=== PATIENT | female | born 1955 | race Caucasian/White ===

== ENCOUNTER → 2017-02-21 | Outpatient (CLI) | payer BC ==
--- NOTE | 2017-02-22 12:19 | MM ---
Reason for exam: screening (asymptomatic). Last mammogram was performed 1 year ago. History: Patient is postmenopausal. Family history of breast cancer in paternal grandmother at age 70 and breast cancer in maternal aunt at age 40. Physical Findings: A clinical breast exam by your physician is recommended on an annual basis and results should be correlated with mammographic findings. MG Screening Mammo w CAD Bilateral CC and MLO view(s) were taken. Prior study comparison: February 21, 2016, bilateral MG 3d screening mammo w/cad. There are scattered fibroglandular densities. There is no discrete abnormality. No significant changes when compared with prior studies. ASSESSMENT: Negative, BI-RAD 1 RECOMMENDATION: Routine screening mammogram of both breasts in 1 year.
== END | disposition home or self-care (01) ==
LOC: RADMAMWWP 13:19
PROVIDERS: ATTEND Family Medicine
DX: Z12.31 Encounter for screening mammogram for malignant neoplasm of breast (principal)

== ENCOUNTER 2017-12-12 23:46 | Inpatient (IN) | payer BC ==
[2017-12-13] MEDS ORDERED: ACETAMINOPHEN TAB 500 MG TAB PO STA (00:19)
[2017-12-13] MEDS ORDERED: IBUPROFEN 600 MG TAB PO STA (00:19)
--- NOTE | 2017-12-13 00:33 | ED ---
General Adult HPI - General Chief complaint: Fall Stated complaint: Fall, Weakness Time Seen by Provider: 12/13/17 00:13 Source: patient Mode of arrival: wheelchair Limitations: no limitations - History of Present Illness Initial comments: 62-year-old female patient presents to the emergency department today for evaluation of fever and weakness. Patient states that she came down with a sore throat, mild nasal congestion, and fever on Saturday. She states that she did see her primary care physician was diagnosed with influenza despite negative testing and started on Tamiflu. Patient states that she has been taking the Tamiflu as directed. She states that she has continued to have fevers and has been getting progressively more weak. She states that tonight she was coming down the stairs her legs felt very weak and she fell down the last 4 steps landing on her knees. Patient states that she has mild tenderness over the knees, but no difficulty with range of motion or significant pain. She states that she has been feeling mildly nauseated with this. She denies any cough, shortness of breath, abdominal pain, or back pain. Patient denies any recent rash, chest pain, vomiting, diarrhea, constipation, back pain, numbness, tingling, dizziness, hematuria, dysuria, urinary urgency, urinary frequency, headache, visual changes, or any other complaints. - Related Data Allergies Allergy/AdvReac Type Severity Reaction Status Date / Time dapagliflozin [From [facility]] Allergy Chest Pain Verified 12/12/17 23:57 Review of Systems ROS Statement: Those systems with pertinent positive or pertinent negative responses have been documented in the HPI. ROS Other: All systems not noted in ROS Statement are negative. Past Medical History Past Medical History: Asthma, Diabetes Mellitus, Hyperlipidemia, Hypertension, Thyroid Disorder History of Any Multi-Drug Resistant Organisms: None Reported Past Surgical History: Section, Hernia Repair, Hysterectomy, Joint Replacement, Orthopedic Surgery Additional Past Surgical History / Comment(s): bilateral knee replacement, left knee scope Past Psychological History: Anxiety Smoking Status: Former smoker Past Alcohol Use History: None Reported Past Drug Use History: None Reported General Exam Limitations: no limitations General appearance: alert, in no apparent distress Eye exam: Present: normal appearance, PERRL, EOMI. Absent: scleral icterus, conjunctival injection, periorbital swelling ENT exam: Present: normal exam, normal oropharynx, mucous membranes moist, TM's normal bilaterally Respiratory exam: Present: normal lung sounds bilaterally. Absent: respiratory distress, wheezes, rales, rhonchi, stridor Cardiovascular Exam: Present: normal rhythm, tachycardia, normal heart sounds. Absent: systolic murmur, diastolic murmur, rubs, gallop, clicks GI/Abdominal exam: Present: soft, normal bowel sounds. Absent: distended, tenderness, guarding, rebound, rigid Neurological exam: Present: alert, oriented X3, CN II-XII intact Psychiatric exam: Present: normal affect, normal mood Skin exam: Present: warm, dry, intact, normal color. Absent: rash Course Vital Signs 12/12/17 12/13/17 23:52 01:32 Temperature 101.9 F H 100.9 F H Pulse Rate 126 H 105 H Respiratory 17 18 Rate Blood Pressure 134/64 101/55 O2 Sat by Pulse 94 L 95 Oximetry - Reevaluation(s) Reevaluation #1: 12/13/17 02:21 Sepsis diagnosed at 0221. Medical Decision Making - Medical Decision Making 62-year-old female patient presented to the emergency department today for evaluation of fever and weakness. Physical examination was unremarkable. Patient labs reviewed and did show white blood cell count of 19.9, hemoglobin of 11, neutrophils 17.2, potassium 3.0, urinalysis did show cloudy appearance with 1+ protein, trace blood, positive nitrite, large leukocyte esterase, 9 red blood cells, 121 white blood cells, few white blood cell clumps, many bacteria, 4 hyaline casts, and moderate mucus. Patient was negative for influenza or strep. Chest x-ray was negative for any acute cardiopulmonary process. Patient does meet sepsis criteria elevated heart rate, elevated temperature, and white count of 19.9. We will start patient on Rocephin and give her IV fluids. Potassium will be replaced orally. Patient will be admitted to Dr. Velasquez's service. - Lab Data Result diagrams: 12/13/17 00:50 12/13/17 00:50 Lab Results 12/13/17 12/13/17 12/13/17 Range/Units 00:50 00:50 00:50 WBC 19.9 H (3.8-10.6) k/uL RBC 3.95 (3.80-5.40) m/uL Hgb 11.0 L (11.4-16.0) gm/dL Hct 33.2 L (34.0-46.0) % MCV 84.0 (80.0-100.0) fL MCH 27.9 (25.0-35.0) pg MCHC 33.2 (31.0-37.0) g/dL RDW 13.7 (11.5-15.5) % Plt Count 305 (150-450) k/uL Neutrophils % 87 % Lymphocytes % 3 % Monocytes % 8 % Eosinophils % 1 % Basophils % 0 % Neutrophils # 17.2 H (1.3-7.7) k/uL Lymphocytes # 0.6 L (1.0-4.8) k/uL Monocytes # 1.5 H (0-1.0) k/uL Eosinophils # 0.1 (0-0.7) k/uL Basophils # 0.0 (0-0.2) k/uL PT (9.0-12.0) sec INR (<1.2) APTT (22.0-30.0) sec Sodium 137 (137-145) mmol/L Potassium 3.0 L* (3.5-5.1) mmol/L Chloride 102 (98-107) mmol/L Carbon Dioxide 21 L (22-30) mmol/L Anion Gap 14 mmol/L BUN 15 (7-17) mg/dL Creatinine 0.90 (0.52-1.04) mg/dL Est GFR (CKD-EPI)AfAm 80 (>60 ml/min/1.73 sqM) Est GFR (CKD-EPI)NonAf 70 (>60 ml/min/1.73 sqM) Glucose 144 H (74-99) mg/dL Plasma Lactic Acid Abram (0.7-2.0) mmol/L Calcium 10.2 (8.4-10.2) mg/dL Total Bilirubin 0.8 (0.2-1.3) mg/dL AST 24 (14-36) U/L ALT 37 (9-52) U/L Alkaline Phosphatase 108 (38-126) U/L Total Protein 6.1 L (6.3-8.2) g/dL Albumin 3.4 L (3.5-5.0) g/dL Urine Color Urine Appearance (Clear) Urine pH (5.0-8.0) Ur Specific [place] (1.001-1.035) Urine Protein (Negative) Urine Glucose (UA) (Negative) Urine Ketones (Negative) Urine Blood (Negative) Urine Nitrite (Negative) Urine Bilirubin (Negative) Urine Urobilinogen (<2.0) mg/dL Ur Leukocyte Esterase (Negative) Urine RBC (0-5) /hpf Urine WBC (0-5) /hpf Urine WBC Clumps (None) /hpf Ur Squamous Epith Cells (0-4) /hpf Urine Bacteria (None) /hpf Hyaline Casts (0-2) /lpf Urine Mucus (None) /hpf Influenza Type A RNA Not Detected (Not Detectd) Influenza Type B (PCR) Not Detected (Not Detectd) Group A Strep Rapid (Negative) 12/13/17 12/13/17 12/13/17 Range/Units 00:50 00:50 00:50 WBC (3.8-10.6) k/uL RBC (3.80-5.40) m/uL Hgb (11.4-16.0) gm/dL Hct (34.0-46.0) % MCV (80.0-100.0) fL MCH (25.0-35.0) pg MCHC (31.0-37.0) g/dL RDW (11.5-15.5) % Plt Count (150-450) k/uL Neutrophils % % Lymphocytes % % Monocytes % % Eosinophils % % Basophils % % Neutrophils # (1.3-7.7) k/uL Lymphocytes # (1.0-4.8) k/uL Monocytes # (0-1.0) k/uL Eosinophils # (0-0.7) k/uL Basophils # (0-0.2) k/uL PT 10.7 (9.0-12.0) sec INR 1.1 (<1.2) APTT 25.7 (22.0-30.0) sec Sodium (137-145) mmol/L Potassium (3.5-5.1) mmol/L Chloride (98-107) mmol/L Carbon Dioxide (22-30) mmol/L Anion Gap mmol/L BUN (7-17) mg/dL Creatinine (0.52-1.04) mg/dL Est GFR (CKD-EPI)AfAm (>60 ml/min/1.73 sqM) Est GFR (CKD-EPI)NonAf (>60 ml/min/1.73 sqM) Glucose (74-99) mg/dL Plasma Lactic Acid Abram 2.0 (0.7-2.0) mmol/L Calcium (8.4-10.2) mg/dL Total Bilirubin (0.2-1.3) mg/dL AST (14-36) U/L ALT (9-52) U/L Alkaline Phosphatase (38-126) U/L Total Protein (6.3-8.2) g/dL Albumin (3.5-5.0) g/dL Urine Color Yellow Urine Appearance Cloudy H (Clear) Urine pH 6.0 (5.0-8.0) Ur Specific [place] 1.020 (1.001-1.035) Urine Protein 1+ H (Negative) Urine Glucose (UA) Negative (Negative) Urine Ketones Negative (Negative) Urine Blood Trace H (Negative) Urine Nitrite Positive H (Negative) Urine Bilirubin Negative (Negative) Urine Urobilinogen <2.0 (<2.0) mg/dL Ur Leukocyte Esterase Large H (Negative) Urine RBC 9 H (0-5) /hpf Urine WBC 121 H (0-5) /hpf Urine WBC Clumps Few H (None) /hpf Ur Squamous Epith Cells 3 (0-4) /hpf Urine Bacteria Many H (None) /hpf Hyaline Casts 4 H (0-2) /lpf Urine Mucus Moderate H (None) /hpf Influenza Type A RNA (Not Detectd) Influenza Type B (PCR) (Not Detectd) Group A Strep Rapid (Negative) 12/13/17 Range/Units 00:50 WBC (3.8-10.6) k/uL RBC (3.80-5.40) m/uL Hgb (11.4-16.0) gm/dL Hct (34.0-46.0) % MCV (80.0-100.0) fL MCH (25.0-35.0) pg MCHC (31.0-37.0) g/dL RDW (11.5-15.5) % Plt Count (150-450) k/uL Neutrophils % % Lymphocytes % % Monocytes % % Eosinophils % % Basophils % % Neutrophils # (1.3-7.7) k/uL Lymphocytes # (1.0-4.8) k/uL Monocytes # (0-1.0) k/uL Eosinophils # (0-0.7) k/uL Basophils # (0-0.2) k/uL PT (9.0-12.0) sec INR (<1.2) APTT (22.0-30.0) sec Sodium (137-145) mmol/L Potassium (3.5-5.1) mmol/L Chloride (98-107) mmol/L Carbon Dioxide (22-30) mmol/L Anion Gap mmol/L BUN (7-17) mg/dL Creatinine (0.52-1.04) mg/dL Est GFR (CKD-EPI)AfAm (>60 ml/min/1.73 sqM) Est GFR (CKD-EPI)NonAf (>60 ml/min/1.73 sqM) Glucose (74-99) mg/dL Plasma Lactic Acid Abram (0.7-2.0) mmol/L Calcium (8.4-10.2) mg/dL Total Bilirubin (0.2-1.3) mg/dL AST (14-36) U/L ALT (9-52) U/L Alkaline Phosphatase (38-126) U/L Total Protein (6.3-8.2) g/dL Albumin (3.5-5.0) g/dL Urine Color Urine Appearance (Clear) Urine pH (5.0-8.0) Ur Specific [place] (1.001-1.035) Urine Protein (Negative) Urine Glucose (UA) (Negative) Urine Ketones (Negative) Urine Blood (Negative) Urine Nitrite (Negative) Urine Bilirubin (Negative) Urine Urobilinogen (<2.0) mg/dL Ur Leukocyte Esterase (Negative) Urine RBC (0-5) /hpf Urine WBC (0-5) /hpf Urine WBC Clumps (None) /hpf Ur Squamous Epith Cells (0-4) /hpf Urine Bacteria (None) /hpf Hyaline Casts (0-2) /lpf Urine Mucus (None) /hpf Influenza Type A RNA (Not Detectd) Influenza Type B (PCR) (Not Detectd) Group A Strep Rapid Negative (Negative) - Radiology Data Radiology results: report reviewed, image reviewed Two-view x-ray of the chest shows a heart media's enema normal. Lungs are clear. Diaphragm is normal. Bony thorax is intact. There is a 2 mm calcified granuloma in the right lower lobe. Impression by Dr. Reeder shows no active cardiopulmonary disease. Normal heart. No change. Disposition Clinical Impression: Sepsis, Urinary tract infection, Hypokalemia Disposition: ADMITTED IP TO THIS HOSP Condition: Serious Is patient prescribed a controlled substance at d/c from ED?: No Referrals: Jorge Vidal III, MD [Primary Care Provider] - 1-2 days Decision to Admit Reason: Admit from EC Decision Date: 12/13/17 Decision Time: 02:32
[2017-12-13] MEDS: SODIUM CHLORIDE 0.9% 500 ML IV SCH ×2 (00:50→00:51)
[2017-12-13 01:11] LABS: Basophils % (A) 0 %; Eosinophils # (A) 0.1 k/uL (0-0.7); Eosinophils % (A) 1 %; HCT 33.2 % (34.0-46.0); Lymphocytes # (A) 0.6 k/uL (1.0-4.8); Lymphocytes % (A) 3 %; MCH 27.9 pg (25.0-35.0); MCHC 33.2 g/dL (31.0-37.0); Mean Platelet Volume 7.1; Monocytes # (A) 1.5 k/uL (0-1.0); Monocytes % (A) 8 %; Neutrophils # (A) 17.2 k/uL (1.3-7.7); Neutrophils % (A) 87 %; Platelet Count 305 k/uL (150-450); RBC 3.95 m/uL (3.80-5.40); RDW 13.7 % (11.5-15.5); WBC 19.9 k/uL (3.8-10.6)
--- NOTE | 2017-12-13 01:12 | XR ---
EXAMINATION TYPE: XR chest 2V DATE OF EXAM: 12/13/2017 COMPARISON: 10/03/2015 HISTORY: Fever TECHNIQUE: Frontal and lateral views of the chest are obtained. FINDINGS: Heart and mediastinum are normal. Lungs are clear. Diaphragm is normal. Bony thorax is int act. There is a 2 mm calcified granuloma in the right lower lobe. IMPRESSION: No active cardiopulmonary disease. Normal heart. No change.
[2017-12-13 01:14] LABS: Appearance,Urine Cloudy (Clear); Bacteria,Urine Many /hpf; Bilirubin,Urine Negative (Negative); Blood,Urine Trace (Negative); Color,Urine Yellow; Glucose,Urine (UA) Negative (Negative); Hyaline Casts,Urine 4 /lpf (0-2); Ketones,Urine Negative (Negative); Leukocyte Esterase,Urine Large (Negative); Mucus,Urine Moderate /hpf; Nitrite,Urine Positive (Negative); Protein,Urine 1+ (Negative); RBC,Urine 9 /hpf (0-5); Squamous Epithelial Cell,Urine 3 /hpf (0-4); Urobilinogen,Urine <2.0 mg/dL (<2.0); WBC,Urine 121 /hpf (0-5)
[2017-12-13 01:20] LABS: INR 1.1 (<1.2); Partial Thromboplastin Time 25.7 sec (22.0-30.0); Prothrombin Time 10.7 sec (9.0-12.0)
[2017-12-13 01:21] LABS: Albumin 3.4 g/dL (3.5-5.0); Calcium 10.2 mg/dL (8.4-10.2); Total Bilirubin 0.8 mg/dL (0.2-1.3); Total Protein 6.1 g/dL (6.3-8.2)
[2017-12-13] MEDS ORDERED: Potassium Replacement Protocol 1 EACH MISC MISCELLANE PRN (02:19)
[2017-12-13] MEDS ORDERED: cefTRIAXone IN SWFI 1,000 MG/10 ML SYRINGE IVP STA (02:21)
[2017-12-13] MEDS ORDERED: NALOXONE 0.4 MG/ML 1 ML VIAL IV PRN (02:21)
[2017-12-13] MEDS ORDERED: IBUPROFEN 400 MG TAB PO PRN (02:21)
[2017-12-13] MEDS ORDERED: SODIUM CHLORIDE 0.9% 1,000 ML IV ONE (02:25)
[2017-12-13] MEDS ORDERED: SODIUM CHLORIDE 0.9% 500 ML IV ONE (02:25)
[2017-12-13] MEDS: SODIUM CHLORIDE 0.9% 1,000 ML IV SCH ×2 (02:46→11:36)
[2017-12-13] MEDS ORDERED: Magnesium Replacement Protocol 1 EACH MISC MISCELLANE PRN (03:02)
[2017-12-13] MEDS: MAGNESIUM SULFATE-D5W PMX 1 GM in DEXTROSE/WATER 1 100ML.BAG IVPB SCH ×2 (03:16→05:56)
[2017-12-13] MEDS: POTASSIUM CHLORIDE ER 20 MEQ TAB.ER PO SCH ×2 (03:18→10:06)
[2017-12-13 05:49] VITALS: BMI 32.1
[2017-12-13] MEDS: ACETAMINOPHEN TAB 325 MG TAB PO PRN ×3 (08:22→21:58)
[2017-12-13] MEDS ORDERED: ALPRAZolam 0.25 MG TAB PO PRN (10:09)
[2017-12-13] MEDS: metFORMIN 500 MG TAB PO SCH ×2 (10:49→20:26)
[2017-12-13] MEDS: LEVOTHYROXINE 137 MCG TAB PO SCH (10:50)
[2017-12-13] MEDS: OMEGA 3 1200MG PO SCH ×2 (10:52→21:59)
[2017-12-13] MEDS: IBUPROFEN 400 MG TAB PO PRN ×2 (11:20→23:38)
[2017-12-13 11:55] LABS: Glucose,Whole Blood 182 mg/dL (75-99)
[2017-12-13] MEDS: INSULIN ASPART 100 UNIT/ML 1 ML 10 ML VIAL SQ SCH ×3 (12:05→21:51)
[2017-12-13] MEDS ORDERED: ALBUTEROL NEBULIZED 2.5 MG/3 ML INHALATION PRN (12:28)
[2017-12-13 12:48] LABS: Potassium 3.4 mmol/L (3.5-5.1)
[2017-12-13] MEDS: 0.9% NACL WITH KCL 40 MEQ/L 1,000 ML IV SCH ×2 (13:40→20:10)
[2017-12-13] MEDS: PANTOPRAZOLE 40 MG/10 ML VIAL IVP SCH (13:44)
[2017-12-13] MEDS: cefTRIAXone IN SWFI 1,000 MG/10 ML SYRINGE IVP SCH (14:14)
--- NOTE | 2017-12-13 14:41 | HP ---
HISTORY AND PHYSICAL CHIEF COMPLAINTS: Fall, weakness and fever. HISTORY OF PRESENT ILLNESS: This 62-year-old woman with a past medical history of diabetes, asthma, hypertension, hyperlipidemia, hypothyroidism, anxiety being followed by Dr. Vidal in the outpatient setting was not feeling well since Saturday. The patient had cold sweats, shaking, chills and subsequently was treated empirically with Tamiflu on outpatient setting. Influenza test was negative. At this time, patient complains of back pain and complaints of weakness. The patient apparently almost fell and the patient had fever and the patient came to [facility] and admitted for further evaluation and treatment. Pyelonephritis suspected. The patient also had some back pain also. . No history of any chest pain, palpitations, hematochezia or melena or diarrhea at this time. PAST MEDICAL HISTORY: History of asthma, diabetes, hypertension, hyperlipidemia, hypothyroidism. MEDICATIONS: Medications prior to admission include home medications are: 1. Januvia 100 mg p.o. at bedtime. 2. Glucophage 1000 mg p.o. b.i.d. 3. Fish oil 1200 mg p.o. b.i.d. 4. Singulair 10 mg at bedtime. 5. Lisinopril 20/25 one p.o. q.a.m. 6. Synthroid 137 mcg p.o. q.a.m. 7. Welchol 1875 mg p.o. b.i.d. 8. Symbicort 80/4.5 two puffs b.i.d. 9. Lipitor 10 mg at bedtime. 10.Ecotrin 81 mg at bedtime. 11.ProAir HFA 1 to 2 puffs q.6 p.r.n. 12.Xanax 0.5 t.i.d. p.r.n. ALLERGIES: Allergies are ACTOS, FARXIGA FENOFIBRATE, WALNUT. FAMILY HISTORY: History of CVA, TIA, diabetes mellitus, seizure disorder, carotid artery surgery , seizures in the family. SOCIAL HISTORY: Previous history of smoking. No history of current smoking or alcohol intake. REVIEW OF SYSTEMS: ENT: No diminished hearing or diminished vision. CARDIOVASCULAR: No angina. RESPIRATORY: No cough or hemoptysis. GI: As mentioned earlier. : As mentioned earlier. NERVOUS SYSTEM: As mentioned earlier. ALLERGY/IMMUNOLOGY: Asthma. MUSCULOSKELETAL: As mentioned earlier. HEMATOLOGY/ONCOLOGY: No history of anemia. ENDOCRINE: Diabetes and hypothyroidism. CONSTITUTIONAL: As mentioned earlier. DERMATOLOGY: Negative. RHEUMATOLOGY: Negative. PSYCHIATRY: As mentioned earlier. PHYSICAL EXAMINATION: The patient is alert, oriented x3. Pulse 128, blood pressure 136/71, respiration 20, temperature 102.9, pulse ox 98% on room air. HEENT: Conjunctivae normal. Oral mucosa moist. Neck is no jugular venous distention. No carotid bruit. No thyroid enlargement. No lymph node enlargement. CARDIOVASCULAR: S1, S2 muffled. No S3, no S4. RESPIRATORY: Breath sounds diminished at the bases. No rhonchi, no crackles. ABDOMEN: Soft. Mild diffuse discomfort in the back area. Otherwise no guarding. No mass palpable. LEGS: No edema, no swelling. NERVOUS SYSTEM: Higher function as mentioned earlier. Moves all 4 limbs. No focal motor deficits. LYMPHATICS: No lymphadenopathy of the neck, axillae or groin. SKIN: No ulcer, rash or bleeding. LABS: WBC 19.9, hemoglobin 11. Sodium 137, potassium 3. Glucose 144. Magnesium 1.5. ASSESSMENT: 1. Fever, rigors, chills with possible urinary tract infection with sepsis with acute pyelonephritis. 2. Hypokalemia. 3. Hypomagnesemia. 4. Increased WBC. 5. Obesity with body mass index of 32.1. 6. Diabetes mellitus type 2. 7. Asthma. 8. Hypertension. 9. Hyperlipidemia. 10.Hypothyroidism. 11.History of section. 12.History of degenerative joint disease. 13.History of anxiety. 14.Remote history of nicotine dependence. RECOMMENDATIONS AND DISCUSSION: This 62-year-old woman presented with multiple complex medical issues, we will monitor the patient closely. Continue the current medications. Continue symptomatic treatment. Otherwise at this time I recommend initiate broad-spectrum IV antibiotics, cultures, infectious disease evaluation. Otherwise, I would also recommend a CAT scan of the abdomen and pelvis. Supplement and replace potassium and magnesium. Repeat labs. The overall prognosis guarded because of multiple complex medical issues. See orders for details. I would also recommend proton pump inhibitors and DVT prophylaxis also. Further recommendations to follow. MMODL / IJN: [id number] / MTDD
[2017-12-13] MEDS: IOPAMIDOL-300 CONTRAST 30 ML VIAL (ORAL USE) PO PRN ×2 (15:07→16:08)
[2017-12-13] MEDS ORDERED: RX INFO: IV CONTRAST WAS GIVEN 1 EACH MISC MISCELLANE PRN (15:34)
[2017-12-13 17:11] LABS: Glucose,Whole Blood 129 mg/dL (75-99)
[2017-12-13] MEDS: COLESEVELAM 625 MG TAB PO SCH (17:34)
--- NOTE | 2017-12-13 17:42 | CT ---
EXAMINATION TYPE: CT abdomen pelvis w con DATE OF EXAM: 12/13/2017 COMPARISON: 06/25/2013 HISTORY: pyelonephritis/UTI CT DLP: 1816 mGycm Automated exposure control for dose reduction was used. TECHNIQUE: Helical acquisition of images was performed from the lung bases through the pelvis. CONTRAST: Performed with Oral Contrast and with IV Contrast, patient injected with 100 mL of Isovue 300. FINDINGS: There is mild subsegmental atelectasis at the lung bases.. There is no pleural effusion. There is no pericardial effusion. Heart appears normal. Liver spleen pancreas gallbladder appear normal. Bile ducts are not dilated. There is no adrenal mass. There is heterogeneous decreased density on the contrast images involving b oth kidneys. This is seen in the upper and lower poles of both kidneys. The delayed images show no co ntrast in the renal collecting systems. I see no hydronephrosis. There is perinephric edema. There is no ascites. I see no intestinal wall thickening. There are no dilated loops. Bladder distend s smoothly. There is no evidence of a pelvic mass. Appendix appears normal. Bony structures appear in tact. There is no sign of free air. IMPRESSION: THERE ARE PATCHY AREAS OF ABNORMAL DECREASED ENHANCEMENT OF THE RENAL CORTEX INVOLVING UPPER AND LOWE R POLES OF BOTH KIDNEYS. THERE IS VERY LITTLE CONTRAST IN THE CALYCES ON THE DELAYED IMAGES. THIS IS CONSISTENT WITH PYELONEPHRITIS AND SOME DEGREE OF RENAL FAILURE. THIS IS A CHANGE COMPARED TO OLD CT SCAN. NORMAL APPENDIX. MINIMAL SUBSEGMENTAL ATELECTASIS AT THE LUNG BASES.
[2017-12-13] MEDS: SYMBICORT 80-4.5 MCG INHALER INHALATION SCH (19:17)
[2017-12-13] MEDS: LINAGLIPTIN 5 MG TABLET PO SCH (20:26)
[2017-12-13] MEDS: MONTELUKAST 10 MG TAB PO SCH (20:26)
[2017-12-13] MEDS: ATORVASTATIN 10 MG TAB PO SCH (20:26)
[2017-12-13] MEDS: ASPIRIN 81 MG PO SCH (20:26)
[2017-12-13] MEDS: HEPARIN SODIUM,PORCINE 5,000 UNIT/ML 1 ML VIAL SQ SCH (20:27)
[2017-12-13 21:06] LABS: Glucose,Whole Blood 154 mg/dL (75-99)
[2017-12-13 22:52] LABS: Hemoglobin A1C 5.7 % (4.0-6.0)
[2017-12-14] MEDS: 0.9% NACL WITH KCL 40 MEQ/L 1,000 ML IV SCH ×2 (02:26→12:14)
[2017-12-14] MEDS: ACETAMINOPHEN TAB 325 MG TAB PO PRN ×3 (04:59→17:52)
[2017-12-14 06:41] LABS: Glucose,Whole Blood 140 mg/dL (75-99)
[2017-12-14] MEDS: LEVOTHYROXINE 137 MCG TAB PO SCH (06:43)
[2017-12-14] MEDS: COLESEVELAM 625 MG TAB PO SCH ×2 (06:43→17:52)
[2017-12-14] MEDS: INSULIN ASPART 100 UNIT/ML 1 ML 10 ML VIAL SQ SCH ×4 (06:44→21:17)
[2017-12-14] MEDS: metFORMIN 500 MG TAB PO SCH ×2 (06:45→17:52)
[2017-12-14 07:16] LABS: Basophils % (A) 0 %; Eosinophils # (A) 0.1 k/uL (0-0.7); Eosinophils % (A) 0 %; HGB 10.2 gm/dL (11.4-16.0); Lymphocytes % (A) 5 %; MCH 28.2 pg (25.0-35.0); MCHC 31.9 g/dL (31.0-37.0); MCV 88.5 fL (80.0-100.0); Mean Platelet Volume 7.1; Monocytes # (A) 1.3 k/uL (0-1.0); Monocytes % (A) 6 %; Neutrophils # (A) 17.9 k/uL (1.3-7.7); Neutrophils % (A) 86 %; Platelet Count 327 k/uL (150-450); RBC 3.61 m/uL (3.80-5.40); RDW 13.8 % (11.5-15.5); WBC 20.8 k/uL (3.8-10.6)
[2017-12-14 07:19] LABS: Anion Gap 14 mmol/L; Blood Urea Nitrogen 12 mg/dL (7-17); Calcium 9.1 mg/dL (8.4-10.2); Carbon Dioxide 16 mmol/L (22-30); Chloride 111 mmol/L (98-107); Glucose 125 mg/dL (74-99); Magnesium 1.9 mg/dL (1.6-2.3); Potassium 4.8 mmol/L (3.5-5.1); Sodium 141 mmol/L (137-145)
[2017-12-14] MEDS: SYMBICORT 80-4.5 MCG INHALER INHALATION SCH ×3 (08:00→19:21)
[2017-12-14] MEDS: PANTOPRAZOLE 40 MG/10 ML VIAL IVP SCH (09:34)
[2017-12-14] MEDS: HEPARIN SODIUM,PORCINE 5,000 UNIT/ML 1 ML VIAL SQ SCH ×2 (09:34→21:17)
[2017-12-14] MEDS: cefTRIAXone IN SWFI 1,000 MG/10 ML SYRINGE IVP SCH (09:34)
[2017-12-14] MEDS: LISINOPRIL-HCTZ 20-25 MG 1 EACH TAB PO SCH (09:35)
[2017-12-14] MEDS: OMEGA 3 1200MG PO SCH ×2 (09:36→22:45)
[2017-12-14 11:51] LABS: Glucose,Whole Blood 153 mg/dL (75-99)
[2017-12-14] MEDS: 0.9% NACL WITH KCL 20 MEQ/L 1,000 ML IV SCH ×2 (12:01→18:47)
[2017-12-14] MEDS: IBUPROFEN 400 MG TAB PO PRN ×2 (12:37→20:27)
[2017-12-14 17:06] LABS: Glucose,Whole Blood 146 mg/dL (75-99)
--- NOTE | 2017-12-14 17:09 | PN ---
PROGRESS NOTE DATE OF SERVICE: 12/14/2017 This 62-year-old woman who was admitted with a fall, rigors, chills, with a possible UTI, severe pyelonephritis, is being closely monitored. No chest pain. No palpitations. The patient is still running a fever. On exam, alert and oriented x3. Pulse is 112, blood pressure 130/81, respiration 18, temperature 100 degrees, pulse ox 97% on room air. HEENT: Conjunctivae normal. NECK: No jugular venous distention. CARDIOVASCULAR SYSTEM: S1, S2 muffled. RESPIRATORY SYSTEM: Breath sounds diminished at the bases. No rhonchi. No crackles. ABDOMEN: Soft. Mild diffuse discomfort. No mass palpable. LEGS: No edema. No swelling. NERVOUS SYSTEM: No focal deficit. LABS: WBC 20.8, hemoglobin 10.2. Lactic acid 2.1. ASSESSMENT: 1. Fever, rigor, chills; possible acute urinary tract infection and pyelonephritis with sepsis. 2. Hypokalemia. 3. Hypomagnesemia. 4. Increased white count. 5. Obesity with body mass index of 32.1. 6. Diabetes mellitus, type 2. 7. History of asthma. 8. Hypertension. 9. Hyperlipidemia. RECOMMENDATIONS AND DISCUSSION: I recommend to continue current medication, continue with the monitoring, symptomatic treatment. Otherwise at this time the urine culture showed Gram-negative bacilli. Continue with broad-spectrum IV antibiotics. Closely follow with Infectious Disease. Guarded prognosis. Further recommendations to follow. MMODL / IJN: [id number] /
--- NOTE | 2017-12-14 17:10 | P.CONS ---
History of Present Illness - Reason for Consult Consult date: 12/13/17 - Chief Complaint fever and chills - History of Present Illness 62 year old woman presents to the ER with a several day history of fever and chills. She had been evaluated in the outpatient setting in the clinic and there was concerns to influenza. Influenza testing was negative, despite this she was placed on Tamiflu as well as some cephalexin. Despite that she had no steady improvement in his she had ongoing fevers up to 102 ongoing chills and shaking she presented to the emergency center. She was found to have a temperature 102.9 and evidence of sepsis and Was Admitted. She Has Been Rehydrated She's Been Given Antipyretics Antibiotic Therapy Was Begun. Repeated flu testing was performed and was negative. Tamiflu has been discontinued and antibiotic therapy was started. The patient is complaining of some right flank pain her urines been malodorous but she's had no hematuria. She feels still quite poorly. She has the malaise along with the fever and chill. Which is febrile she feels very poorly. She denying significant cough or sputum production. She has no sinus congestion or rhinorrhea. Denies any abdominal symptoms other than lack of appetite she's had no significant nausea or emesis and no diarrhea. No skin rashes. Review of Systems HEENT:Denies headache or acute visual change. Denies sinus or mouth discomforts. Denies neck stiffness or pain. Denies significant oral cavity pain. Denies difficulty on swallowing. Lungs: Denies significant shortness of breath, cough, sputum production, or hemoptysis. Cardiovascular: Denies significant shortness of breath, chest pain, chest wall pain, orthopnea, dyspnea on exertion, syncope Gastrointestinal:Denies nausea, vomiting, diarrhea, constipation, hematemesis, melena, hematochezia. No no significant change of bowel habit noticed. Musculoskeletal: denies significant myalgias or arthralgias. No new joint swelling. Denies new back pain. Skin: Denies new rash or lesions. No new ulcers or wounds are related.. Neuro: Denies headache or visual change. Denies any new onset weakness or difficulty with ambulation. Denies falls or seizures. Psychiatric:Denies anxiety or depression. Endocrine: Denies significant fatigue, denies significant weight loss or weight gain. Past Medical History Past Medical History: Asthma, Diabetes Mellitus, Hyperlipidemia, Hypertension, Thyroid Disorder History of Any Multi-Drug Resistant Organisms: None Reported Past Surgical History: Section, Hernia Repair, Hysterectomy, Joint Replacement, Orthopedic Surgery Additional Past Surgical History / Comment(s): bilateral knee replacement, left knee scope Past Anesthesia/Blood Transfusion Reactions: No Reported Reaction Past Psychological History: Anxiety Smoking Status: Former smoker Past Alcohol Use History: None Reported Past Drug Use History: None Reported - Past Family History Mother Family Medical History: CVA/TIA, Diabetes Mellitus, Seizure Disorder Additional Family Medical History / Comment(s): carotid artery surgery, had seizures a week later . Father Additional Family Medical History / Comment(s): spenic anerysm that ruptured, endocarditis Medications and Allergies Home Medications and Allergies Comment(s): Current Medications Acetaminophen (Tylenol Tab) 650 mg PO Q6HR PRN PRN Reason: Mild Pain or Fever > 100.5 Last Admin: 12/14/17 10:44 Dose: 650 mg Albuterol Sulfate (Ventolin Nebulized) 2.5 mg INHALATION RT-Q6H PRN PRN Reason: Wheezing Alprazolam (Xanax) 0.25 mg PO TID PRN PRN Reason: Anxiety Aspirin (Aspirin) 81 mg PO HS [facility] Last Admin: 12/13/17 20:26 Dose: 81 mg Atorvastatin Calcium (Lipitor) 10 mg PO HS [facility] Last Admin: 12/13/17 20:26 Dose: 10 mg Ceftriaxone Sodium (Rocephin) 1,000 mg IVP Q24HR [facility] Last Admin: 12/14/17 09:34 Dose: 1,000 mg Colesevelam HCl (Welchol) 1,875 mg PO BID-W/MEALS [facility] Last Admin: 12/14/17 06:43 Dose: 1,875 mg Lisinopril/HCTZ (Zestoretic 20-25) 1 each PO QAM [facility] Last Admin: 12/14/17 09:35 Dose: 1 each Heparin Sodium (Porcine) (Heparin) 5,000 unit SQ Q12HR [facility] Last Admin: 12/14/17 09:34 Dose: 5,000 unit Potassium Chloride/Sodium Chloride (Ns-Kcl 20 Meq/L Iv Solution) 1,000 mls @ 150 mls/hr IV .Q6H40M [facility] Last Admin: 12/14/17 12:01 Dose: 150 mls/hr Ibuprofen (Motrin) 400 mg PO Q6HR PRN PRN Reason: Fever >102 Last Admin: 12/14/17 12:37 Dose: 400 mg Insulin Aspart (Novolog) 0 unit SQ ACHS [facility] PRN Reason: Protocol Last Admin: 12/14/17 12:00 Dose: 1 unit Levothyroxine Sodium (Synthroid) 137 mcg PO QAM@0630 [facility] Last Admin: 12/14/17 06:43 Dose: 137 mcg Linagliptin (Tradjenta) 5 mg PO HS [facility] Last Admin: 12/13/17 20:26 Dose: 5 mg Metformin HCl (Glucophage) 1,000 mg PO BID-W/MEALS [facility] Last Admin: 12/14/17 06:45 Dose: 1,000 mg Miscellaneous Information (Potassium Per Protocol) 1 each MISCELLANE DAILY PRN ; Protocol PRN Reason: Per Protocol Miscellaneous Information (Magnesium Per Protocol) 1 each MISCELLANE DAILY PRN ; Protocol PRN Reason: Per Protocol Miscellaneous Information (Rx Info: Iv Contrast Was Given) 1 each MISCELLANE DAILY PRN PRN Reason: Per Protocol Stop: 12/15/17 15:35 Montelukast Sodium (Singulair) 10 mg PO [facility] Last Admin: 12/13/17 20:26 Dose: 10 mg Naloxone HCl (Narcan) 0.2 mg IV Q2M PRN PRN Reason: Opioid Reversal Douglas 3 1200mg 1,200 mg PO BID [facility] Last Admin: 12/14/17 09:36 Dose: Not Given Symbicort 80-4.5 Mcg (Inhaler) 2 each INHALATION RT-BID [facility] Last Admin: 12/14/17 08:23 Dose: 2 each Pantoprazole Sodium (Protonix) 40 mg IVP DAILY [facility] Last Admin: 12/14/17 09:34 Dose: 40 mg Home Medications Medication Instructions Recorded Confirmed Type ALPRAZolam [Xanax] 0.25 mg PO TID PRN 12/13/17 12/13/17 History Albuterol Sulfate [Proair Hfa] 1 - 2 puff INHALATION RT-Q6H PRN 12/13/17 History Aspirin [Adult Low Dose Aspirin EC] 81 mg PO HS 12/13/17 12/13/17 History Atorvastatin [Lipitor] 10 mg PO 12/13/17 12/13/17 History Budesonide/Formoterol Fumarate 2 puff INHALATION RT-BID 12/13/17 12/13/17 History [Symbicort 80-4.5 Mcg Inhaler] Colesevelam [Welchol] 1,875 mg PO BID 12/13/17 12/13/17 History Levothyroxine Sodium [Synthroid] 137 mcg PO QAM 12/13/17 12/13/17 History Lisinopril-Hctz 20-25 mg 1 tab PO QAM 12/13/17 12/13/17 History [Zestoretic 20-25] Montelukast [Singulair] 10 mg PO HS 12/13/17 12/13/17 History Douglas-3 Fatty Acids/Fish Oil [Fish 1,200 mg PO BID 12/13/17 12/13/17 History Oil 1,000 mg Softgel] metFORMIN HCL [Glucophage] 1,000 mg PO BID 12/13/17 12/13/17 History sitaGLIPtin [Januvia] 100 mg PO HS 12/13/17 12/13/17 History Allergies Allergy/AdvReac Type Severity Reaction Status Date / Time pioglitazone [From Actos] Allergy Severe lab Verified 12/13/17 08:55 reaction dapagliflozin [From Farxiga] Allergy Chest Pain Verified 12/13/17 08:53 fenofibrate AdvReac Severe muscle Verified 12/13/17 08:56 aches walnut Allergy Severe Swelling Uncoded 12/13/17 08:56 Physical Exam Vitals: Vital Signs Place of the nursing notes for the vital signs 62-year-old woman who is quite uncomfortable with recurrent fever and chills she also has some right flank discomfort HEENT: Anicteric conjunctiva are pink and moist nasal mucosa grossly intact without significant lesions, there is no thrush. Neck: The neck is supple without significant lymphadenopathy or thyromegaly. Lungs: Good bilateral air entry without significant crackles or wheezing. There is no significant bronchial sounds. There is no egophony or dullness. Heart: Regular rate and rhythm with an audible S1-S2, no S3 no S4. There is no significant murmur click or rub, PMI was nondisplaced. Abdomen: Positive bowel sounds soft and nontender without palpable masses or organomegaly. There was no guarding or rebound. There is some right flank tenderness no bruising or ecchymosis seen Extremities: The upper extremities have excellent pulses they are symmetric, no significant petechiae or telangiectasia. No splinter hemorrhages were noted. The lower extremities are free from significant edema. The peripheral pulses were 2+ and symmetric. Neuro: Awake alert oriented to person place and time. There are no acute new gross focal sensory motor deficits. Results CBC & Chem 7: 12/14/17 06:53 04 06:53 Labs: Laboratory Results WBC 20.8 k/uL (3.8-10.6) H 12/14/17 06:53 RBC 3.61 m/uL (3.80-5.40) L 12/14/17 06:53 Hgb 10.2 gm/dL (11.4-16.0) L 12/14/17 06:53 Hct 32.0 % (34.0-46.0) L 12/14/17 06:53 MCV 88.5 fL (80.0-100.0) 12/14/17 06:53 MCH 28.2 pg (25.0-35.0) 12/14/17 06:53 MCHC 31.9 g/dL (31.0-37.0) 12/14/17 06:53 RDW 13.8 % (11.5-15.5) 12/14/17 06:53 Plt Count 327 k/uL (150-450) 12/14/17 06:53 Neutrophils % 86 % 12/14/17 06:53 Lymphocytes % 5 % 12/14/17 06:53 Monocytes % 6 % 12/14/17 06:53 Eosinophils % 0 % 12/14/17 06:53 Basophils % 0 % 12/14/17 06:53 Neutrophils # 17.9 k/uL (1.3-7.7) H 12/14/17 06:53 Lymphocytes # 1.0 k/uL (1.0-4.8) 12/14/17 06:53 Monocytes # 1.3 k/uL (0-1.0) H 12/14/17 06:53 Eosinophils # 0.1 k/uL (0-0.7) 12/14/17 06:53 Basophils # 0.0 k/uL (0-0.2) 12/14/17 06:53 ESR 59 mm/hr (0-20) H 12/13/17 12:41 PT 10.7 sec (9.0-12.0) 12/13/17 00:50 INR 1.1 (<1.2) 12/13/17 00:50 APTT 25.7 sec (22.0-30.0) 12/13/17 00:50 Sodium 141 mmol/L (137-145) 12/14/17 06:53 Potassium 4.8 mmol/L (3.5-5.1) 12/14/17 06:53 Chloride 111 mmol/L (98-107) H 12/14/17 06:53 Carbon Dioxide 16 mmol/L (22-30) L 12/14/17 06:53 Anion Gap 14 mmol/L 12/14/17 06:53 BUN 12 mg/dL (7-17) 12/14/17 06:53 Creatinine 0.69 mg/dL (0.52-1.04) 12/14/17 06:53 Est GFR (CKD-EPI)AfAm >90 (>60 ml/min/1.73 sqM) 12/14/17 06:53 Est GFR (CKD-EPI)NonAf >90 (>60 ml/min/1.73 sqM) 12/14/17 06:53 Glucose 125 mg/dL (74-99) H 12/14/17 06:53 POC Glucose (mg/dL) 153 mg/dL (75-99) H 12/14/17 11:47 POC Glu Blow Torch Burner ID 12/14/17 11:47 Lactic Ac Sepsis Rflx Y 12/14/17 11:44 Plasma Lactic Acid Abram 1.2 mmol/L (0.7-2.0) 12/14/17 15:23 Calcium 9.1 mg/dL (8.4-10.2) 12/14/17 06:53 Magnesium 1.9 mg/dL (1.6-2.3) 12/14/17 06:53 Total Bilirubin 0.8 mg/dL (0.2-1.3) 12/13/17 00:50 AST 24 U/L (14-36) 12/13/17 00:50 ALT 37 U/L (9-52) 12/13/17 00:50 Alkaline Phosphatase 108 U/L (38-126) 12/13/17 00:50 C-Reactive Protein 344.7 mg/L (<10.0) H 12/13/17 12:41 Total Protein 6.1 g/dL (6.3-8.2) L 12/13/17 00:50 Albumin 3.4 g/dL (3.5-5.0) L 12/13/17 00:50 Urine Color Yellow 12/13/17 00:50 Urine Appearance Cloudy (Clear) H 12/13/17 00:50 Urine pH 6.0 (5.0-8.0) 12/13/17 00:50 Ur Specific [place] 1.020 (1.001-1.035) 12/13/17 00:50 Urine Protein 1+ (Negative) H 12/13/17 00:50 Urine Glucose (UA) Negative (Negative) 12/13/17 00:50 Urine Ketones Negative (Negative) 12/13/17 00:50 Urine Blood Trace (Negative) H 12/13/17 00:50 Urine Nitrite Positive (Negative) H 12/13/17 00:50 Urine Bilirubin Negative (Negative) 12/13/17 00:50 Urine Urobilinogen <2.0 mg/dL (<2.0) 12/13/17 00:50 Ur Leukocyte Esterase Large (Negative) H 12/13/17 00:50 Urine RBC 9 /hpf (0-5) H 12/13/17 00:50 Urine WBC 121 /hpf (0-5) H 12/13/17 00:50 Urine WBC Clumps Few /hpf (None) H 12/13/17 00:50 Ur Squamous Epith Cells 3 /hpf (0-4) 12/13/17 00:50 Urine Bacteria Many /hpf (None) H 12/13/17 00:50 Hyaline Casts 4 /lpf (0-2) H 12/13/17 00:50 Urine Mucus Moderate /hpf (None) H 12/13/17 00:50 Influenza Type A RNA Not Detected (Not Detectd) 12/13/17 00:50 Influenza Type B (PCR) Not Detected (Not Detectd) 12/13/17 00:50 Group A Strep Rapid Negative (Negative) 12/13/17 00:50 Microbiology 12/13/17 12:41 Blood Blood Culture - Preliminary No Growth after 24 hours 12/13/17 00:50 Urine,Voided Urine Culture - Preliminary Gram Neg Bacilli 12/13/17 12:16 Blood Blood Culture - Preliminary No Growth after 24 hours 12/13/17 00:50 Blood Blood Culture - Preliminary No Growth after 24 hours 12/13/17 00:50 Throat Group A Strep Throat Culture - Preliminary Comments: Computed tomography scan of the abdomen and pelvis has been requested to evaluate for pyelonephritis and obstruction Assessment and Plan (1) Sepsis Current Visit: Yes Status: Acute Code(s): A41.9 - SEPSIS, UNSPECIFIED ORGANISM SNOMED Code(s): 52754408 (2) Urinary tract infection Current Visit: Yes Status: Acute Code(s): N39.0 - URINARY TRACT INFECTION, SITE NOT SPECIFIED SNOMED Code(s): 40788988 (3) Hypokalemia Current Visit: Yes Status: Acute Code(s): E87.6 - HYPOKALEMIA SNOMED Code( s): 06586095 (4) Pyelonephritis Narrative/Plan: 62-year-old presents to Hospital for evaluation of her high-grade fevers chills or malaise and right flank pain. She was seen in the outpatient setting and was concerned to have influenza although she had negative influenza testing. Despite Tamiflu in addition of cephalexin she did not improve. Because of ongoing fever of 102.9 she presented to the emergency center and has been admitted. With resuscitation and initiation of antibiotic therapy with Rocephin she's feeling somewhat better. A computed tomography scan has been requested to evaluate pyelonephritis as well as any potential obstruction. Cultures are currently in process which would further help direct antibiotic therapy the Rocephin should be adequate given her situation. Pain and fever control seemed to be adequate at this point in time also. No evidence of influenza no Tamiflu as needed. We'll monitor. Current Visit: Yes Status: Acute Code(s): N12 - TUBULO-INTERSTITIAL NEPHRITIS, NOT SPCF ACUTE OR CHRONIC SNOMED Code(s): 18311649
[2017-12-14 21:11] LABS: Glucose,Whole Blood 162 mg/dL (75-99)
[2017-12-14] MEDS: LINAGLIPTIN 5 MG TABLET PO SCH (21:15)
[2017-12-14] MEDS: MONTELUKAST 10 MG TAB PO SCH (21:15)
[2017-12-14] MEDS: ASPIRIN 81 MG PO SCH (21:15)
[2017-12-14] MEDS: ATORVASTATIN 10 MG TAB PO SCH (21:15)
[2017-12-14] MEDS ORDERED: cefTRIAXone IN SWFI 1,000 MG/10 ML SYRINGE IVP SCH (22:15)
--- NOTE | 2017-12-14 22:21 | P.PN ---
Subjective Progress Note Date: 12/14/17 Principal diagnosis: sepsis 62 year old woman presents to the ER with a several day history of fever and chills. She had been evaluated in the outpatient setting in the clinic and there was concerns to influenza. Influenza testing was negative, despite this she was placed on Tamiflu as well as some cephalexin. Despite that she had no steady improvement in his she had ongoing fevers up to 102 ongoing chills and shaking she presented to the emergency center. She was found to have a temperature 102.9 and evidence of sepsis and Was Admitted. She Has Been Rehydrated She's Been Given Antipyretics Antibiotic Therapy Was Begun. Repeated flu testing was performed and was negative. Tamiflu has been discontinued and antibiotic therapy was started. The patient is complaining of some right flank pain her urines been malodorous but she's had no hematuria. She feels still quite poorly. She has the malaise along with the fever and chill. Which is febrile she feels very poorly. She denying significant cough or sputum production. She has no sinus congestion or rhinorrhea. Denies any abdominal symptoms other than lack of appetite she's had no significant nausea or emesis and no diarrhea. No skin rashes. 12/14/2017 patient is feeling slightly better today. Still having fever with chills. But does not feel as ill as she did yesterday. She able to eat and drink without difficulties does not have a regular appetite. Denies nausea or emesis. With her fall is having some body aches still including to the right flank area. Objective - Vital Signs Vital signs: Vital Signs Temp 99.5 F 12/14/17 17:51 Pulse 94 12/14/17 15:00 Resp 22 12/14/17 15:00 BP 136/85 12/14/17 15:00 Pulse Ox 94 L 12/14/17 15:00 Intake & Output 12/14/17 12/14/17 12/15/17 06:59 18:59 06:59 Intake Total 680 Output Total 902 Balance -222 Intake: Oral 680 Output: Urine 902 Other: Voiding Method Toilet # Voids 2 200 - Exam 62-year-old woman who is quite uncomfortable with recurrent fever and chills she also has some right flank discomfort HEENT: Anicteric conjunctiva are pink and moist nasal mucosa grossly intact without significant lesions, there is no thrush. Neck: The neck is supple without significant lymphadenopathy or thyromegaly. Lungs: Good bilateral air entry without significant crackles or wheezing. There is no significant bronchial sounds. There is no egophony or dullness. Heart: Regular rate and rhythm with an audible S1-S2, no S3 no S4. There is no significant murmur click or rub, PMI was nondisplaced. Abdomen: Positive bowel sounds soft and nontender without palpable masses or organomegaly. There was no guarding or rebound. There is some right flank tenderness no bruising or ecchymosis seen Extremities: The upper extremities have excellent pulses they are symmetric, no significant petechiae or telangiectasia. No splinter hemorrhages were noted. The lower extremities are free from significant edema. The peripheral pulses were 2+ and symmetric. Neuro: Awake alert oriented to person place and time. There are no acute new gross focal sensory motor deficits. - Labs CBC & Chem 7: 12/14/17 06:53 12/14/17 06:53 Labs: Abnormal Lab Results - Last 24 Hours (Table) 12/14/17 12/14/17 12/14/17 Range/Units 06:38 06:53 06:53 WBC 20.8 H (3.8-10.6) k/uL RBC 3.61 L (3.80-5.40) m/uL Hgb 10.2 L (11.4-16.0) gm/dL Hct 32.0 L (34.0-46.0) % Neutrophils # 17.9 H (1.3-7.7) k/uL Monocytes # 1.3 H (0-1.0) k/uL Chloride 111 H (98-107) mmol/L Carbon Dioxide 16 L (22-30) mmol/L Glucose 125 H (74-99) mg/dL POC Glucose (mg/dL) 140 H (75-99) mg/dL Plasma Lactic Acid Abram (0.7-2.0) mmol/L 12/14/17 12/14/17 12/14/17 Range/Units 11:25 11:47 17:04 WBC (3.8-10.6) k/uL RBC (3.80-5.40) m/uL Hgb (11.4-16.0) gm/dL Hct (34.0-46.0) % Neutrophils # (1.3-7.7) k/uL Monocytes # (0-1.0) k/uL Chloride (98-107) mmol/L Carbon Dioxide (22-30) mmol/L Glucose (74-99) mg/dL POC Glucose (mg/dL) 153 H 146 H (75-99) mg/dL Plasma Lactic Acid Abram 2.1 H* (0.7-2.0) mmol/L 12/14/17 Range/Units 20:59 WBC (3.8-10.6) k/uL RBC (3.80-5.40) m/uL Hgb (11.4-16.0) gm/dL Hct (34.0-46.0) % Neutrophils # (1.3-7.7) k/uL Monocytes # (0-1.0) k/uL Chloride (98-107) mmol/L Carbon Dioxide (22-30) mmol/L Glucose (74-99) mg/dL POC Glucose (mg/dL) 162 H (75-99) mg/dL Plasma Lactic Acid Abram (0.7-2.0) mmol/L Microbiology - Last 24 Hours (Table) 12/13/17 12:41 Blood Culture - Preliminary Blood No Growth after 24 hours 12/13/17 00:50 Urine Culture - Preliminary Urine,Voided Gram Neg Bacilli 12/13/17 12:16 Blood Culture - Preliminary Blood No Growth after 24 hours 12/13/17 00:50 Blood Culture - Preliminary Blood No Growth after 24 hours Laboratory Results WBC 20.8 k/uL (3.8-10.6) H 12/14/17 06:53 RBC 3.61 m/uL (3.80-5.40) L 12/14/17 06:53 Hgb 10.2 gm/dL (11.4-16.0) L 12/14/17 06:53 Hct 32.0 % (34.0-46.0) L 12/14/17 06:53 MCV 88.5 fL (80.0-100.0) 12/14/17 06:53 MCH 28.2 pg (25.0-35.0) 12/14/17 06:53 MCHC 31.9 g/dL (31.0-37.0) 12/14/17 06:53 RDW 13.8 % (11.5-15.5) 12/14/17 06:53 Plt Count 327 k/uL (150-450) 12/14/17 06:53 Neutrophils % 86 % 12/14/17 06:53 Lymphocytes % 5 % 12/14/17 06:53 Monocytes % 6 % 12/14/17 06:53 Eosinophils % 0 % 12/14/17 06:53 Basophils % 0 % 12/14/17 06:53 Neutrophils # 17.9 k/uL (1.3-7.7) H 12/14/17 06:53 Lymphocytes # 1.0 k/uL (1.0-4.8) 12/14/17 06:53 Monocytes # 1.3 k/uL (0-1.0) H 12/14/17 06:53 Eosinophils # 0.1 k/uL (0-0.7) 12/14/17 06:53 Basophils # 0.0 k/uL (0-0.2) 12/14/17 06:53 ESR 59 mm/hr (0-20) H 12/13/17 12:41 PT 10.7 sec (9.0-12.0) 12/13/17 00:50 INR 1.1 (<1.2) 12/13/17 00:50 APTT 25.7 sec (22.0-30.0) 12/13/17 00:50 Sodium 141 mmol/L (137-145) 12/14/17 06:53 Potassium 4.8 mmol/L (3.5-5.1) 12/14/17 06:53 Chloride 111 mmol/L (98-107) H 12/14/17 06:53 Carbon Dioxide 16 mmol/L (22-30) L 12/14/17 06:53 Anion Gap 14 mmol/L 12/14/17 06:53 BUN 12 mg/dL (7-17) 12/14/17 06:53 Creatinine 0.69 mg/dL (0.52-1.04) 12/14/17 06:53 Est GFR (CKD-EPI)AfAm >90 (>60 ml/min/1.73 sqM) 12/14/17 06:53 Est GFR (CKD-EPI)NonAf >90 (>60 ml/min/1.73 sqM) 12/14/17 06:53 Glucose 125 mg/dL (74-99) H 12/14/17 06:53 POC Glucose (mg/dL) 162 mg/dL (75-99) H 12/14/17 20:59 POC Glu Screwmaker Automatic ID Paige Junior 12/14/17 20:59 Lactic Ac Sepsis Rflx Y 12/14/17 11:44 Plasma Lactic Acid Abram 1.2 mmol/L (0.7-2.0) 12/14/17 15:23 Calcium 9.1 mg/dL (8.4-10.2) 12/14/17 06:53 Magnesium 1.9 mg/dL (1.6-2.3) 12/14/17 06:53 Total Bilirubin 0.8 mg/dL (0.2-1.3) 12/13/17 00:50 AST 24 U/L (14-36) 12/13/17 00:50 ALT 37 U/L (9-52) 12/13/17 00:50 Alkaline Phosphatase 108 U/L (38-126) 12/13/17 00:50 C-Reactive Protein 344.7 mg/L (<10.0) H 12/13/17 12:41 Total Protein 6.1 g/dL (6.3-8.2) L 12/13/17 00:50 Albumin 3.4 g/dL (3.5-5.0) L 12/13/17 00:50 Urine Color Yellow 12/13/17 00:50 Urine Appearance Cloudy (Clear) H 12/13/17 00:50 Urine pH 6.0 (5.0-8.0) 12/13/17 00:50 Ur Specific [place] 1.020 (1.001-1.035) 12/13/17 00:50 Urine Protein 1+ (Negative) H 12/13/17 00:50 Urine Glucose (UA) Negative (Negative) 12/13/17 00:50 Urine Ketones Negative (Negative) 12/13/17 00:50 Urine Blood Trace (Negative) H 12/13/17 00:50 Urine Nitrite Positive (Negative) H 12/13/17 00:50 Urine Bilirubin Negative (Negative) 12/13/17 00:50 Urine Urobilinogen <2.0 mg/dL (<2.0) 12/13/17 00:50 Ur Leukocyte Esterase Large (Negative) H 12/13/17 00:50 Urine RBC 9 /hpf (0-5) H 12/13/17 00:50 Urine WBC 121 /hpf (0-5) H 12/13/17 00:50 Urine WBC Clumps Few /hpf (None) H 12/13/17 00:50 Ur Squamous Epith Cells 3 /hpf (0-4) 12/13/17 00:50 Urine Bacteria Many /hpf (None) H 12/13/17 00:50 Hyaline Casts 4 /lpf (0-2) H 12/13/17 00:50 Urine Mucus Moderate /hpf (None) H 12/13/17 00:50 Influenza Type A RNA Not Detected (Not Detectd) 12/13/17 00:50 Influenza Type B (PCR) Not Detected (Not Detectd) 12/13/17 00:50 Group A Strep Rapid Negative (Negative) 12/13/17 00:50 Microbiology 12/13/17 12:41 Blood Blood Culture - Preliminary No Growth after 24 hours 12/13/17 00:50 Urine,Voided Urine Culture - Preliminary Gram Neg Bacilli 12/13/17 12:16 Blood Blood Culture - Preliminary No Growth after 24 hours 12/13/17 00:50 Blood Blood Culture - Preliminary No Growth after 24 hours 12/13/17 00:50 Throat Group A Strep Throat Culture - Preliminary Assessment and Plan (1) Sepsis Current Visit: Yes Status: Acute Code(s): A41.9 - SEPSIS, UNSPECIFIED ORGANISM SNOMED Code(s): 47052506 (2) Urinary tract infection Current Visit: Yes Status: Acute Code(s): N39.0 - URINARY TRACT INFECTION, SITE NOT SPECIFIED SNOMED Code(s): 25393211 (3) Hypokalemia Current Visit: Yes Status: Acute Code(s): E87.6 - HYPOKALEMIA SNOMED Code( s): 08343923 (4) Pyelonephritis Narrative/Plan: 62-year-old presents to Hospital for evaluation of her high-grade fevers chills or malaise and right flank pain. She was seen in the outpatient setting and was concerned to have influenza although she had negative influenza testing. Despite Tamiflu in addition of cephalexin she did not improve. Because of ongoing fever of 102.9 she presented to the emergency center and has been admitted. With resuscitation and initiation of antibiotic therapy with Rocephin she's feeling somewhat better. A computed tomography scan has been requested to evaluate pyelonephritis as well as any potential obstruction. Cultures are currently in process which would further help direct antibiotic therapy the Rocephin should be adequate given her situation. Pain and fever control seemed to be adequate at this point in time also. No evidence of influenza no Tamiflu as needed. We'll monitor. 12/14/2017 patient feeling slightly better today. She'll is had bouts of fever and chill but less intense and less frequent in the last day. Urine culture does show evidence of gram-negative bacilli we await the final culture results to determine best possible antibiotic therapy to complete her course of treatment for her pyelonephritis. Computed tomography scan does show evidence of multifocal pyelonephritis and concerned potentially decreased renal function. This is discussed with the nursing staff to limit ibuprofen that she is having ensure she is receiving adequate amounts of fluid and make sure monitoring her urinary output to make sure it is adequate. Rocephin will be increased to 2 g a day 1 extra gram tonight and then 2 g each a.m. try to improve renal penetration. Leukocytosis persists as his fever which is not unusual with pyelonephritis. Current Visit: Yes Status: Acute Code(s): N12 - TUBULO-INTERSTITIAL NEPHRITIS, NOT SPCF ACUTE OR CHRONIC SNOMED Code(s): 48764353
[2017-12-14] MEDS ORDERED: cefTRIAXone IN SWFI 1,000 MG/10 ML SYRINGE IVP ONE (22:30)
[2017-12-15] MEDS: 0.9% NACL WITH KCL 20 MEQ/L 1,000 ML IV SCH ×2 (01:10→21:40)
[2017-12-15] MEDS: ACETAMINOPHEN TAB 325 MG TAB PO PRN ×2 (01:46→09:34)
[2017-12-15] MEDS: LEVOTHYROXINE 137 MCG TAB PO SCH (05:48)
[2017-12-15 06:08] LABS: Glucose,Whole Blood 139 mg/dL (75-99)
[2017-12-15] MEDS: metFORMIN 500 MG TAB PO SCH ×2 (06:46→17:06)
[2017-12-15] MEDS: COLESEVELAM 625 MG TAB PO SCH ×2 (06:46→17:07)
[2017-12-15] MEDS: INSULIN ASPART 100 UNIT/ML 1 ML 10 ML VIAL SQ SCH ×4 (06:46→21:31)
[2017-12-15] MEDS: SYMBICORT 80-4.5 MCG INHALER INHALATION SCH ×2 (08:15→19:25)
[2017-12-15] MEDS ORDERED: cefTRIAXone 2,000 MG in SODIUM CHLORIDE 0.9% 100 ML IVPB SCH (09:00)
[2017-12-15] MEDS: PANTOPRAZOLE 40 MG/10 ML VIAL IVP SCH (09:36)
[2017-12-15] MEDS: HEPARIN SODIUM,PORCINE 5,000 UNIT/ML 1 ML VIAL SQ SCH ×2 (09:43→21:15)
[2017-12-15] MEDS: OMEGA 3 1200MG PO SCH ×2 (09:45→21:32)
[2017-12-15] MEDS: LISINOPRIL-HCTZ 20-25 MG 1 EACH TAB PO SCH (09:45)
[2017-12-15] MEDS: cefTRIAXone IN SWFI 2,000 MG/20 ML SYRINGE IVP SCH (09:45)
[2017-12-15 11:09] LABS: Basophils % (A) 0 %; Eosinophils % (A) 0 %; HCT 30.2 % (34.0-46.0); HGB 9.8 gm/dL (11.4-16.0); Lymphocytes # (A) 0.9 k/uL (1.0-4.8); Lymphocytes % (A) 5 %; MCH 28.2 pg (25.0-35.0); MCHC 32.4 g/dL (31.0-37.0); MCV 87.2 fL (80.0-100.0); Monocytes # (A) 0.8 k/uL (0-1.0); Monocytes % (A) 5 %; Neutrophils # (A) 14.6 k/uL (1.3-7.7); Neutrophils % (A) 88 %; Platelet Count 376 k/uL (150-450); RBC 3.46 m/uL (3.80-5.40); WBC 16.5 k/uL (3.8-10.6)
[2017-12-15 11:16] LABS: Anion Gap 11 mmol/L; Blood Urea Nitrogen 8 mg/dL (7-17); Calcium 9.9 mg/dL (8.4-10.2); Carbon Dioxide 17 mmol/L (22-30); Chloride 113 mmol/L (98-107); Glucose 115 mg/dL (74-99); Potassium 4.7 mmol/L (3.5-5.1); Sodium 141 mmol/L (137-145)
--- NOTE | 2017-12-15 11:17 | XR ---
EXAMINATION TYPE: XR shoulder complete LT , 3 VIEWS DATE OF EXAM ORDERED: 12/15/2017 HISTORY: fall down stairs and pain to area. COMPARISON: None. FINDINGS: No fracture or dislocation is seen. There are mild hypertrophic changes in the left AC mery nt. IMPRESSION: 1. NO ACUTE OSSEOUS LESION. 2. MILD DEGENERATIVE CHANGE.
[2017-12-15 12:02] LABS: Glucose,Whole Blood 111 mg/dL (75-99)
[2017-12-15] MEDS: KETOROLAC 30 MG/ML 1 ML VIAL IVP SCH ×2 (12:32→19:28)
--- NOTE | 2017-12-15 14:40 | P.PN ---
Subjective Progress Note Date: 12/15/17 Principal diagnosis: sepsis 62 year old woman presents to the ER with a several day history of fever and chills. She had been evaluated in the outpatient setting in the clinic and there was concerns to influenza. Influenza testing was negative, despite this she was placed on Tamiflu as well as some cephalexin. Despite that she had no steady improvement in his she had ongoing fevers up to 102 ongoing chills and shaking she presented to the emergency center. She was found to have a temperature 102.9 and evidence of sepsis and Was Admitted. She Has Been Rehydrated She's Been Given Antipyretics Antibiotic Therapy Was Begun. Repeated flu testing was performed and was negative. Tamiflu has been discontinued and antibiotic therapy was started. The patient is complaining of some right flank pain her urines been malodorous but she's had no hematuria. She feels still quite poorly. She has the malaise along with the fever and chill. Which is febrile she feels very poorly. She denying significant cough or sputum production. She has no sinus congestion or rhinorrhea. Denies any abdominal symptoms other than lack of appetite she's had no significant nausea or emesis and no diarrhea. No skin rashes. 12/14/2017 patient is feeling slightly better today. Still having fever with chills. But does not feel as ill as she did yesterday. She able to eat and drink without difficulties does not have a regular appetite. Denies nausea or emesis. With her fall is having some body aches still including to the right flank area. 12/15/2017 reveals the patient is feeling considerably better today. She is with improved fever and discomforts have also improved. Did have fever overnight but this seems to be resolved at this time. Objective - Vital Signs Vital signs: Vital Signs Temp 98.9 F 12/15/17 11:40 Pulse 92 12/15/17 11:40 Resp 18 12/15/17 11:40 BP 130/82 12/15/17 11:40 Pulse Ox 96 12/15/17 11:40 Intake & Output 12/14/17 12/15/17 12/15/17 18:59 06:59 18:59 Intake Total 680 400 Output Total 902 1950 550 Balance -150 Intake: Oral 680 400 Output: Urine 902 1950 550 Other: # Voids 200 T-max of 101.3. - Exam 62-year-old woman who is quite uncomfortable with recurrent fever and chills she also has some right flank discomfort HEENT: Anicteric conjunctiva are pink and moist nasal mucosa grossly intact without significant lesions, there is no thrush. Neck: The neck is supple without significant lymphadenopathy or thyromegaly. Lungs: Good bilateral air entry without significant crackles or wheezing. There is no significant bronchial sounds. There is no egophony or dullness. Heart: Regular rate and rhythm with an audible S1-S2, no S3 no S4. There is no significant murmur click or rub, PMI was nondisplaced. Abdomen: Positive bowel sounds soft and nontender without palpable masses or organomegaly. There was no guarding or rebound. There is some right flank tenderness no bruising or ecchymosis seen Extremities: The upper extremities have excellent pulses they are symmetric, no significant petechiae or telangiectasia. No splinter hemorrhages were noted. The lower extremities are free from significant edema. The peripheral pulses were 2+ and symmetric. Neuro: Awake alert oriented to person place and time. There are no acute new gross focal sensory motor deficits. - Labs CBC & Chem 7: 12/15/17 10:48 12/15/17 10:48 Labs: Abnormal Lab Results - Last 24 Hours (Table) 12/14/17 12/14/17 12/15/17 Range/Units 17:04 20:59 06:07 WBC (3.8-10.6) k/uL RBC (3.80-5.40) m/uL Hgb (11.4-16.0) gm/dL Hct (34.0-46.0) % Neutrophils # (1.3-7.7) k/uL Lymphocytes # (1.0-4.8) k/uL Chloride (98-107) mmol/L Carbon Dioxide (22-30) mmol/L Glucose (74-99) mg/dL POC Glucose (mg/dL) 146 H 162 H 139 H (75-99) mg/dL 12/15/17 12/15/17 12/15/17 Range/Units 10:48 10:48 11:42 WBC 16.5 H (3.8-10.6) k/uL RBC 3.46 L (3.80-5.40) m/uL Hgb 9.8 L (11.4-16.0) gm/dL Hct 30.2 L (34.0-46.0) % Neutrophils # 14.6 H (1.3-7.7) k/uL Lymphocytes # 0.9 L (1.0-4.8) k/uL Chloride 113 H (98-107) mmol/L Carbon Dioxide 17 L (22-30) mmol/L Glucose 115 H (74-99) mg/dL POC Glucose (mg/dL) 111 H (75-99) mg/dL Microbiology - Last 24 Hours (Table) 12/13/17 12:16 Blood Culture - Preliminary Blood No Growth after 48 hours 12/14/17 11:19 Blood Culture - Preliminary Blood No Growth after 24 hours 12/13/17 00:50 Group A Strep Throat Culture - Final Throat 12/13/17 00:50 Urine Culture - Final Urine,Voided Escherichia coli 12/13/17 00:50 Blood Culture - Preliminary Blood No Growth after 48 hours 12/13/17 12:41 Blood Culture - Preliminary Blood No Growth after 24 hours Laboratory Results WBC 16.5 k/uL (3.8-10.6) H 12/15/17 10:48 RBC 3.46 m/uL (3.80-5.40) L 12/15/17 10:48 Hgb 9.8 gm/dL (11.4-16.0) L 12/15/17 10:48 Hct 30.2 % (34.0-46.0) L 12/15/17 10:48 MCV 87.2 fL (80.0-100.0) 12/15/17 10:48 MCH 28.2 pg (25.0-35.0) 12/15/17 10:48 MCHC 32.4 g/dL (31.0-37.0) 12/15/17 10:48 RDW 14.0 % (11.5-15.5) 12/15/17 10:48 Plt Count 376 k/uL (150-450) 12/15/17 10:48 Neutrophils % 88 % 12/15/17 10:48 Lymphocytes % 5 % 12/15/17 10:48 Monocytes % 5 % 12/15/17 10:48 Eosinophils % 0 % 12/15/17 10:48 Basophils % 0 % 12/15/17 10:48 Neutrophils # 14.6 k/uL (1.3-7.7) H 12/15/17 10:48 Lymphocytes # 0.9 k/uL (1.0-4.8) L 12/15/17 10:48 Monocytes # 0.8 k/uL (0-1.0) 12/15/17 10:48 Eosinophils # 0.0 k/uL (0-0.7) 12/15/17 10:48 Basophils # 0.0 k/uL (0-0.2) 12/15/17 10:48 ESR 59 mm/hr (0-20) H 12/13/17 12:41 PT 10.7 sec (9.0-12.0) 12/13/17 00:50 INR 1.1 (<1.2) 12/13/17 00:50 APTT 25.7 sec (22.0-30.0) 12/13/17 00:50 Sodium 141 mmol/L (137-145) 12/15/17 10:48 Potassium 4.7 mmol/L (3.5-5.1) 12/15/17 10:48 Chloride 113 mmol/L (98-107) H 12/15/17 10:48 Carbon Dioxide 17 mmol/L (22-30) L 12/15/17 10:48 Anion Gap 11 mmol/L 12/15/17 10:48 BUN 8 mg/dL (7-17) 12/15/17 10:48 Creatinine 0.60 mg/dL (0.52-1.04) 12/15/17 10:48 Est GFR (CKD-EPI)AfAm >90 (>60 ml/min/1.73 sqM) 12/15/17 10:48 Est GFR (CKD-EPI)NonAf >90 (>60 ml/min/1.73 sqM) 12/15/17 10:48 Glucose 115 mg/dL (74-99) H 12/15/17 10:48 POC Glucose (mg/dL) 111 mg/dL (75-99) H 12/15/17 11:42 POC Glu Dealership Manager ID Irais Campbell 12/15/17 11:[address] Glu mg/dL 117 12/13/17 12:16 Hemoglobin A1c 5.7 % (4.0-6.0) 12/13/17 12:16 Lactic Ac Sepsis Rflx Y 12/14/17 11:44 Plasma Lactic Acid Abram 1.2 mmol/L (0.7-2.0) 12/14/17 15:23 Calcium 9.9 mg/dL (8.4-10.2) 12/15/17 10:48 Magnesium 1.9 mg/dL (1.6-2.3) 12/14/17 06:53 Total Bilirubin 0.8 mg/dL (0.2-1.3) 12/13/17 00:50 AST 24 U/L (14-36) 12/13/17 00:50 ALT 37 U/L (9-52) 12/13/17 00:50 Alkaline Phosphatase 108 U/L (38-126) 12/13/17 00:50 C-Reactive Protein 344.7 mg/L (<10.0) H 12/13/17 12:41 Total Protein 6.1 g/dL (6.3-8.2) L 12/13/17 00:50 Albumin 3.4 g/dL (3.5-5.0) L 12/13/17 00:50 Urine Color Yellow 12/13/17 00:50 Urine Appearance Cloudy (Clear) H 12/13/17 00:50 Urine pH 6.0 (5.0-8.0) 12/13/17 00:50 Ur Specific [place] 1.020 (1.001-1.035) 12/13/17 00:50 Urine Protein 1+ (Negative) H 12/13/17 00:50 Urine Glucose (UA) Negative (Negative) 12/13/17 00:50 Urine Ketones Negative (Negative) 12/13/17 00:50 Urine Blood Trace (Negative) H 12/13/17 00:50 Urine Nitrite Positive (Negative) H 12/13/17 00:50 Urine Bilirubin Negative (Negative) 12/13/17 00:50 Urine Urobilinogen <2.0 mg/dL (<2.0) 12/13/17 00:50 Ur Leukocyte Esterase Large (Negative) H 12/13/17 00:50 Urine RBC 9 /hpf (0-5) H 12/13/17 00:50 Urine WBC 121 /hpf (0-5) H 04/20/18 00:50 Urine WBC Clumps Few /hpf (None) H 12/13/17 00:50 Ur Squamous Epith Cells 3 /hpf (0-4) 12/13/17 00:50 Urine Bacteria Many /hpf (None) H 12/13/17 00:50 Hyaline Casts 4 /lpf (0-2) H 12/13/17 00:50 Urine Mucus Moderate /hpf (None) H 12/13/17 00:50 Influenza Type A RNA Not Detected (Not Detectd) 12/13/17 00:50 Influenza Type B (PCR) Not Detected (Not Detectd) 12/13/17 00:50 Group A Strep Rapid Negative (Negative) 12/13/17 00:50 Microbiology 12/13/17 12:16 Blood Blood Culture - Preliminary No Growth after 48 hours 12/14/17 11:19 Blood Blood Culture - Preliminary No Growth after 24 hours 12/13/17 00:50 Throat Group A Strep Throat Culture - Final 12/13/17 00:50 Urine,Voided Urine Culture - Final Escherichia coli 12/13/17 00:50 Blood Blood Culture - Preliminary No Growth after 48 hours 12/13/17 12:41 Blood Blood Culture - Preliminary No Growth after 24 hours Assessment and Plan (1) Sepsis Current Visit: Yes Status: Acute Code(s): A41.9 - SEPSIS, UNSPECIFIED ORGANISM SNOMED Code(s): 75943119 (2) Urinary tract infection Current Visit: Yes Status: Acute Code(s): N39.0 - URINARY TRACT INFECTION, SITE NOT SPECIFIED SNOMED Code(s): 22418677 (3) Hypokalemia Current Visit: Yes Status: Acute Code(s): E87.6 - HYPOKALEMIA SNOMED Code( s): 08178559 (4) Pyelonephritis Narrative/Plan: 62-year-old presents to Hospital for evaluation of her high-grade fevers chills or malaise and right flank pain. She was seen in the outpatient setting and was concerned to have influenza although she had negative influenza testing. Despite Tamiflu in addition of cephalexin she did not improve. Because of ongoing fever of 102.9 she presented to the emergency center and has been admitted. With resuscitation and initiation of antibiotic therapy with Rocephin she's feeling somewhat better. A computed tomography scan has been requested to evaluate pyelonephritis as well as any potential obstruction. Cultures are currently in process which would further help direct antibiotic therapy the Rocephin should be adequate given her situation. Pain and fever control seemed to be adequate at this point in time also. No evidence of influenza no Tamiflu as needed. We'll monitor. 12/14/2017 patient feeling slightly better today. She'll is had bouts of fever and chill but less intense and less frequent in the last day. Urine culture does show evidence of gram-negative bacilli we await the final culture results to determine best possible antibiotic therapy to complete her course of treatment for her pyelonephritis. Computed tomography scan does show evidence of multifocal pyelonephritis and concerned potentially decreased renal function. This is discussed with the nursing staff to limit ibuprofen that she is having ensure she is receiving adequate amounts of fluid and make sure monitoring her urinary output to make sure it is adequate. Rocephin will be increased to 2 g a day 1 extra gram tonight and then 2 g each a.m. try to improve renal penetration. Leukocytosis persists as his fever which is not unusual with pyelonephritis. 12/15/2017 reveals patient to be further improved today. Overall fevers are improving although 101.3 yesterday. But today he is certainly showing her to be feeling better. Her fluids or cut back given the fact that she is having some edema and KATHRYN hose will be applied. Patient control seems to be adequate. Urine culture has revealed evidence of E. coli that is fortunately quite susceptible. When she has resolution of her fevers for more than 24 hours. Then can transition her to oral antibiotic therapy with ciprofloxacin 500 mg orally every 12 hours for 14 days of therapy for her complicated pyelonephritis. Current Visit: Yes Status: Acute Code(s): N12 - TUBULO-INTERSTITIAL NEPHRITIS, NOT SPCF ACUTE OR CHRONIC SNOMED Code(s): 48967887
[2017-12-15 17:03] LABS: Glucose,Whole Blood 104 mg/dL (75-99)
--- NOTE | 2017-12-15 19:34 | PN ---
PROGRESS NOTE DATE OF SERVICE: 12/15/2017 INTERIM HISTORY: This 62-year-old woman who was admitted with rigors, chills and as well as possible UTI with pyelonephritis and sepsis, also complaining of some shoulder pain after the fall the patient sustained. The shoulder x-ray did not show any acute abnormality. No chest pain. No palpitations. No fever. The urine culture showed E coli. The patient on broad spectrum IV antibiotics. PHYSICAL EXAM: Alert and oriented times three. Pulse 98, blood pressure 140/82, respiration 20, temperature 98.6, pulse ox 98% on room air. HEENT: Conjunctivae normal. Oral mucosa moist. Neck is no jugular venous distention. No carotid bruit. No lymph node enlargement. Cardiovascular system: S1, S2. RESPIRATORY: Breath sounds diminished in the bases. A few scattered rhonchi. No crackles. ABDOMEN: Soft, nontender. No mass palpable. Legs no edema. No swelling. NERVOUS SYSTEM: Higher functions as mentioned earlier, moves all 4 limbs, no focal motor or sensory deficits. Lymphatics: No lymph nodes palpable in the neck, axillae or groin. LABS: WBC 16.5, hemoglobin 9.8, sodium 141, potassium 4.7. ASSESSMENT: 1. Fever, rigors, chills, possible acute urinary tract infection with E coli pyelonephritis with sepsis present on admission. 2. Hypokalemia. 3. Hypomagnesemia. 4. Increased WBC. 5. Obesity with body mass of 32.9. 6. Diabetes type 2. 7. History of asthma. RECOMMENDATIONS AND DISCUSSION: Recommend to continue current medications, symptomatic treatment, monitor, management and continue with antibiotics. Otherwise, closely monitor. Guarded prognosis. Further recommendations to follow. Continue with IV antibiotics. Closely follow with Infectious Disease. Continue the rest of the medications. MMODL / IJN: [id number] /
[2017-12-15 20:59] LABS: Glucose,Whole Blood 118 mg/dL (75-99)
[2017-12-15] MEDS: ASPIRIN 81 MG PO SCH (21:15)
[2017-12-15] MEDS: ATORVASTATIN 10 MG TAB PO SCH (21:15)
[2017-12-15] MEDS: LINAGLIPTIN 5 MG TABLET PO SCH (21:16)
[2017-12-15] MEDS: MONTELUKAST 10 MG TAB PO SCH (21:16)
[2017-12-16] MEDS: KETOROLAC 30 MG/ML 1 ML VIAL IVP SCH ×4 (01:12→18:18)
[2017-12-16] MEDS: LEVOTHYROXINE 137 MCG TAB PO SCH (05:53)
[2017-12-16 06:24] LABS: Glucose,Whole Blood 106 mg/dL (75-99)
[2017-12-16] MEDS: metFORMIN 500 MG TAB PO SCH ×2 (06:32→17:28)
[2017-12-16] MEDS: COLESEVELAM 625 MG TAB PO SCH ×2 (06:32→17:28)
[2017-12-16] MEDS: INSULIN ASPART 100 UNIT/ML 1 ML 10 ML VIAL SQ SCH ×4 (06:37→21:32)
[2017-12-16 07:11] LABS: Basophils % (A) 0 %; Eosinophils # (A) 0.1 k/uL (0-0.7); Eosinophils % (A) 1 %; HCT 30.8 % (34.0-46.0); HGB 9.9 gm/dL (11.4-16.0); Lymphocytes # (A) 1.3 k/uL (1.0-4.8); Lymphocytes % (A) 12 %; MCH 28.3 pg (25.0-35.0); MCV 88.5 fL (80.0-100.0); Mean Platelet Volume 6.9; Monocytes # (A) 0.5 k/uL (0-1.0); Monocytes % (A) 4 %; Neutrophils # (A) 8.6 k/uL (1.3-7.7); Neutrophils % (A) 80 %; Platelet Count 426 k/uL (150-450); RBC 3.48 m/uL (3.80-5.40); RDW 13.9 % (11.5-15.5); WBC 10.8 k/uL (3.8-10.6)
[2017-12-16 07:34] LABS: Anion Gap 10 mmol/L; Blood Urea Nitrogen 16 mg/dL (7-17); Calcium 9.9 mg/dL (8.4-10.2); Carbon Dioxide 18 mmol/L (22-30); Chloride 110 mmol/L (98-107); Glucose 90 mg/dL (74-99); Potassium 5.1 mmol/L (3.5-5.1); Sodium 138 mmol/L (137-145)
[2017-12-16] MEDS: HEPARIN SODIUM,PORCINE 5,000 UNIT/ML 1 ML VIAL SQ SCH ×2 (08:50→21:41)
[2017-12-16] MEDS: PANTOPRAZOLE 40 MG/10 ML VIAL IVP SCH (08:50)
[2017-12-16] MEDS: cefTRIAXone IN SWFI 2,000 MG/20 ML SYRINGE IVP SCH (08:51)
[2017-12-16] MEDS: LISINOPRIL-HCTZ 20-25 MG 1 EACH TAB PO SCH (08:51)
[2017-12-16] MEDS: OMEGA 3 1200MG PO SCH (09:01)
[2017-12-16] MEDS: SYMBICORT 80-4.5 MCG INHALER INHALATION SCH ×2 (09:30→19:39)
[2017-12-16 11:35] LABS: Glucose,Whole Blood 111 mg/dL (75-99)
[2017-12-16 17:00] LABS: Glucose,Whole Blood 101 mg/dL (75-99)
--- NOTE | 2017-12-16 18:29 | PN ---
PROGRESS NOTE DATE OF SERVICE: 12/16/2017 This 62-year-old woman who was admitted with fever, rigor, chills and possible acute UTI with E coli pyelonephritis and sepsis is being closely monitored. No chest pain. No palpitations. No fever. On exam, alert and oriented x3. Pulse 95, blood pressure 128/80, respiration 20, temperature 98.1, pulse ox 94% on room air. HEENT: Conjunctivae normal. NECK: No jugular venous distention. CARDIOVASCULAR SYSTEM: S1, S2 muffled. RESPIRATORY SYSTEM: Breath sounds diminished at the bases. A few scattered rhonchi and crackles. ABDOMEN: Soft, non-tender. No mass palpable. LEGS: No edema. No swelling. NERVOUS SYSTEM: No focal deficit. LABS: WBC 10.8, hemoglobin 9.9. ASSESSMENT: 1. Fever, rigor, chills; possible acute urinary tract infection with Escherichia coli with pyelonephritis and sepsis, present on admission. 2. Hypokalemia. 3. Hypomagnesemia. 4. Increased white count. 5. Obesity with body mass index of 32.1. 6. Diabetes mellitus, type 2. 7. History of asthma. RECOMMENDATIONS AND DISCUSSION: I recommend to continue current medication, continue symptomatic treatment. Otherwise, continue the broad-spectrum IV antibiotics. Closely follow with Infectious Disease. Guarded prognosis because of multiple complex medical issues. Further recommendations to follow. MMODL / IJN: [id number] /
[2017-12-16 21:06] LABS: Glucose,Whole Blood 95 mg/dL (75-99)
[2017-12-16] MEDS: LINAGLIPTIN 5 MG TABLET PO SCH (21:41)
[2017-12-16] MEDS: ATORVASTATIN 10 MG TAB PO SCH (21:41)
[2017-12-16] MEDS: MONTELUKAST 10 MG TAB PO SCH (21:41)
[2017-12-16] MEDS: ASPIRIN 81 MG PO SCH (21:41)
--- NOTE | 2017-12-16 21:55 | P.PN ---
Subjective Progress Note Date: 12/16/17 Principal diagnosis: sepsis 62 year old woman presents to the ER with a several day history of fever and chills. She had been evaluated in the outpatient setting in the clinic and there was concerns to influenza. Influenza testing was negative, despite this she was placed on Tamiflu as well as some cephalexin. Despite that she had no steady improvement in his she had ongoing fevers up to 102 ongoing chills and shaking she presented to the emergency center. She was found to have a temperature 102.9 and evidence of sepsis and Was Admitted. She Has Been Rehydrated She's Been Given Antipyretics Antibiotic Therapy Was Begun. Repeated flu testing was performed and was negative. Tamiflu has been discontinued and antibiotic therapy was started. The patient is complaining of some right flank pain her urines been malodorous but she's had no hematuria. She feels still quite poorly. She has the malaise along with the fever and chill. Which is febrile she feels very poorly. She denying significant cough or sputum production. She has no sinus congestion or rhinorrhea. Denies any abdominal symptoms other than lack of appetite she's had no significant nausea or emesis and no diarrhea. No skin rashes. 12/14/2017 patient is feeling slightly better today. Still having fever with chills. But does not feel as ill as she did yesterday. She able to eat and drink without difficulties does not have a regular appetite. Denies nausea or emesis. With her fall is having some body aches still including to the right flank area. 12/15/2017 reveals the patient is feeling considerably better today. She is with improved fever and discomforts have also improved. Did have fever overnight but this seems to be resolved at this time. 12/16/2017 printed patient feeling even better than the last 24 hours. She is now not had fever since yesterday is not having further chills or rigors. Appetite is adequate. Denies nausea or emesis. Abdominal distention has improved with her bowel movement. The discomforts to her shoulder and back a improved. She is looking forward to being discharged home soon. Objective - Vital Signs Vital signs: Vital Signs Temp 98.4 F 12/16/17 18:46 Pulse 83 12/16/17 18:46 Resp 20 12/16/17 18:46 BP 143/85 12/16/17 18:46 Pulse Ox 95 12/16/17 18:46 Intake & Output 12/16/17 12/16/17 12/17/17 06:59 18:59 06:59 Output Total 576 550 Balance -576 -550 Output: Urine 576 550 Other: # Voids 200 T-max was 101.3 yesterday 97 9 today - Exam 62-year-old woman who is quite uncomfortable with recurrent fever and chills she also has some right flank discomfort HEENT: Anicteric conjunctiva are pink and moist nasal mucosa grossly intact without significant lesions, there is no thrush. Neck: The neck is supple without significant lymphadenopathy or thyromegaly. Lungs: Good bilateral air entry without significant crackles or wheezing. There is no significant bronchial sounds. There is no egophony or dullness. Heart: Regular rate and rhythm with an audible S1-S2, no S3 no S4. There is no significant murmur click or rub, PMI was nondisplaced. Abdomen: Positive bowel sounds soft and nontender without palpable masses or organomegaly. There was no guarding or rebound. There is some right flank tenderness no bruising or ecchymosis seen Extremities: The upper extremities have excellent pulses they are symmetric, no significant petechiae or telangiectasia. No splinter hemorrhages were noted. The lower extremities are free from significant edema. The peripheral pulses were 2+ and symmetric. Neuro: Awake alert oriented to person place and time. There are no acute new gross focal sensory motor deficits. - Labs CBC & Chem 7: 12/16/17 06:37 12/16/17 06:37 Labs: Abnormal Lab Results - Last 24 Hours (Table) 12/16/17 12/16/17 12/16/17 Range/Units 06:22 06:37 06:37 WBC 10.8 H (3.8-10.6) k/uL RBC 3.48 L (3.80-5.40) m/uL Hgb 9.9 L (11.4-16.0) gm/dL Hct 30.8 L (34.0-46.0) % Neutrophils # 8.6 H (1.3-7.7) k/uL Chloride 110 H (98-107) mmol/L Carbon Dioxide 18 L (22-30) mmol/L POC Glucose (mg/dL) 106 H (75-99) mg/dL 12/16/17 12/16/17 Range/Units 11:33 16:59 WBC (3.8-10.6) k/uL RBC (3.80-5.40) m/uL Hgb (11.4-16.0) gm/dL Hct (34.0-46.0) % Neutrophils # (1.3-7.7) k/uL Chloride (98-107) mmol/L Carbon Dioxide (22-30) mmol/L POC Glucose (mg/dL) 111 H 101 H (75-99) mg/dL Microbiology - Last 24 Hours (Table) 12/13/17 12:41 Blood Culture - Preliminary Blood No Growth after 72 hours 12/13/17 12:16 Blood Culture - Preliminary Blood No Growth after 72 hours 12/14/17 11:19 Blood Culture - Preliminary Blood No Growth after 48 hours 12/13/17 00:50 Blood Culture - Preliminary Blood No Growth after 72 hours Assessment and Plan (1) Sepsis Current Visit: Yes Status: Acute Code(s): A41.9 - SEPSIS, UNSPECIFIED ORGANISM SNOMED Code(s): 60743124 (2) Urinary tract infection Current Visit: Yes Status: Acute Code(s): N39.0 - URINARY TRACT INFECTION, SITE NOT SPECIFIED SNOMED Code(s): 52013041 (3) Hypokalemia Current Visit: Yes Status: Acute Code(s): E87.6 - HYPOKALEMIA SNOMED Code( s): 56714823 (4) Pyelonephritis Narrative/Plan: 62-year-old presents to Hospital for evaluation of her high-grade fevers chills or malaise and right flank pain. She was seen in the outpatient setting and was concerned to have influenza although she had negative influenza testing. Despite Tamiflu in addition of cephalexin she did not improve. Because of ongoing fever of 102.9 she presented to the emergency center and has been admitted. With resuscitation and initiation of antibiotic therapy with Rocephin she's feeling somewhat better. A computed tomography scan has been requested to evaluate pyelonephritis as well as any potential obstruction. Cultures are currently in process which would further help direct antibiotic therapy the Rocephin should be adequate given her situation. Pain and fever control seemed to be adequate at this point in time also. No evidence of influenza no Tamiflu as needed. We'll monitor. 12/14/2017 patient feeling slightly better today. She'll is had bouts of fever and chill but less intense and less frequent in the last day. Urine culture does show evidence of gram-negative bacilli we await the final culture results to determine best possible antibiotic therapy to complete her course of treatment for her pyelonephritis. Computed tomography scan does show evidence of multifocal pyelonephritis and concerned potentially decreased renal function. This is discussed with the nursing staff to limit ibuprofen that she is having ensure she is receiving adequate amounts of fluid and make sure monitoring her urinary output to make sure it is adequate. Rocephin will be increased to 2 g a day 1 extra gram tonight and then 2 g each a.m. try to improve renal penetration. Leukocytosis persists as his fever which is not unusual with pyelonephritis. 12/15/2017 reveals patient to be further improved today. Overall fevers are improving although 101.3 yesterday. But today he is certainly showing her to be feeling better. Her fluids or cut back given the fact that she is having some edema and KATHRYN hose will be applied. Patient control seems to be adequate. Urine culture has revealed evidence of E. coli that is fortunately quite susceptible. When she has resolution of her fevers for more than 24 hours. Then can transition her to oral antibiotic therapy with ciprofloxacin 500 mg orally every 12 hours for 14 days of therapy for her complicated pyelonephritis. 12/16/2017 patient is with further improvement and is feeling considerably better today. No further fevers of the day today. Her edema is improved. Her shoulders feeling better. Abdominal distention has resolved. She is doing very well with current antibiotic therapy. She was transitioned to ciprofloxacin 500 mg every 12 hours for 14 days the time of her discharge to complete the treatment for her complicated pyelonephritis. Current Visit: Yes Status: Acute Code(s): N12 - TUBULO-INTERSTITIAL NEPHRITIS, NOT SPCF ACUTE OR CHRONIC SNOMED Code(s): 72374642
[2017-12-17] MEDS: KETOROLAC 30 MG/ML 1 ML VIAL IVP SCH ×3 (00:12→12:14)
[2017-12-17 00:14] VITALS: RESP 18
[2017-12-17] MEDS: LEVOTHYROXINE 137 MCG TAB PO SCH (06:10)
[2017-12-17 06:44] LABS: Basophils % (A) 0 %; Eosinophils # (A) 0.2 k/uL (0-0.7); Eosinophils % (A) 3 %; HCT 30.2 % (34.0-46.0); HGB 9.6 gm/dL (11.4-16.0); Lymphocytes # (A) 1.2 k/uL (1.0-4.8); Lymphocytes % (A) 14 %; MCH 27.9 pg (25.0-35.0); MCHC 31.7 g/dL (31.0-37.0); MCV 87.9 fL (80.0-100.0); Mean Platelet Volume 7.3; Monocytes # (A) 0.5 k/uL (0-1.0); Monocytes % (A) 6 %; Neutrophils # (A) 6.8 k/uL (1.3-7.7); Neutrophils % (A) 76 %; Platelet Count 503 k/uL (150-450); RBC 3.44 m/uL (3.80-5.40); RDW 13.8 % (11.5-15.5)
[2017-12-17 07:01] LABS: Anion Gap 9 mmol/L; Blood Urea Nitrogen 18 mg/dL (7-17); Calcium 9.3 mg/dL (8.4-10.2); Carbon Dioxide 18 mmol/L (22-30); Chloride 109 mmol/L (98-107); Glucose 88 mg/dL (74-99); Potassium 4.6 mmol/L (3.5-5.1); Sodium 136 mmol/L (137-145)
[2017-12-17 07:09] LABS: Glucose,Whole Blood 101 mg/dL (75-99)
[2017-12-17] MEDS: metFORMIN 500 MG TAB PO SCH (07:15)
[2017-12-17] MEDS: INSULIN ASPART 100 UNIT/ML 1 ML 10 ML VIAL SQ SCH ×2 (07:15→11:22)
[2017-12-17] MEDS: COLESEVELAM 625 MG TAB PO SCH (07:16)
[2017-12-17] MEDS: OMEGA 3 1200MG PO SCH ×2 (07:18→08:21)
[2017-12-17] MEDS: 0.9% NACL WITH KCL 20 MEQ/L 1,000 ML IV SCH ×2 (07:49→07:50)
[2017-12-17] MEDS: SYMBICORT 80-4.5 MCG INHALER INHALATION SCH (08:25)
[2017-12-17] MEDS: cefTRIAXone IN SWFI 2,000 MG/20 ML SYRINGE IVP SCH (08:27)
[2017-12-17] MEDS: PANTOPRAZOLE 40 MG/10 ML VIAL IVP SCH (08:28)
[2017-12-17] MEDS: HEPARIN SODIUM,PORCINE 5,000 UNIT/ML 1 ML VIAL SQ SCH (08:28)
[2017-12-17] MEDS: LISINOPRIL-HCTZ 20-25 MG 1 EACH TAB PO SCH (08:29)
[2017-12-17 08:42] VITALS: BP 151/93; PULSE 80; TEMP 98
[2017-12-17 11:03] LABS: Glucose,Whole Blood 90 mg/dL (75-99)
--- NOTE | 2017-12-17 22:48 | P.PN ---
Subjective Progress Note Date: 12/17/17 Principal diagnosis: sepsis 62 year old woman presents to the ER with a several day history of fever and chills. She had been evaluated in the outpatient setting in the clinic and there was concerns to influenza. Influenza testing was negative, despite this she was placed on Tamiflu as well as some cephalexin. Despite that she had no steady improvement in his she had ongoing fevers up to 102 ongoing chills and shaking she presented to the emergency center. She was found to have a temperature 102.9 and evidence of sepsis and Was Admitted. She Has Been Rehydrated She's Been Given Antipyretics Antibiotic Therapy Was Begun. Repeated flu testing was performed and was negative. Tamiflu has been discontinued and antibiotic therapy was started. The patient is complaining of some right flank pain her urines been malodorous but she's had no hematuria. She feels still quite poorly. She has the malaise along with the fever and chill. Which is febrile she feels very poorly. She denying significant cough or sputum production. She has no sinus congestion or rhinorrhea. Denies any abdominal symptoms other than lack of appetite she's had no significant nausea or emesis and no diarrhea. No skin rashes. 12/14/2017 patient is feeling slightly better today. Still having fever with chills. But does not feel as ill as she did yesterday. She able to eat and drink without difficulties does not have a regular appetite. Denies nausea or emesis. With her fall is having some body aches still including to the right flank area. 12/15/2017 reveals the patient is feeling considerably better today. She is with improved fever and discomforts have also improved. Did have fever overnight but this seems to be resolved at this time. 12/16/2017 printed patient feeling even better than the last 24 hours. She is now not had fever since yesterday is not having further chills or rigors. Appetite is adequate. Denies nausea or emesis. Abdominal distention has improved with her bowel movement. The discomforts to her shoulder and back a improved. She is looking forward to being discharged home soon 12/17/2017 patient now feels quite well. She's had good recovery of her high- grade fevers and chills. Abdomen is feeling well. No flank pain. She's not had a fever now for a day and is ready for discharge to home. Objective - Vital Signs Vital signs: Vital Signs Temp 98.0 F 12/17/17 08:10 Pulse 80 12/17/17 08:10 Resp 18 12/17/17 08:10 BP 151/93 12/17/17 08:10 Pulse Ox 96 12/17/17 08:10 Intake & Output 12/17/17 12/17/17 12/18/17 06:59 18:59 06:59 Output Total 1200 Balance -1200 Output: Urine 1200 - Exam 62-year-old woman who is quite uncomfortable with recurrent fever and chills she also has some right flank discomfort HEENT: Anicteric conjunctiva are pink and moist nasal mucosa grossly intact without significant lesions, there is no thrush. Neck: The neck is supple without significant lymphadenopathy or thyromegaly. Lungs: Good bilateral air entry without significant crackles or wheezing. There is no significant bronchial sounds. There is no egophony or dullness. Heart: Regular rate and rhythm with an audible S1-S2, no S3 no S4. There is no significant murmur click or rub, PMI was nondisplaced. Abdomen: Positive bowel sounds soft and nontender without palpable masses or organomegaly. There was no guarding or rebound. There is some right flank tenderness no bruising or ecchymosis seen Extremities: The upper extremities have excellent pulses they are symmetric, no significant petechiae or telangiectasia. No splinter hemorrhages were noted. The lower extremities are free from significant edema. The peripheral pulses were 2+ and symmetric. Neuro: Awake alert oriented to person place and time. There are no acute new gross focal sensory motor deficits. - Labs CBC & Chem 7: 12/17/17 06:31 12/17/17 06:31 Labs: Abnormal Lab Results - Last 24 Hours (Table) 12/17/17 12/17/17 12/17/17 Range/Units 06:31 06:31 07:07 RBC 3.44 L (3.80-5.40) m/uL Hgb 9.6 L (11.4-16.0) gm/dL Hct 30.2 L (34.0-46.0) % Plt Count 503 H (150-450) k/uL Sodium 136 L (137-145) mmol/L Chloride 109 H (98-107) mmol/L Carbon Dioxide 18 L (22-30) mmol/L BUN 18 H (7-17) mg/dL POC Glucose (mg/dL) 101 H (75-99) mg/dL Microbiology - Last 24 Hours (Table) 12/13/17 12:41 Blood Culture - Preliminary Blood No Growth after 96 hours 12/13/17 12:16 Blood Culture - Preliminary Blood No Growth after 96 hours 12/14/17 11:19 Blood Culture - Preliminary Blood No Growth after 72 hours 12/13/17 00:50 Blood Culture - Preliminary Blood No Growth after 96 hours Laboratory Results WBC 9.0 k/uL (3.8-10.6) 12/17/17 06:31 RBC 3.44 m/uL (3.80-5.40) L 12/17/17 06:31 Hgb 9.6 gm/dL (11.4-16.0) L 12/17/17 06:31 Hct 30.2 % (34.0-46.0) L 12/17/17 06:31 MCV 87.9 fL (80.0-100.0) 12/17/17 06:31 MCH 27.9 pg (25.0-35.0) 12/17/17 06:31 MCHC 31.7 g/dL (31.0-37.0) 12/17/17 06:31 RDW 13.8 % (11.5-15.5) 12/17/17 06:31 Plt Count 503 k/uL (150-450) H 12/17/17 06:31 Neutrophils % 76 % 12/17/17 06:31 Lymphocytes % 14 % 12/17/17 06:31 Monocytes % 6 % 12/17/17 06:31 Eosinophils % 3 % 12/17/17 06:31 Basophils % 0 % 12/17/17 06:31 Neutrophils # 6.8 k/uL (1.3-7.7) 12/17/17 06:31 Lymphocytes # 1.2 k/uL (1.0-4.8) 12/17/17 06:31 Monocytes # 0.5 k/uL (0-1.0) 12/17/17 06:31 Eosinophils # 0.2 k/uL (0-0.7) 12/17/17 06:31 Basophils # 0.0 k/uL (0-0.2) 12/17/17 06:31 ESR 59 mm/hr (0-20) H 12/13/17 12:41 PT 10.7 sec (9.0-12.0) 12/13/17 00:50 INR 1.1 (<1.2) 12/13/17 00:50 APTT 25.7 sec (22.0-30.0) 12/13/17 00:50 Sodium 136 mmol/L (137-145) L 12/17/17 06:31 Potassium 4.6 mmol/L (3.5-5.1) 12/17/17 06:31 Chloride 109 mmol/L (98-107) H 12/17/17 06:31 Carbon Dioxide 18 mmol/L (22-30) L 12/17/17 06:31 Anion Gap 9 mmol/L 12/17/17 06:31 BUN 18 mg/dL (7-17) H 12/17/17 06:31 Creatinine 0.77 mg/dL (0.52-1.04) 12/17/17 06:31 Est GFR (CKD-EPI)AfAm >90 (>60 ml/min/1.73 sqM) 12/17/17 06:31 Est GFR (CKD-EPI)NonAf 84 (>60 ml/min/1.73 sqM) 12/17/17 06:31 Glucose 88 mg/dL (74-99) 12/17/17 06:31 POC Glucose (mg/dL) 90 mg/dL (75-99) 12/17/17 11:02 POC Glu Senior Foreman ID 12/17/17 11:[address] Glu mg/dL 117 12/13/17 12:16 Hemoglobin A1c 5.7 % (4.0-6.0) 12/13/17 12:16 Lactic Ac Sepsis Rflx Y 12/14/17 11:44 Plasma Lactic Acid [place] 1.2 mmol/L (0.7-2.0) 12/14/17 15:23 Calcium 9.3 mg/dL (8.4-10.2) 12/17/17 06:31 Magnesium 1.9 mg/dL (1.6-2.3) 12/14/17 06:53 Total Bilirubin 0.8 mg/dL (0.2-1.3) 12/13/17 00:50 AST 24 U/L (14-36) 12/13/17 00:50 ALT 37 U/L (9-52) 12/13/17 00:50 Alkaline Phosphatase 108 U/L (38-126) 12/13/17 00:50 C-Reactive Protein 344.7 mg/L (<10.0) H 12/13/17 12:41 Total Protein 6.1 g/dL (6.3-8.2) L 12/13/17 00:50 Albumin 3.4 g/dL (3.5-5.0) L 12/13/17 00:50 Urine Color Yellow 12/13/17 00:50 Urine Appearance Cloudy (Clear) H 12/13/17 00:50 Urine pH 6.0 (5.0-8.0) 12/13/17 00:50 Ur Specific [place] 1.020 (1.001-1.035) 12/13/17 00:50 Urine Protein 1+ (Negative) H 12/13/17 00:50 Urine Glucose (UA) Negative (Negative) 12/13/17 00:50 Urine Ketones Negative (Negative) 12/13/17 00:50 Urine Blood Trace (Negative) H 12/13/17 00:50 Urine Nitrite Positive (Negative) H 12/13/17 00:50 Urine Bilirubin Negative (Negative) 12/13/17 00:50 Urine Urobilinogen <2.0 mg/dL (<2.0) 12/13/17 00:50 Ur Leukocyte Esterase Large (Negative) H 12/13/17 00:50 Urine RBC 9 /hpf (0-5) H 12/13/17 00:50 Urine WBC 121 /hpf (0-5) H 12/13/17 00:50 Urine WBC Clumps Few /hpf (None) H 12/13/17 00:50 Ur Squamous Epith Cells 3 /hpf (0-4) 12/13/17 00:50 Urine Bacteria Many /hpf (None) H 12/13/17 00:50 Hyaline Casts 4 /lpf (0-2) H 12/13/17 00:50 Urine Mucus Moderate /hpf (None) H 12/13/17 00:50 Influenza Type A RNA Not Detected (Not Detectd) 12/13/17 00:50 Influenza Type B (PCR) Not Detected (Not Detectd) 12/13/17 00:50 Group A Strep Rapid Negative (Negative) 12/13/17 00:50 Microbiology 12/13/17 12:41 Blood Blood Culture - Preliminary No Growth after 96 hours 12/13/17 12:16 Blood Blood Culture - Preliminary No Growth after 96 hours 12/14/17 11:19 Blood Blood Culture - Preliminary No Growth after 72 hours 12/13/17 00:50 Blood Blood Culture - Preliminary No Growth after 96 hours 12/13/17 00:50 Throat Group A Strep Throat Culture - Final 12/13/17 00:50 Urine,Voided Urine Culture - Final Escherichia coli Assessment and Plan (1) Sepsis Status: Acute Code(s): A41.9 - SEPSIS, UNSPECIFIED ORGANISM SNOMED Code(s): 91923258 (2) Urinary tract infection Status: Acute Code(s): N39.0 - URINARY TRACT INFECTION, SITE NOT SPECIFIED SNOMED Code(s): 09128387 (3) Hypokalemia Status: Acute Code(s): E87.6 - HYPOKALEMIA SNOMED Code(s): 75670461 (4) Pyelonephritis Narrative/Plan: 62-year-old presents to Hospital for evaluation of her high-grade fevers chills or malaise and right flank pain. She was seen in the outpatient setting and was concerned to have influenza although she had negative influenza testing. Despite Tamiflu in addition of cephalexin she did not improve. Because of ongoing fever of 102.9 she presented to the emergency center and has been admitted. With resuscitation and initiation of antibiotic therapy with Rocephin she's feeling somewhat better. A computed tomography scan has been requested to evaluate pyelonephritis as well as any potential obstruction. Cultures are currently in process which would further help direct antibiotic therapy the Rocephin should be adequate given her situation. Pain and fever control seemed to be adequate at this point in time also. No evidence of influenza no Tamiflu as needed. We'll monitor. 12/14/2017 patient feeling slightly better today. She'll is had bouts of fever and chill but less intense and less frequent in the last day. Urine culture does show evidence of gram-negative bacilli we await the final culture results to determine best possible antibiotic therapy to complete her course of treatment for her pyelonephritis. Computed tomography scan does show evidence of multifocal pyelonephritis and concerned potentially decreased renal function. This is discussed with the nursing staff to limit ibuprofen that she is having ensure she is receiving adequate amounts of fluid and make sure monitoring her urinary output to make sure it is adequate. Rocephin will be increased to 2 g a day 1 extra gram tonight and then 2 g each a.m. try to improve renal penetration. Leukocytosis persists as his fever which is not unusual with pyelonephritis. 12/15/2017 reveals patient to be further improved today. Overall fevers are improving although 101.3 yesterday. But today he is certainly showing her to be feeling better. Her fluids or cut back given the fact that she is having some edema and KATHRYN hose will be applied. Patient control seems to be adequate. Urine culture has revealed evidence of E. coli that is fortunately quite susceptible. When she has resolution of her fevers for more than 24 hours. Then can transition her to oral antibiotic therapy with ciprofloxacin 500 mg orally every 12 hours for 14 days of therapy for her complicated pyelonephritis. 12/16/2017 patient is with further improvement and is feeling considerably better today. No further fevers of the day today. Her edema is improved. Her shoulders feeling better. Abdominal distention has resolved. She is doing very well with current antibiotic therapy. She was transitioned to ciprofloxacin 500 mg every 12 hours for 14 days the time of her discharge to complete the treatment for her complicated pyelonephritis. 12/17/2017 patient is ready for discharge home. She is feeling quite well today. She's having no fevers and has not had a fever for 24 hours. She is on oral ciprofloxacin 500 mg every 12 hours will take 14 days for her complicated pyelonephritis. She may contact the office if she has any further needs. Status: Acute Code(s): N12 - TUBULO-INTERSTITIAL NEPHRITIS, NOT SPCF ACUTE OR CHRONIC SNOMED Code(s): 40124184
--- NOTE | 2017-12-18 07:27 | DS ---
DISCHARGE SUMMARY DATE OF SERVICE: 12/18/2017 FINAL DIAGNOSES: 1. Fever, rigors, chills, possible acute urinary tract infection with Escherichia coli and pyelonephritis with sepsis present on admission. 2. Hypokalemia. 3. Hypomagnesemia. 4. Increased WBC. 5. Obesity with body mass index of 32.1. 6. Diabetes mellitus type 2. 7. History of asthma. DISCHARGE DISPOSITION: The patient will be discharged in a stable condition with guarded prognosis. HISTORY OF PRESENT ILLNESS: This is a 62-year-old woman with a past medical history of multiple medical problems admitted with UTI with possible pyelonephritis. Patient was given IV antibiotics. Dr. Mccormack saw the patient. On exam, vitals are stable. CARDIOVASCULAR SYSTEM: S1, S2. ABDOMEN: Soft. NERVOUS SYSTEM: No focal deficits. 1. Diet is cardiac. 2. Activity limited until followup. 3. Follow up with Dr. Vidal in 2-3 days. 4. Follow up with Infectious Disease as recommended. MEDICATIONS ARE: 1. ProAir HFA 1-2 puffs q.6 p.r.n. 2. Xanax 0.5 t.i.d. p.r.n. 3. Aspirin 81 mg q.h.s. 4. Lipitor 10 mg q.h.s. 5. Symbicort 80/4.5 two puffs b.i.d. 6. Cipro 500 mg p.o. b.i.d. for [address] Mccormack. 7. Welchol 1870 mg p.o. b.i.d. 8. Synthroid 135 mcg p.o. q.a.m. 10.Glucophage 1000 mg p.o. b.i.d. 11.Singular 10 mg q.h.s. 12.[place]-3 fatty acids 1200 mg p.o. b.i.d. 13.Prilosec 20 mg b.i.d. 14.Januvia 100 mg p.o. q.h.s. Once again, the patient will be discharged in a stable condition with guarded prognosis. MMODL / IJN: [id number] / MTDD
== END 2017-12-17 12:20 | disposition home or self-care (01) | DRG 872 ==
LOC: EC 23:46 → 3SUR 12-13 02:32 → 6PED 12-13 08:34
PROVIDERS: ADMIT Hospitalist; ATTEND Hospitalist
DX: A41.51 Sepsis due to Escherichia coli [E. coli] (principal); E83.42 Hypomagnesemia; N10 Acute pyelonephritis; E11.9 Type 2 diabetes mellitus without complications; E03.9 Hypothyroidism, unspecified; E87.6 Hypokalemia; E66.9 Obesity, unspecified; Z68.32 Body mass index [BMI] 32.0-32.9, adult; J45.909 Unspecified asthma, uncomplicated; I10 Essential (primary) hypertension; E78.5 Hyperlipidemia, unspecified; M19.90 Unspecified osteoarthritis, unspecified site; F41.9 Anxiety disorder, unspecified; Z96.653 Presence of artificial knee joint, bilateral; Z87.891 Personal history of nicotine dependence; Z82.0 Family history of epilepsy and other diseases of the nervous system; Z83.3 Family history of diabetes mellitus; Z79.899 Other long term (current) drug therapy; Z88.8 Allergy status to other drugs, medicaments and biological substances; Z91.018 Allergy to other foods; Z79.84 Long term (current) use of oral hypoglycemic drugs; Z87.19 Personal history of other diseases of the digestive system; Z90.710 Acquired absence of both cervix and uterus; Z79.82 Long term (current) use of aspirin; W10.9XXA Fall (on) (from) unspecified stairs and steps, initial encounter
CPT/HCPCS: 36415; 71046; 74177; 80048; 80053; 81001; 83036; 83605; 83735; 84132; 85025; 85610; 85652; 85730; 86140; 87040; 87077; 87081; 87086; 87186; 87430; 87502; 94640; 96361; 96365; 96375; 99285

== ENCOUNTER → 2017-12-19 | Outpatient (CLI) | payer BC ==
[2017-12-19 16:16] LABS: Basophils % (A) 0 %; Eosinophils # (A) 0.2 k/uL (0-0.7); Eosinophils % (A) 1 %; HCT 33.5 % (34.0-46.0); HGB 10.4 gm/dL (11.4-16.0); Lymphocytes # (A) 1.4 k/uL (1.0-4.8); Lymphocytes % (A) 14 %; MCH 27.1 pg (25.0-35.0); MCHC 30.9 g/dL (31.0-37.0); MCV 87.6 fL (80.0-100.0); Mean Platelet Volume 6.9; Monocytes # (A) 0.5 k/uL (0-1.0); Monocytes % (A) 4 %; Neutrophils # (A) 8.2 k/uL (1.3-7.7); Neutrophils % (A) 79 %; Platelet Count 776 k/uL (150-450); RBC 3.82 m/uL (3.80-5.40); RDW 14.5 % (11.5-15.5); WBC 10.4 k/uL (3.8-10.6)
[2017-12-19 16:22] LABS: Anion Gap 10 mmol/L; Blood Urea Nitrogen 9 mg/dL (7-17); Calcium 9.8 mg/dL (8.4-10.2); Carbon Dioxide 24 mmol/L (22-30); Chloride 106 mmol/L (98-107); Glucose 97 mg/dL (74-99); Potassium 4.2 mmol/L (3.5-5.1); Sodium 140 mmol/L (137-145)
== END ==
LOC: LABWHC1 15:37
PROVIDERS: ATTEND Nurse Practitioner
DX: N10 Acute pyelonephritis (principal); A41.9 Sepsis, unspecified organism
CPT/HCPCS: 36415; 80048; 85025

== ENCOUNTER → 2018-03-14 | Outpatient (CLI) | payer BC ==
--- NOTE | 2018-03-17 15:13 | MM ---
Reason for exam: screening (asymptomatic). Last mammogram was performed 1 year and 1 month ago. History: Patient is postmenopausal. Family history of breast cancer in paternal grandmother at age 70 and breast cancer in maternal aunt at age 40. Physical Findings: A clinical breast exam by your physician is recommended on an annual basis and results should be correlated with mammographic findings. MG Screening Mammo w CAD Bilateral CC and MLO view(s) were taken. Prior study comparison: February 21, 2017, bilateral MG screening mammo w CAD. February 21, 2016, bilateral MG 3d screening mammo w/cad. There are scattered fibroglandular densities. Subtle asymmetric density posterior central left MLO view is unchanged from 2017 and has no correlate on the CC view. No significant changes when compared with prior studies. ASSESSMENT: Negative, BI-RAD 1 RECOMMENDATION: Routine screening mammogram of both breasts in 1 year.
== END | disposition home or self-care (01) ==
LOC: RADMAMWWP 10:43
PROVIDERS: ATTEND Family Medicine
DX: Z12.31 Encounter for screening mammogram for malignant neoplasm of breast (principal)
CPT/HCPCS: 77067

== ENCOUNTER → 2019-04-03 | Outpatient (CLI) | payer BC ==
--- NOTE | 2019-04-06 10:18 | MM ---
Reason for exam: screening (asymptomatic). Last mammogram was performed 1 year and 1 month ago. History: Patient is postmenopausal. Family history of breast cancer in paternal grandmother at age 70 and breast cancer in maternal aunt at age 40. Physical Findings: A clinical breast exam by your physician is recommended on an annual basis and results should be correlated with mammographic findings. MG Screening Mammo w CAD Bilateral CC and MLO view(s) were taken. Prior study comparison: March 14, 2018, bilateral MG screening mammo w CAD. February 21, 2017, bilateral MG screening mammo w CAD. The breast tissue is almost entirely fat. There is no discrete abnormality. No significant changes when compared with prior studies. ASSESSMENT: Negative, BI-RAD 1 RECOMMENDATION: Routine screening mammogram of both breasts in 1 year.
== END | disposition home or self-care (01) ==
LOC: RADMAMWWP 10:43
PROVIDERS: ATTEND Family Medicine
DX: Z12.31 Encounter for screening mammogram for malignant neoplasm of breast (principal)
CPT/HCPCS: 77067

== ENCOUNTER → 2020-05-03 | Outpatient (CLI) | payer BC ==
--- NOTE | 2020-05-04 13:07 | MM ---
Reason for exam: screening (asymptomatic). Last mammogram was performed 1 year and 1 month ago. History: Patient is postmenopausal. Family history of breast cancer in paternal grandmother at age 70 and breast cancer in maternal aunt at age 40. Physical Findings: A clinical breast exam by your physician is recommended on an annual basis and results should be correlated with mammographic findings. MG Screening Mammo w CAD Bilateral CC and MLO view(s) were taken. Prior study comparison: April 03, 2019, bilateral MG screening mammo w CAD. March 14, 2018, bilateral MG screening mammo w CAD. There are scattered fibroglandular densities. There is chronic nodularity in the left breast. No significant changes when compared with prior studies. ASSESSMENT: Benign, BI-RAD 2 RECOMMENDATION: Routine screening mammogram of both breasts in 1 year.
== END | disposition home or self-care (01) ==
LOC: RADMAMWWP 10:52
PROVIDERS: ATTEND Family Medicine
DX: Z12.31 Encounter for screening mammogram for malignant neoplasm of breast (principal)
CPT/HCPCS: 77067

== ENCOUNTER → 2020-06-07 | Outpatient (CLI) | payer BC ==
--- NOTE | 2020-06-07 17:12 | XR ---
EXAMINATION TYPE: XR toes RT DATE OF EXAM: 06/07/2020 CLINICAL HISTORY: L 98.9. Laceration/wound to anterior aspect of great toe. No known injury. TECHNIQUE: Frontal, lateral, and oblique coned-down images of the right great toe are obtained. COMPARISON: None FINDINGS: There is no acute fracture/dislocation evident in the right great toe. No evidence of osse ous erosion or periosteal reaction. There is degenerative spurring and subchondral cystic change of t he lateral aspect of the great toe interphalangeal joint. The overlying soft tissue appears unremarka ble. IMPRESSION: No significant radiographic soft tissue abnormality. No evidence of osteomyelitis.
== END | disposition home or self-care (01) ==
LOC: RAD 16:40
PROVIDERS: ATTEND Family Medicine
DX: L98.9 Disorder of the skin and subcutaneous tissue, unspecified (principal)

== ENCOUNTER → 2021-02-06 | Outpatient (CLI) | payer BC ==
[2021-02-06 19:42] LABS: African American GFR (CKD) 90.3 (60.0-200.0); Anion Gap 3.6 mmol/L (4.00-12.00); Calcium 10.3 mg/dL (8.7-10.3); Carbon Dioxide 27.4 mmol/L (21.6-31.8); Non-African American GFR(CKD) 77.9 (60.0-200.0)
[2021-02-06 19:50] LABS: T4, Free (Free Thyroxine) 1.4 ng/dL (0.80-1.80)
== END | disposition home or self-care (01) ==
LOC: LABWHC1 12:29
PROVIDERS: ATTEND Family Medicine
DX: E03.9 Hypothyroidism, unspecified (principal); E83.52 Hypercalcemia
CPT/HCPCS: 36415; 80048; 82306; 83970; 84439; 84443

== ENCOUNTER → 2021-05-25 | Outpatient (CLI) | payer BC ==
--- NOTE | 2021-05-29 11:31 | MM ---
Reason for exam: screening (asymptomatic). Last mammogram was performed 1 year and 1 month ago. History: Patient is postmenopausal. Family history of breast cancer in paternal grandmother at age 70 and breast cancer in maternal aunt at age 40. Physical Findings: A clinical breast exam by your physician is recommended on an annual basis and results should be correlated with mammographic findings. MG Screening Mammo w CAD Bilateral CC and MLO view(s) were taken. Prior study comparison: May 03, 2020, bilateral MG screening mammo w CAD. April 03, 2019, bilateral MG screening mammo w CAD. March 14, 2018, bilateral MG screening mammo w CAD. There are scattered fibroglandular densities. There are benign appearing round calcifications bilaterally. There is no discrete abnormality. ASSESSMENT: Benign, BI-RAD 2 RECOMMENDATION: Routine screening mammogram of both breasts in 1 year.
== END | disposition home or self-care (01) ==
LOC: RADMAMWWP 11:06
PROVIDERS: ATTEND Family Medicine
DX: Z12.31 Encounter for screening mammogram for malignant neoplasm of breast (principal); Z80.3 Family history of malignant neoplasm of breast; Z78.0 Asymptomatic menopausal state
CPT/HCPCS: 77067

== ENCOUNTER 2021-12-04 18:19 | Emergency (ER) | payer BC, MEDICARE ==
[2021-12-04 18:24] VITALS: RESP 18; TEMP 97.6
--- NOTE | 2021-12-04 18:36 | ED ---
General Adult HPI - General Chief complaint: Arrhythmia/Palpitations Stated complaint: Heart Rate is all over Time Seen by Provider: 12/04/21 18:26 Source: patient, RN notes reviewed Mode of arrival: ambulatory Limitations: no limitations - History of Present Illness Initial comments: Patient is a pleasant 66-year-old female presenting to the emergency Department with concern for elevated heart rate. Patient was at dinner and felt drowsy. Patient checked for watch which stated that her heart rate was elevated at 120. Patient states this did seem to vary between 104 and 120. Patient never had palpitations. No chest pain. Patient questions if she had mild shortness of breath however that is fairly normal for her secondary to her history of asthma. No spinning sensation or weakness or confusion. No history of similar symptoms previously. - Related Data Home Medications Medication Instructions Recorded Confirmed ALPRAZolam [Xanax] 0.25 mg PO DAILY PRN 12/13/17 12/04/21 Albuterol Sulfate [Proair Hfa] 2 puff INHALATION RT-Q4H PRN 12/13/17 12/04/21 Aspirin [Adult Low Dose Aspirin EC] 81 mg PO HS 12/13/17 12/04/21 Atorvastatin [Lipitor] 10 mg PO HS 12/13/17 12/04/21 Budesonide/Formoterol Fumarate 2 puff INHALATION RT-BID 12/13/17 12/04/21 [Symbicort 80-4.5 Mcg Inhaler] Colesevelam [Welchol] 1,875 mg PO BID 12/13/17 12/04/21 Levothyroxine Sodium [Synthroid] 137 mcg PO DAILY 12/13/17 12/04/21 Lisinopril-Hctz 20-25 mg 1 tab PO DAILY 12/13/17 12/04/21 [Zestoretic 20-25] Montelukast [Singulair] 10 mg PO HS 12/13/17 12/04/21 [place]-3 Fatty Acids/Fish Oil [Fish 2 cap PO BID 12/13/17 12/04/21 Oil 1,000 mg Softgel] metFORMIN HCL [Glucophage] 1,000 mg PO BID 12/13/17 12/04/21 sitaGLIPtin [Januvia] 100 mg PO DAILY 12/13/17 12/04/21 Albuterol Nebulized [Ventolin 2.5 mg INHALATION RT-Q6H PRN 12/04/21 12/04/21 Nebulized] Ascorbic Acid [Vitamin C] 500 mg PO HS 12/04/21 12/04/21 Ezetimibe [Zetia] 10 mg PO HS 12/04/21 12/04/21 Fluticasone Nasal [place] [Flonase 1 spray EA NOSTRIL DAILY PRN 12/04/21 12/04/21 Nasal [place]] Levocetirizine Dihydrochloride 5 mg PO HS 12/04/21 12/04/21 [Xyzal] Multivitamins, Thera [Multivitamin 1 tab PO DAILY 12/04/21 12/04/21 (formulary)] Allergies Allergy/AdvReac Type Severity Reaction Status Date / Time pioglitazone [From Actos] Allergy Severe lab Verified 12/04/21 19:10 reaction dapagliflozin [From Farxiga] Allergy Chest Pain Verified 12/04/21 19:10 fenofibrate AdvReac Severe muscle Verified 12/04/21 19:10 aches [place] Allergy Severe Swelling Uncoded 12/04/21 18:22 Review of Systems ROS Statement: Those systems with pertinent positive or pertinent negative responses have been documented in the HPI. ROS Other: All systems not noted in ROS Statement are negative. Constitutional: Denies: fever Eyes: Denies: eye pain ENT: Denies: ear pain Respiratory: Reports: as per HPI. Denies: cough Cardiovascular: Denies: chest pain, palpitations Endocrine: Denies: fatigue Gastrointestinal: Denies: abdominal pain Genitourinary: Denies: dysuria Musculoskeletal: Denies: back pain Skin: Denies: rash Neurological: Denies: weakness Past Medical History Past Medical History: Asthma, Diabetes Mellitus, Hyperlipidemia, Hypertension, Thyroid Disorder History of Any Multi-Drug Resistant Organisms: None Reported Past Surgical History: Section, Hernia Repair, Hysterectomy, Joint Replacement, Orthopedic Surgery Additional Past Surgical History / Comment(s): bilateral knee replacement, left knee scope Past Anesthesia/Blood Transfusion Reactions: No Reported Reaction Past Psychological History: Anxiety Smoking Status: Never smoker Past Alcohol Use History: None Reported Past Drug Use History: None Reported - Past Family History Mother Family Medical History: CVA/TIA, Diabetes Mellitus, Seizure Disorder Additional Family Medical History / Comment(s): carotid artery surgery, had s eiregina a week later . Father Additional Family Medical History / Comment(s): spenic anerysm that ruptured, endocarditis General Exam Limitations: no limitations General appearance: alert, in no apparent distress Head exam: Present: normocephalic Eye exam: Present: normal appearance ENT exam: Present: normal oropharynx Neck exam: Present: normal inspection Respiratory exam: Present: normal lung sounds bilaterally Cardiovascular Exam: Present: normal rhythm, tachycardia, normal heart sounds Expanded Peripheral pulses: 2+: Radial (R), Radial (L), Posterior Tibialis (R), Posterior Tibialis (L) GI/Abdominal exam: Present: soft. Absent: tenderness Extremities exam: Present: normal inspection. Absent: pedal edema, calf tenderness Neurological exam: Present: alert Psychiatric exam: Present: normal affect, normal mood Skin exam: Present: normal color Course Vital Signs 12/04/21 12/04/21 18:22 19:16 Temperature 97.6 F Pulse Rate 138 H 110 H Respiratory 18 Rate Blood Pressure 164/84 O2 Sat by Pulse 97 Oximetry EKG Findings - EKG Comments: EKG Findings:: Sinus tachycardia 110. MS 188. QRS 75. QT 306. QTc 371. Normal axis. Normal QRS. No acute ST change. Medical Decision Making - Medical Decision Making Patient reevaluated and resting comfortably in bed. Patient symptom-free at this time. Heart rate. Normal sinus rhythm on the monitor. Patient and family updated on results and need for close follow-up and further testing. - Lab Data Result diagrams: 12/04/21 18:45 12/04/21 18:45 Lab Results 12/04/21 12/04/21 12/04/21 Range/Units 18:45 18:45 18:45 WBC 11.4 H (3.8-10.6) k/uL RBC 5.09 (3.80-5.40) m/uL Hgb 14.9 (11.4-16.0) gm/dL Hct 45.6 (34.0-46.0) % MCV 89.5 (80.0-100.0) fL MCH 29.3 (25.0-35.0) pg MCHC 32.7 (31.0-37.0) g/dL RDW 12.6 (11.5-15.5) % Plt Count 470 H (150-450) k/uL MPV 6.7 Neutrophils % 62 % Lymphocytes % 27 % Monocytes % 5 % Eosinophils % 4 % Basophils % 1 % Neutrophils # 7.0 (1.3-7.7) k/uL Lymphocytes # 3.1 (1.0-4.8) k/uL Monocytes # 0.6 (0-1.0) k/uL Eosinophils # 0.4 (0-0.7) k/uL Basophils # 0.1 (0-0.2) k/uL PT 9.7 (9.0-12.0) sec INR 0.9 (<1.2) APTT 25.5 (22.0-30.0) sec D-Dimer 0.34 (<0.60) mg/L FEU Sodium 138 (137-145) mmol/L Potassium 4.5 (3.5-5.1) mmol/L Chloride 106 (98-107) mmol/L Carbon Dioxide 23 (22-30) mmol/L Anion Gap 9 mmol/L BUN 19 H (7-17) mg/dL Creatinine 0.86 (0.52-1.04) mg/dL Est GFR (CKD-EPI)AfAm 83 (>60 ml/min/1.73 sqM) Est GFR (CKD-EPI)NonAf 72 (>60 ml/min/1.73 sqM) Glucose 94 (74-99) mg/dL Calcium 10.6 H (8.4-10.2) mg/dL Magnesium 2.0 (1.6-2.3) mg/dL Total Bilirubin 0.4 (0.2-1.3) mg/dL AST 31 (14-36) U/L ALT 40 H (4-34) U/L Alkaline Phosphatase 108 (38-126) U/L Troponin I (0.000-0.034) ng/mL Total Protein 7.8 (6.3-8.2) g/dL Albumin 4.6 (3.5-5.0) g/dL TSH 2.120 (0.465-4.680) mIU/L Free T4 1.43 (0.78-2.19) ng/dL Free T3 pg/mL 3.3 (2.8-5.3) pg/ml 12/04/21 Range/Units 18:45 WBC (3.8-10.6) k/uL RBC (3.80-5.40) m/uL Hgb (11.4-16.0) gm/dL Hct (34.0-46.0) % MCV (80.0-100.0) fL MCH (25.0-35.0) pg MCHC (31.0-37.0) g/dL RDW (11.5-15.5) % Plt Count (150-450) k/uL MPV Neutrophils % % Lymphocytes % % Monocytes % % Eosinophils % % Basophils % % Neutrophils # (1.3-7.7) k/uL Lymphocytes # (1.0-4.8) k/uL Monocytes # (0-1.0) k/uL Eosinophils # (0-0.7) k/uL Basophils # (0-0.2) k/uL PT (9.0-12.0) sec INR (<1.2) APTT (22.0-30.0) sec D-Dimer (<0.60) mg/L FEU Sodium (137-145) mmol/L Potassium (3.5-5.1) mmol/L Chloride (98-107) mmol/L Carbon Dioxide (22-30) mmol/L Anion Gap mmol/L BUN (7-17) mg/dL Creatinine (0.52-1.04) mg/dL Est GFR (CKD-EPI)AfAm (>60 ml/min/1.73 sqM) Est GFR (CKD-EPI)NonAf (>60 ml/min/1.73 sqM) Glucose (74-99) mg/dL Calcium (8.4-10.2) mg/dL Magnesium (1.6-2.3) mg/dL Total Bilirubin (0.2-1.3) mg/dL AST (14-36) U/L ALT (4-34) U/L Alkaline Phosphatase (38-126) U/L Troponin I <0.012 (0.000-0.034) ng/mL Total Protein (6.3-8.2) g/dL Albumin (3.5-5.0) g/dL TSH (0.465-4.680) mIU/L Free T4 (0.78-2.19) ng/dL Free T3 pg/mL (2.8-5.3) pg/ml - Radiology Data Radiology results: image reviewed (Chest x-ray shows no acute process) Disposition Clinical Impression: Tachycardia Disposition: HOME SELF-CARE Condition: Stable Instructions (If sedation given, give patient instructions): Heart Palpitations (ED) Additional Instructions: Please do follow-up with your primary care physician in the next day or 2 for recheck. You'll need further evaluation including Holter monitor, possible echo. Return for increased heart rate, chest pain or difficulty breathing, worsening symptoms or other concerns. Is patient prescribed a controlled substance at d/c from ED?: No Referrals: Jorge Vidal III, MD [Primary Care Provider] - 1-2 days Time of Disposition: 20:07
[2021-12-04 18:53] LABS: Basophils # (A) 0.1 k/uL (0-0.2); Basophils % (A) 1 %; Eosinophils # (A) 0.4 k/uL (0-0.7); Eosinophils % (A) 4 %; HCT 45.6 % (34.0-46.0); HGB 14.9 gm/dL (11.4-16.0); Lymphocytes # (A) 3.1 k/uL (1.0-4.8); Lymphocytes % (A) 27 %; MCH 29.3 pg (25.0-35.0); MCHC 32.7 g/dL (31.0-37.0); MCV 89.5 fL (80.0-100.0); Mean Platelet Volume 6.7; Monocytes # (A) 0.6 k/uL (0-1.0); Monocytes % (A) 5 %; Neutrophils % (A) 62 %; Platelet Count 470 k/uL (150-450); RBC 5.09 m/uL (3.80-5.40); RDW 12.6 % (11.5-15.5); WBC 11.4 k/uL (3.8-10.6)
[2021-12-04 19:01] LABS: Albumin 4.6 g/dL (3.5-5.0); Calcium 10.6 mg/dL (8.4-10.2); Potassium 4.5 mmol/L (3.5-5.1); Total Bilirubin 0.4 mg/dL (0.2-1.3); Total Protein 7.8 g/dL (6.3-8.2)
[2021-12-04 19:10] LABS: INR 0.9 (<1.2); Partial Thromboplastin Time 25.5 sec (22.0-30.0); Prothrombin Time 9.7 sec (9.0-12.0)
[2021-12-04 19:18] LABS: T4, Free (Free Thyroxine) 1.43 ng/dL (0.78-2.19)
--- NOTE | 2021-12-04 19:30 | XR ---
EXAMINATION TYPE: XR chest 2V DATE OF EXAM: 12/04/2021 COMPARISON: 12/13/2017 HISTORY: Dysrhythmia TECHNIQUE: 2 view FINDINGS: Heart and mediastinum are normal. Lungs are clear. Diaphragm is normal. Bony thorax appears normal. IMPRESSION: Normal chest. No change.
[2021-12-04 19:55] VITALS: BP 126/76; PULSE 100
== END 2021-12-04 20:18 | disposition home or self-care (01) ==
LOC: EC 18:19
DX: R00.0 Tachycardia, unspecified (principal); J45.909 Unspecified asthma, uncomplicated; E11.9 Type 2 diabetes mellitus without complications; E78.5 Hyperlipidemia, unspecified; I10 Essential (primary) hypertension; F41.9 Anxiety disorder, unspecified; E07.9 Disorder of thyroid, unspecified; Z79.51 Long term (current) use of inhaled steroids; Z79.84 Long term (current) use of oral hypoglycemic drugs; Z79.82 Long term (current) use of aspirin; Z79.890 Hormone replacement therapy; Z79.899 Other long term (current) drug therapy; Z88.8 Allergy status to other drugs, medicaments and biological substances
CPT/HCPCS: 36415; 71046; 80053; 83735; 84439; 84443; 84481; 84484; 85025; 85379; 85610; 85730; 93005; 99285

== ENCOUNTER 2021-12-09 19:27 | Inpatient (IN) | payer MEDICARE, BC ==
[2021-12-09] MEDS ORDERED: SODIUM CHLORIDE 0.9% 500 ML 500 ML IV STA (19:55)
--- NOTE | 2021-12-09 20:00 | ED ---
General Adult HPI - General Chief complaint: Recheck/Abnormal Lab/Rx Stated complaint: High Heart Rate, Back Pain Time Seen by Provider: 12/09/21 19:50 Source: patient, RN notes reviewed, old records reviewed Mode of arrival: ambulatory - History of Present Illness Initial comments: This is a 66-year-old female presents emergency Department complaining that she has been having intermittent back pain since yesterday. Patient states she was in the ER about 5 days ago with tachycardia he could not find a cause. She was told that there is any pain to come back to the emergency department immediately. Patient stated she started having back pain yesterday and it has been intermittent since then. It still is a little bit fast. Patient states that she has had no difficulty breathing or shortness of breath or recent fever chills or cough. Patient denies any lower extremity swelling or calf tenderness. Patient denies abdominal pain patient denies nausea vomiting diarrh ea. Patient denies any recent fever chills or cough. Patient denies lightheadedness or dizziness - Related Data Home Medications Medication Instructions Recorded Confirmed ALPRAZolam [Xanax] 0.25 mg PO DAILY PRN 12/13/17 12/09/21 Albuterol Sulfate [Proair Hfa] 2 puff INHALATION RT-Q4H PRN 12/13/17 12/09/21 Aspirin [Adult Low Dose Aspirin EC] 81 mg PO HS 12/13/17 12/09/21 Atorvastatin [Lipitor] 10 mg PO HS 12/13/17 12/09/21 Budesonide/Formoterol Fumarate 2 puff INHALATION RT-BID 12/13/17 12/09/21 [Symbicort 80-4.5 Mcg Inhaler] Colesevelam [Welchol] 1,875 mg PO BID 12/13/17 12/09/21 Levothyroxine Sodium [Synthroid] 137 mcg PO DAILY 12/13/17 12/09/21 Lisinopril-Hctz 20-25 mg 1 tab PO DAILY 12/13/17 12/09/21 [Zestoretic 20-25] Montelukast [Singulair] 10 mg PO HS 12/13/17 12/09/21 [place]-3 Fatty Acids/Fish Oil [Fish 2 cap PO BID 12/13/17 12/09/21 Oil 1,000 mg Softgel] metFORMIN HCL [Glucophage] 1,000 mg PO BID 12/13/17 12/09/21 sitaGLIPtin [Januvia] 100 mg PO DAILY 12/13/17 12/09/21 Albuterol Nebulized [Ventolin 2.5 mg INHALATION RT-Q6H PRN 12/04/21 12/09/21 Nebulized] Ascorbic Acid [Vitamin C] 500 mg PO HS 12/04/21 12/09/21 Ezetimibe [Zetia] 10 mg PO HS 12/04/21 12/09/21 Fluticasone Nasal [place] [Flonase 1 spray EA NOSTRIL DAILY PRN 12/04/21 12/09/21 Nasal [place]] Levocetirizine Dihydrochloride 5 mg PO HS 12/04/21 12/09/21 [Xyzal] Multivitamins, Thera [Multivitamin 1 tab PO DAILY 12/04/21 12/09/21 (formulary)] Allergies Allergy/AdvReac Type Severity Reaction Status Date / Time pioglitazone [From Actos] Allergy Severe lab Verified 12/09/21 20:44 reaction dapagliflozin [From Farxiga] Allergy Chest Pain Verified 12/09/21 20:44 fenofibrate AdvReac Severe muscle Verified 12/09/21 20:44 aches [place] Allergy Severe Swelling Uncoded 12/04/21 18:22 Review of Systems ROS Statement: Those systems with pertinent positive or pertinent negative responses have been documented in the HPI. ROS Other: All systems not noted in ROS Statement are negative. Past Medical History Past Medical History: Asthma, Diabetes Mellitus, Hyperlipidemia, Hypertension, Thyroid Disorder History of Any Multi-Drug Resistant Organisms: None Reported Past Surgical History: Section, Hernia Repair, Hysterectomy, Joint Replacement, Orthopedic Surgery Additional Past Surgical History / Comment(s): bilateral knee replacement, left knee scope Past Anesthesia/Blood Transfusion Reactions: No Reported Reaction Past Psychological History: Anxiety Smoking Status: Never smoker Past Alcohol Use History: None Reported Past Drug Use History: None Reported - Past Family History Mother Family Medical History: CVA/TIA, Diabetes Mellitus, Seizure Disorder Additional Family Medical History / Comment(s): carotid artery surgery, had seizures a week later . Father Additional Family Medical History / Comment(s): spenic anerysm that ruptured, endocarditis General Exam - General Exam Comments Initial Comments: GENERAL: Patient is well-developed and well-nourished. Patient is nontoxic and well- hydrated and is in mild distress. ENT: Neck is soft and supple. No significant lymphadenopathy is noted. Oropharynx is clear. Moist mucous membranes. Neck has full range of motion without eliciting any pain. EYES: The sclera were anicteric and conjunctiva were pink and moist. Extraocular movements were intact and pupils were equal round and reactive to light. Ey elids were unremarkable. PULMONARY: Unlabored respirations. Good breath sounds bilaterally. No audible rales rhonchi or wheezing was noted. CARDIOVASCULAR: Patient is tachycardic at about 110 bpm ABDOMEN: Soft and nontender with normal bowel sounds. SKIN: Skin is clear with no lesions or rashes and otherwise unremarkable. NEUROLOGIC: Patient is alert and oriented x3. Cranial nerves II through XII are grossly intact. Motor and sensory are also intact. Normal speech, volume and content. Symmetrical smile. MUSCULOSKELETAL: Normal extremities with adequate strength and full range of motion. No lower extremity swelling or edema. No calf tenderness. Back pain is not reproducible. LYMPHATICS: No significant lymphadenopathy is noted PSYCHIATRIC: Normal psychiatric evaluation. Course Vital Signs 12/09/21 19:48 Temperature 98.7 F Pulse Rate 107 H Respiratory 18 Rate Blood Pressure 141/89 O2 Sat by Pulse 94 L Oximetry Medical Decision Making - Medical Decision Making EKG shows sinus tachycardia at 105 bpm DE interval 281 cardiac 93 Q-T intervals 10/26/1969 QTC is 398. Patient's EKG shows no ST segment elevation or depression. Computed tomography scan shows no acute abnormality. I spoke with sounds physician's and he agreed to admit the patient admitted the patient wrote admitting orders I consulted cardiology - Lab Data Result diagrams: 12/09/21 19:57 12/09/21 19:57 Lab Results 12/09/21 12/09/21 12/09/21 Range/Units 19:57 19:57 19:57 WBC 9.8 (3.8-10.6) k/uL RBC 4.94 (3.80-5.40) m/uL Hgb 14.3 (11.4-16.0) gm/dL Hct 44.6 (34.0-46.0) % MCV 90.2 (80.0-100.0) fL MCH 29.0 (25.0-35.0) pg MCHC 32.1 (31.0-37.0) g/dL RDW 12.9 (11.5-15.5) % Plt Count 445 (150-450) k/uL MPV 6.6 Neutrophils % 59 % Lymphocytes % 30 % Monocytes % 6 % Eosinophils % 3 % Basophils % 1 % Neutrophils # 5.8 (1.3-7.7) k/uL Lymphocytes # 2.9 (1.0-4.8) k/uL Monocytes # 0.5 (0-1.0) k/uL Eosinophils # 0.3 (0-0.7) k/uL Basophils # 0.1 (0-0.2) k/uL PT 9.9 (9.0-12.0) sec INR 0.9 (<1.2) APTT 25.6 (22.0-30.0) sec D-Dimer 0.39 (<0.60) mg/L FEU Sodium 136 L (137-145) mmol/L Potassium 3.9 (3.5-5.1) mmol/L Chloride 105 (98-107) mmol/L Carbon Dioxide 24 (22-30) mmol/L Anion Gap 7 mmol/L BUN 16 (7-17) mg/dL Creatinine 0.79 (0.52-1.04) mg/dL Est GFR (CKD-EPI)AfAm >90 (>60 ml/min/1.73 sqM) Est GFR (CKD-EPI)NonAf 80 (>60 ml/min/1.73 sqM) Glucose 124 H (74-99) mg/dL Calcium 10.4 H (8.4-10.2) mg/dL Magnesium 1.9 (1.6-2.3) mg/dL Total Bilirubin 0.3 (0.2-1.3) mg/dL AST 30 (14-36) U/L ALT 35 H (4-34) U/L Alkaline Phosphatase 128 H (38-126) U/L Troponin I (0.000-0.034) ng/mL Total Protein 7.1 (6.3-8.2) g/dL Albumin 4.2 (3.5-5.0) g/dL 12/09/21 Range/Units 19:57 WBC (3.8-10.6) k/uL RBC (3.80-5.40) m/uL Hgb (11.4-16.0) gm/dL Hct (34.0-46.0) % MCV (80.0-100.0) fL MCH (25.0-35.0) pg MCHC (31.0-37.0) g/dL RDW (11.5-15.5) % Plt Count (150-450) k/uL MPV Neutrophils % % Lymphocytes % % Monocytes % % Eosinophils % % Basophils % % Neutrophils # (1.3-7.7) k/uL Lymphocytes # (1.0-4.8) k/uL Monocytes # (0-1.0) k/uL Eosinophils # (0-0.7) k/uL Basophils # (0-0.2) k/uL PT (9.0-12.0) sec INR (<1.2) APTT (22.0-30.0) sec D-Dimer (<0.60) mg/L FEU Sodium (137-145) mmol/L Potassium (3.5-5.1) mmol/L Chloride (98-107) mmol/L Carbon Dioxide (22-30) mmol/L Anion Gap mmol/L BUN (7-17) mg/dL Creatinine (0.52-1.04) mg/dL Est GFR (CKD-EPI)AfAm (>60 ml/min/1.73 sqM) Est GFR (CKD-EPI)NonAf (>60 ml/min/1.73 sqM) Glucose (74-99) mg/dL Calcium (8.4-10.2) mg/dL Magnesium (1.6-2.3) mg/dL Total Bilirubin (0.2-1.3) mg/dL AST (14-36) U/L ALT (4-34) U/L Alkaline Phosphatase (38-126) U/L Troponin I <0.012 (0.000-0.034) ng/mL Total Protein (6.3-8.2) g/dL Albumin (3.5-5.0) g/dL Disposition Clinical Impression: Tachycardia, Back pain, Equivalent angina Disposition: ADMITTED IP TO THIS [facility] Referrals: Jorge Vidal III, MD [Primary Care Provider] - 1-2 days Time of Disposition: 20:55
[2021-12-09 20:14] LABS: Basophils # (A) 0.1 k/uL (0-0.2); Basophils % (A) 1 %; Eosinophils # (A) 0.3 k/uL (0-0.7); Eosinophils % (A) 3 %; HCT 44.6 % (34.0-46.0); HGB 14.3 gm/dL (11.4-16.0); Lymphocytes # (A) 2.9 k/uL (1.0-4.8); Lymphocytes % (A) 30 %; MCHC 32.1 g/dL (31.0-37.0); MCV 90.2 fL (80.0-100.0); Mean Platelet Volume 6.6; Monocytes # (A) 0.5 k/uL (0-1.0); Monocytes % (A) 6 %; Neutrophils # (A) 5.8 k/uL (1.3-7.7); Neutrophils % (A) 59 %; Platelet Count 445 k/uL (150-450); RBC 4.94 m/uL (3.80-5.40); RDW 12.9 % (11.5-15.5); WBC 9.8 k/uL (3.8-10.6)
--- NOTE | 2021-12-09 20:25 | XR ---
EXAMINATION TYPE: XR chest 2V DATE OF EXAM: 12/09/2021 COMPARISON: 12/04/2021 HISTORY: Dysrhythmia TECHNIQUE: 2 views FINDINGS: Heart and mediastinum are normal. Lungs are clear. Diaphragm is normal. Bony thorax is inta ct. There are chest leads. IMPRESSION: Normal chest. Normal heart. No change.
[2021-12-09 20:28] LABS: ALT 35 U/L (4-34); AST 30 U/L (14-36); African American GFR (CKD) >90 (>60 ml/min/1.73 sqM); Albumin 4.2 g/dL (3.5-5.0); Alkaline Phosphatase 128 U/L (38-126); Anion Gap 7 mmol/L; Blood Urea Nitrogen 16 mg/dL (7-17); Calcium 10.4 mg/dL (8.4-10.2); Carbon Dioxide 24 mmol/L (22-30); Chloride 105 mmol/L (98-107); Glucose 124 mg/dL (74-99); Magnesium 1.9 mg/dL (1.6-2.3); Non-African American GFR(CKD) 80 (>60 ml/min/1.73 sqM); Potassium 3.9 mmol/L (3.5-5.1); Sodium 136 mmol/L (137-145); Total Bilirubin 0.3 mg/dL (0.2-1.3); Total Protein 7.1 g/dL (6.3-8.2)
[2021-12-09 20:29] LABS: INR 0.9 (<1.2); Partial Thromboplastin Time 25.6 sec (22.0-30.0); Prothrombin Time 9.9 sec (9.0-12.0)
--- NOTE | 2021-12-09 20:52 | CT ---
EXAMINATION TYPE: CT chest angio for PE DATE OF EXAM: 12/09/2021 COMPARISON: None HISTORY: cgest and back pain CT DLP: 488.7 mGycm Automated exposure control for dose reduction was used. CONTRAST: Performed with IV Contrast, patient injected with 100 mL of Isovue 370. Images obtained from the thoracic inlet to the diaphragm with IV contrast. There are 3-D post process ed images. There is minimal subsegmental atelectasis in the lower lung p[place]. Heart size is normal. No pericard ial effusion. No pleural effusion. There are no hilar masses. There is no mediastinal adenopathy. Thoracic aorta is intact. No aneurysm or dissection. There is normal contrast opacification of the pu lmonary arteries. There are no filling defects. The thoracic spine is intact. No compression fracture. There is some spurring in the thoracic spine. Sternum is intact. Upper abdominal soft tissues are intact. IMPRESSION: Negative exam. No evidence of pulmonary embolism. No arterial aneurysm or dissection.
[2021-12-09] MEDS ORDERED: NITROGLYCERIN SL TABS 0.4 MG TAB SUBLINGUAL PRN (21:01)
[2021-12-09] MEDS: NITROGLYCERIN OINT 1 INCH/GM PACKET TOPICAL SCH (23:27)
[2021-12-10] MEDS ORDERED: ALPRAZolam 0.25 MG TAB PO PRN (03:00)
[2021-12-10] MEDS ORDERED: ALBUTEROL NEBULIZED 2.5 MG/3 ML INHALATION PRN (03:00)
--- NOTE | 2021-12-10 03:02 | P.HPIM ---
History of Present Illness H&P Date: 12/09/21 Chief Complaint: Back pain 66-year-old female with diabetes mellitus, asthma, hypertension Patient comes in with complaint of the back pain, described as interscapular sharp pain 4 out of 10 in severity not associated with any dizziness lightheadedness nausea or vomiting does not recall any injuries or falls. Upon advise for her friends came to the hospital for evaluation. She reports that she is generally in good health however about a week ago she experienced some u nexplained tachycardia and palpitations where her heart rate was in the 135-140 range otherwise was totally asymptomatic She denies any cardiac history denies any recent travel he denies any history of blood clots. However she's been trying to adjust her thyroid medications with PCP Patient claims that the patient was feeling slightly off for which she decided to come in for evaluation In the ED work was unremarkable CT angiogram of the chest was negative for acute pathology EKG showed sinus tachycardia and no acute ST changes in her blood work overall unremarkable except for mild hypercalcemia Review of Systems Pertinent positives as noted in HPI. All other systems were reviewed and are negative Past Medical History Past Medical History: Asthma, Diabetes Mellitus, Hyperlipidemia, Hypertension, Thyroid Disorder History of Any Multi-Drug Resistant Organisms: None Reported Past Surgical History: Section, Hernia Repair, Hysterectomy, Joint Replacement, Orthopedic Surgery Additional Past Surgical History / Comment(s): bilateral knee replacement, left knee scope Past Anesthesia/Blood Transfusion Reactions: No Reported Reaction Past Psychological History: Anxiety Smoking Status: Never smoker Past Alcohol Use History: None Reported Past Drug Use History: None Reported - Past Family History Mother Family Medical History: CVA/TIA, Diabetes Mellitus, Seizure Disorder Additional Family Medical History / Comment(s): carotid artery surgery, had seizures a week later . Father Additional Family Medical History / Comment(s): spenic anerysm that ruptured, endocarditis Medications and Allergies Home Medications Medication Instructions Recorded Confirmed Type ALPRAZolam [Xanax] 0.25 mg PO DAILY PRN 12/13/17 12/09/21 History Albuterol Sulfate [Proair Hfa] 2 puff INHALATION RT-Q4H PRN 12/13/17 12/09/21 History Aspirin [Adult Low Dose Aspirin EC] 81 mg PO HS 12/13/17 12/09/21 History Atorvastatin [Lipitor] 10 mg PO HS 12/13/17 12/09/21 History Budesonide/Formoterol Fumarate 2 puff INHALATION RT-BID 12/13/17 12/09/21 History [Symbicort 80-4.5 Mcg Inhaler] Colesevelam [Welchol] 1,875 mg PO BID 12/13/17 12/09/21 History Levothyroxine Sodium [Synthroid] 137 mcg PO DAILY 12/13/17 12/09/21 History Lisinopril-Hctz 20-25 mg 1 tab PO DAILY 12/13/17 12/09/21 History [Zestoretic 20-25] Montelukast [Singulair] 10 mg PO HS 12/13/17 12/09/21 History [place]-3 Fatty Acids/Fish Oil [Fish 2 cap PO BID 12/13/17 12/09/21 History Oil 1,000 mg Softgel] metFORMIN HCL [Glucophage] 1,000 mg PO BID 12/13/17 12/09/21 History sitaGLIPtin [Januvia] 100 mg PO DAILY 12/13/17 12/09/21 History Albuterol Nebulized [Ventolin 2.5 mg INHALATION RT-Q6H PRN 12/04/21 12/09/21 History Nebulized] Ascorbic Acid [Vitamin C] 500 mg PO HS 12/04/21 12/09/21 History Ezetimibe [Zetia] 10 mg PO HS 12/04/21 12/09/21 History Fluticasone Nasal [place] [Flonase 1 spray EA NOSTRIL DAILY PRN 12/04/21 12/09/21 History Nasal [place]] Levocetirizine Dihydrochloride 5 mg PO HS 12/04/21 12/09/21 History [Xyzal] Multivitamins, Thera [Multivitamin 1 tab PO DAILY 12/04/21 12/09/21 History (formulary)] Allergies Allergy/AdvReac Type Severity Reaction Status Date / Time pioglitazone [From Actos] Allergy Severe lab Verified 12/09/21 20:44 reaction dapagliflozin [From Farxiga] Allergy Chest Pain Verified 12/09/21 20:44 fenofibrate AdvReac Severe muscle Verified 12/09/21 20:44 aches [place] Allergy Severe Swelling Uncoded 12/04/21 18:22 Physical Exam Vitals: Vital Signs Temp Pulse Pulse Resp BP BP Pulse Ox 12/10/21 00:37 97.6 F 87 15 123/76 97 12/09/21 22:01 98.1 F 100 16 160/92 97 12/09/21 21:22 101 H 18 135/77 97 12/09/21 19:48 98.7 F 107 H 18 141/89 94 L Intake and Output 12/09/21 12/09/21 12/10/21 14:59 22:59 06:59 Other: # Voids 1 Weight 87.09 kg Constitutional: No acute distress, conversant, pleasant Eyes: Anicteric sclerae, moist conjunctiva, Pupils equal round reactive to light ENMT: NC/AT Oropharynx clear, no erythema, or exudates Neck: Supple, no masses, or JVD No carotid bruits No thyromegaly Lungs: Clear to auscultation Clear to percussion Normal respiratory effort, no accessory muscle use Cardiovascular: Heart regular in rate and rhythm, No murmurs, gallops, or rubs No peripheral edema Abdominal: Soft Nontender, no guarding, rebound or rigidity Abdomen moving with respiration Normoactive bowel sounds No hepatomegaly, No splenomegaly No palpable mass No abdominal wall hernia noted Skin: Normal temperature, tone, texture, turgor No induration No subcutaneous nodules No rash, lesions No ulcers Extremities: No digital cyanosis No clubbing Pedal pulses intact and symmetrical Radial pulses intact and symmetrical No calf tenderness Psychiatric: Alert and oriented to person, place and time Appropriate affect fair judgement Neuro Muscles Strength 4/5 in all 4 extremities Sensation to light touch grossly present throughout Cranial nerves II-XII grossly intact No focal sensory deficits Lymphatics: no palpable cervical or supraclavicular , or inguinal lymph nodes Results CBC & Chem 7: 12/09/21 19:57 12/09/21 19:57 Labs: Abnormal Lab Results - Last 24 Hours (Table) 12/09/21 Range/Units 19:57 Sodium 136 L (137-145) mmol/L Glucose 124 H (74-99) mg/dL Calcium 10.4 H (8.4-10.2) mg/dL ALT 35 H (4-34) U/L Alkaline Phosphatase 128 H (38-126) U/L Assessment and Plan Assessment: Sinus tachycardia Interscapular back pain CT angiogram of the chest negative for acute pathology Blood work overall unremarkable except for mild hypercalcemia Admitted for evaluation by cardiology Gentle IV fluid hydration Diabetes mellitus Blood sugar control Check A1c Continue with home blood sugar medications metformin Insulin sliding scale History of asthma well-controlled Continue inhalers Full code DVT prophylaxis heparin subcu 3 times a day Anticipated length of stay less than 2 midnights
[2021-12-10] MEDS: SODIUM CHLORIDE 0.9% 1,000 ML IV SCH ×2 (03:30→20:09)
[2021-12-10] MEDS: NITROGLYCERIN OINT 1 INCH/GM PACKET TOPICAL SCH (05:44)
[2021-12-10] MEDS: LEVOTHYROXINE 137 MCG TAB PO SCH (06:11)
[2021-12-10] MEDS: SYMBICORT 80-4.5 MCG INHALER INHALATION SCH ×2 (07:07→19:03)
[2021-12-10] MEDS: COLESEVELAM 625 MG TAB PO SCH ×2 (08:47→21:40)
[2021-12-10] MEDS: HEPARIN SODIUM,PORCINE/PF 5,000 UNIT/0.5 ML SYRINGE SQ SCH ×3 (08:47→21:39)
[2021-12-10] MEDS: MULTIVITAMINS, THERA 1 EACH TAB PO SCH (08:49)
[2021-12-10] MEDS: metFORMIN 500 MG TAB PO SCH ×2 (08:49→21:42)
[2021-12-10] MEDS: LISINOPRIL-HCTZ 20-25 MG 1 EACH TAB PO SCH (08:50)
[2021-12-10] MEDS: LINAGLIPTIN 5 MG TABLET PO SCH (08:52)
[2021-12-10] MEDS ORDERED: ASPIRIN 325 MG TAB PO SCH (09:00)
[2021-12-10] MEDS ORDERED: CAFFEINE CITRATE 60 MG/3 ML VIAL IV PRN (10:16)
[2021-12-10] MEDS ORDERED: AMINOPHYLLINE 500 MG/20 ML VIAL IV PRN (10:16)
--- NOTE | 2021-12-10 10:56 | P.CRDCN ---
History of Present Illness History of present illness: HISTORY OF PRESENTING ILLNESS This is a pleasant 66-year-old female past medical history significant for hypertension, dyslipidemia and diabetes mellitus. 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 We have been asked to see in consultation for chest pain. This is her second evaluation at the hospital. Initially occurring on the Saturday after eating out at a restaurant she states she just didn't feel well she can't specifically pinpoint a symptom. When she got back in the car she noticed her heart rate on her watch with 139. She presented to the hospital was evaluated in the ER and sent home. She saw her PCP who recommended a heart monitor which she was supposed to get next week. Starting Saturday afternoon she had a pain in her back in the upper region that radiated to her bilateral shoulder blades. It was constant but no specific aggravating or alleviating factors. It did not radiate through to the chest on the arms into the neck or jaw. DIAGNOSTICS EKG reveals sinus tachycardia heart rate of 105. Telemetry tracings indicate sinus rhythm. Chest xray negative for an acute cardiopulmonary process. Laboratory reviewed, cardiac enzymes negative 2, TSH 1.68 and d-dimer negative. Current cardiac medications include lisinopril/hydrochlorothiazide 20/25 mg daily, atorvastatin 10 mg daily, aspirin and Zetia. REVIEW OF SYSTEMS At the time of my exam: CONSTITUTIONAL: Denies fever or chills. CARDIOVASCULAR: Denies chest pain, shortness of breath, orthopnea, PND or palpitations. RESPIRATORY: Denies cough. GASTROINTESTINAL: Denies abdominal pain, diarrhea, constipation, nausea or vomiting. MUSCULOSKELETAL: Denies myalgias. NEUROLOGIC: Denies numbness, tingling, headache or weakness. ENDOCRINE: Denies fatigue, weight change, polydipsia or polyurina. GENITOURINARY: Denies burning, hematuria or urgency with micturation. HEMATOLOGIC: Denies history of anemia or bleeding. PHYSICAL EXAMINATION Blood pressure 116/73 heart rate 88 afebrile and maintaining oxygen saturation on room air. CONSTITUTIONAL: No apparent distress. HEENT: Head is normocephalic. Pupils are equal, round. Sclerae anicteric. Mucous membranes of the mouth are moist. No JVD. No carotid bruit. CHEST EXAMINATION: Lungs are clear to auscultation. No chest wall tenderness is noted on palpation or with deep breathing. HEART EXAMINATION: Regular rate and rhythm. S1, S2 heard. No murmurs, gallops or rub. ABDOMEN: Soft, nontender. EXTREMITIES: 2+ peripheral pulses, no lower extremity edema and no calf tenderness. NEUROLOGIC EXAMINATION: Patient is awake, alert and oriented x3. ASSESSMENT Chest pain Hypertension Dyslipidemia Diabetes mellitus Sinus tachycardia PLAN An acute coronary event has been ruled out. Given her risk factor profile we recommend Lexiscan stress test in the morning. Obtain 2-D echocardiogram and Doppler study to assess cardiac structure and function. Add metoprolol 25 mg twice a day to her daily regimen. Further recommendations to follow based upon clinical course. Thank you kindly for this consultation. Nurse Practitioner note has been reviewed, I agree with a documented findings and plan of care. Patient was seen and examined. Past Medical History Past Medical History: Asthma, Diabetes Mellitus, Hyperlipidemia, Hypertension, Thyroid Disorder History of Any Multi-Drug Resistant Organisms: None Reported Past Surgical History: Section, Hernia Repair, Hysterectomy, Joint Replacement, Orthopedic Surgery Additional Past Surgical History / Comment(s): bilateral knee replacement, left knee scope Past Anesthesia/Blood Transfusion Reactions: No Reported Reaction Past Psychological History: Anxiety Smoking Status: Never smoker Past Alcohol Use History: None Reported Past Drug Use History: None Reported - Past Family History Mother Family Medical History: CVA/TIA, Diabetes Mellitus, Seizure Disorder Additional Family Medical History / Comment(s): carotid artery surgery, had seizures a week later . Father Additional Family Medical History / Comment(s): spenic anerysm that ruptured, endocarditis Medications and Allergies Home Medications Medication Instructions Recorded Confirmed Type ALPRAZolam [Xanax] 0.25 mg PO DAILY PRN 12/13/17 12/09/21 History Albuterol Sulfate [Proair Hfa] 2 puff INHALATION RT-Q4H PRN 12/13/17 12/09/21 History Aspirin [Adult Low Dose Aspirin EC] 81 mg PO HS 12/13/17 12/09/21 History Atorvastatin [Lipitor] 10 mg PO HS 12/13/17 12/09/21 History Budesonide/Formoterol Fumarate 2 puff INHALATION RT-BID 12/13/17 12/09/21 History [Symbicort 80-4.5 Mcg Inhaler] Colesevelam [Welchol] 1,875 mg PO BID 12/13/17 12/09/21 History Levothyroxine Sodium [Synthroid] 137 mcg PO DAILY 12/13/17 12/09/21 History Lisinopril-Hctz 20-25 mg 1 tab PO DAILY 12/13/17 12/09/21 History [Zestoretic 20-25] Montelukast [Singulair] 10 mg PO HS 12/13/17 12/09/21 History [place]-3 Fatty Acids/Fish Oil [Fish 2 cap PO BID 12/13/17 12/09/21 History Oil 1,000 mg Softgel] metFORMIN HCL [Glucophage] 1,000 mg PO BID 12/13/17 12/09/21 History sitaGLIPtin [Januvia] 100 mg PO DAILY 12/13/17 12/09/21 History Albuterol Nebulized [Ventolin 2.5 mg INHALATION RT-Q6H PRN 12/04/21 12/09/21 History Nebulized] Ascorbic Acid [Vitamin C] 500 mg PO HS 12/04/21 12/09/21 History Ezetimibe [Zetia] 10 mg PO HS 12/04/21 12/09/21 History Fluticasone Nasal [place] [Flonase 1 spray EA NOSTRIL DAILY PRN 12/04/21 12/09/21 History Nasal [place]] Levocetirizine Dihydrochloride 5 mg PO HS 12/04/21 12/09/21 History [Xyzal] Multivitamins, Thera [Multivitamin 1 tab PO DAILY 12/04/21 12/09/21 History (formulary)] Allergies Allergy/AdvReac Type Severity Reaction Status Date / Time pioglitazone [From Actos] Allergy Severe lab Verified 12/09/21 20:44 reaction dapagliflozin [From [facility]] Allergy Chest Pain Verified 12/09/21 20:44 fenofibrate AdvReac Severe muscle Verified 12/09/21 20:44 aches [place] Allergy Severe Swelling Uncoded 12/04/21 18:22 Physical Exam Vitals: Vital Signs Temp Pulse Pulse Resp BP BP Pulse Ox 12/10/21 07:00 97.8 F 88 16 116/73 95 12/10/21 00:37 97.6 F 87 15 123/76 97 12/09/21 22:01 98.1 F 100 16 160/92 97 12/09/21 21:22 101 H 18 135/77 97 12/09/21 19:48 98.7 F 107 H 18 141/89 94 L Intake and Output 12/09/21 12/10/21 12/10/21 22:59 06:59 14:59 Other: # Voids 1 1 1 Weight 87.09 kg Results 12/09/21 19:57 12/09/21 19:57 Cardiac Enzymes 12/09/21 12/09/21 12/09/21 Range/Units 19:57 19:57 22:20 AST 30 (14-36) U/L Troponin I <0.012 <0.012 (0.000-0.034) ng/mL Coagulation 12/09/21 Range/Units 19:57 PT 9.9 (9.0-12.0) sec APTT 25.6 (22.0-30.0) sec CBC 12/09/21 Range/Units 19:57 WBC 9.8 (3.8-10.6) k/uL RBC 4.94 (3.80-5.40) m/uL Hgb 14.3 (11.4-16.0) gm/dL Hct 44.6 (34.0-46.0) % Plt Count 445 (150-450) k/uL Comprehensive Metabolic Panel 12/09/21 Range/Units 19:57 Sodium 136 L (137-145) mmol/L Potassium 3.9 (3.5-5.1) mmol/L Chloride 105 (98-107) mmol/L Carbon Dioxide 24 (22-30) mmol/L BUN 16 (7-17) mg/dL Creatinine 0.79 (0.52-1.04) mg/dL Glucose 124 H (74-99) mg/dL Calcium 10.4 H (8.4-10.2) mg/dL AST 30 (14-36) U/L ALT 35 H (4-34) U/L Alkaline Phosphatase 128 H (38-126) U/L Total Protein 7.1 (6.3-8.2) g/dL Albumin 4.2 (3.5-5.0) g/dL Current Medications Generic Name Dose Route Start Last Admin Trade Name Freq PRN Reason Stop Dose Admin Albuterol Sulfate 2.5 mg 12/10/21 03:00 Albuterol Nebulized 2.5 Mg/3 Ml INHALATION RT-Q4H PRN Wheezing Alprazolam 0.25 mg 12/10/21 03:00 Alprazolam 0.25 Mg Tab PO DAILY PRN Anxiety Aspirin 325 mg 12/10/21 09:00 Aspirin 325 Mg Tab PO DAILY ANDREW Atorvastatin Calcium 10 mg 12/10/21 21:00 Atorvastatin 10 Mg Tab PO HS ANDREW Budesonide/Formoterol Fumarate 2 puff 12/10/21 08:00 12/10/21 07:07 Symbicort 80-4.5 Mcg Inhaler INHALATION 2 puff RT-BID ANDREW Administration Colesevelam HCl 1,875 mg 12/10/21 09:00 Colesevelam 625 Mg Tab PO BID ANDREW Ezetimibe 10 mg 12/10/21 21:00 Ezetimibe 10 Mg Tab PO HS ANDREW Lisinopril/HCTZ 1 each 12/10/21 09:00 Lisinopril-Hctz 20-25 Mg 1 Each Tab PO DAILY [facility] Heparin Sodium (Porcine) 5,000 unit 12/10/21 08:00 Heparin Sodium,Porcine/Pf 5,000 Unit/0.5 Ml Syringe SQ Q8HR [facility] Sodium Chloride 1,000 mls @ 75 mls/hr 12/10/21 03:00 12/10/21 03:30 Saline 0.9% IV 75 mls/hr .[id number] ANDREW Administration Levothyroxine Sodium 137 mcg 12/10/21 06:30 12/10/21 06:11 Levothyroxine 137 Mcg Tab PO 137 mcg DAILY@0630 ANDREW Administration Linagliptin 5 mg 12/10/21 09:00 Linagliptin 5 Mg Tablet PO DAILY [facility] Loratadine 10 mg 12/10/21 21:00 Loratadine 10 Mg Tab PO HS ANDREW Metformin HCl 1,000 mg 12/10/21 09:00 Metformin 500 Mg Tab PO BID [facility] Montelukast Sodium 10 mg 12/10/21 21:00 Montelukast 10 Mg Tab PO HS ANDREW Multivitamins 1 each 12/10/21 09:00 Multivitamins, Thera 1 Each Tab PO DAILY ANDREW Nitroglycerin 0.4 mg 12/09/21 21:01 Nitroglycerin Sl Tabs 0.4 Mg Tab SUBLINGUAL Q5M PRN Chest Pain Nitroglycerin 1 inch 12/10/21 00:00 12/10/21 05:44 Nitroglycerin Oint 1 Inch/Gm Packet TOPICAL Not Given Q6HR ANDREW Intake and Output 12/09/21 12/10/21 12/10/21 22:59 06:59 14:59 Other: # Voids 1 1 1 Weight 87.09 kg 12/09/21 19:57 12/09/21 19:57
[2021-12-10] MEDS: METOPROLOL TARTRATE 25 MG TAB PO SCH ×2 (13:10→21:42)
--- NOTE | 2021-12-10 16:36 | P.PN ---
Subjective Progress Note Date: 12/10/21 66 yo female admitted yesterday with chest pain, and tachycardia in the 130's. She has not had any chest pain since admission, HR has been stable. She denies any dyspnea, no chest pain, no cough fevers or chills. She was started on Lopressor by cardiology. Plan for stress test tomorrow Objective - Vital Signs Vital signs: Vital Signs Temp 98.1 F 12/10/21 14:28 Pulse 82 12/10/21 14:28 Resp 16 12/10/21 14:28 BP 114/78 12/10/21 14:28 Pulse Ox 94 L 12/10/21 14:28 Intake & Output 12/09/21 12/10/21 12/10/21 18:59 06:59 18:59 Weight 87.09 kg Other: # Voids 1 1 # Bowel Movements 1 - Constitutional General appearance: Present: cooperative, no acute distress, obese - EENT Eyes: Present: EOMI, PERRLA - Respiratory Respiratory: bilateral: CTA, negative: diminished, rhonchi, wheezing - Cardiovascular Heart rate: 94 Rhythm: regular Heart sounds: normal: S1, S2 Abnormal Heart Sounds: Absent: systolic murmur, diastolic murmur - Gastrointestinal General gastrointestinal: Present: normal bowel sounds. Absent: distended, tenderness - Integumentary Integumentary: Present: calor, rash - Neurologic Neurologic: Present: CNII-XII intact, focal deficits - Musculoskeletal Musculoskeletal: Present: strength equal bilaterally - Psychiatric Psychiatric: Present: A&O x's 3, appropriate affect, intact judgment & insight - Labs CBC & Chem 7: 12/09/21 19:57 12/09/21 19:57 Labs: Abnormal Lab Results - Last 24 Hours (Table) 12/09/21 Range/Units 19:57 Sodium 136 L (137-145) mmol/L Glucose 124 H (74-99) mg/dL Calcium 10.4 H (8.4-10.2) mg/dL ALT 35 H (4-34) U/L Alkaline Phosphatase 128 H (38-126) U/L
[2021-12-10] MEDS: EZETIMIBE 10 MG TAB PO SCH (21:41)
[2021-12-10] MEDS: LORATADINE 10 MG TAB PO SCH (21:42)
[2021-12-10] MEDS: MONTELUKAST 10 MG TAB PO SCH (21:42)
[2021-12-10] MEDS: ATORVASTATIN 10 MG TAB PO SCH (21:45)
[2021-12-11] MEDS: SODIUM CHLORIDE 0.9% 1,000 ML IV SCH ×2 (04:46→15:38)
[2021-12-11] MEDS: LEVOTHYROXINE 137 MCG TAB PO SCH (05:53)
[2021-12-11] MEDS: ACETAMINOPHEN TAB 325 MG TAB PO PRN ×2 (06:09→23:29)
[2021-12-11] MEDS ORDERED: REGADENOSON 0.4 MG/5 ML SYRINGE IV PRN (07:00)
[2021-12-11] MEDS: SYMBICORT 80-4.5 MCG INHALER INHALATION SCH ×2 (08:10→20:13)
[2021-12-11] MEDS: ASPIRIN 81 MG PO SCH (08:13)
[2021-12-11] MEDS: LISINOPRIL-HCTZ 20-25 MG 1 EACH TAB PO SCH (08:13)
[2021-12-11] MEDS: COLESEVELAM 625 MG TAB PO SCH ×2 (08:13→21:17)
[2021-12-11] MEDS: MULTIVITAMINS, THERA 1 EACH TAB PO SCH (08:14)
[2021-12-11] MEDS ORDERED: REGADENOSON 0.4 MG/5 ML SYRINGE IV ONE (08:55)
[2021-12-11] MEDS ORDERED: AMINOPHYLLINE 500 MG/20 ML VIAL IV ONE (09:07)
--- NOTE | 2021-12-11 09:10 | P.PN ---
Subjective HISTORY OF PRESENTING ILLNESS This is a pleasant 66-year-old female past medical history significant for hypertension, dyslipidemia and diabetes mellitus. She denies prior history of coronary artery disease and does not follow in the office with a rn x ray. We have been asked to see in consultation for chest pain. This is her second evaluation at the hospital. Initially occurring on the Saturday after eating out at a restaurant she states she just didn't feel well she can't specifically pinpoint a symptom. When she got back in the car she noticed her heart rate on her watch with 139. She presented to the hospital was evaluated in the ER and sent home. She saw her PCP who recommended a heart monitor which she was supposed to get next week. Starting Saturday afternoon she had a pain in her back in the upper region that radiated to her bilateral shoulder blades. It was constant but no specific aggravating or alleviating factors. It did not radiate through to the chest on the arms into the neck or jaw. EKG revealed sinus tachycardia heart rate of 105. Chest xray negative for an acute cardiopulmonary process. Laboratory reviewed, cardiac enzymes negative 3, d-dimer negative. 12/11/2021 Patient seen and examined at bedside, no acute distress. She denies any further back pain. She denies any chest pain or shortness of breath. Ambulating in her room with no difficulty. Acute coronary syndrome has ruled out. Plan for patient to undergo Lexiscan stress test today. Meds: on aspirin 81 mg daily, atorvastatin 10 mg nightly, Zetia 10mg night , lisinoprilthiazide 2025 milligrams daily, metoprolol titrate 25 mg twice a day Telemetry reviewed patient sinus mechanism with heart rates in the 70s80s. PHYSICAL EXAMINATION Blood pressure 127/74, heart 78, afebrile, saturations 97% on room air CONSTITUTIONAL: No apparent distress. HEENT: Neck Supple. No JVD. No carotid bruit. CHEST EXAMINATION: Lungs are clear to auscultation. No chest wall tenderness is noted on palpation or with deep breathing. HEART EXAMINATION: Regular rate and rhythm. S1, S2 heard. No murmurs, gallops or rub. ABDOMEN: Soft, nontender. EXTREMITIES: 2+ peripheral pulses, no lower extremity edema and no calf tenderness. NEUROLOGIC EXAMINATION: Patient is awake, alert and oriented x3. ASSESSMENT Chest pain, Back pain, atypical, acute coronary syndrome ahs been ruled out Hypertension Dyslipidemia Diabetes mellitus Sinus tachycardia PLAN An acute coronary event has been ruled out. Given her risk factor profile we recommend Lexiscan stress test. Obtain 2-D echocardiogram and Doppler study to assess cardiac structure and function. Continue metoprolol 25 mg twice a day to her daily regimen. From a cardiology perspective, if Lexiscan stress test and echocardiogram with no acute findings, ok to discharge home and follow up outpatient. Nurse Practitioner note has been reviewed, I agree with a documented findings and plan of care. Patient was seen and examined. Objective - Vital Signs Vital signs: Vital Signs Temp 97.5 F L 12/11/21 07:00 Pulse 78 12/11/21 07:00 Resp 16 12/11/21 07:00 BP 127/74 12/11/21 07:00 Pulse Ox 97 12/11/21 07:00 Intake & Output 12/10/21 12/11/21 12/11/21 18:59 06:59 18:59 Intake Total 118 Balance 118 Intake: Oral 118 Other: # Voids 1 1 # Bowel Movements 1 - Labs CBC & Chem 7: 12/09/21 19:57 12/09/21 19:57
[2021-12-11 09:54] LABS: African American GFR (CKD) 110.9 (60.0-200.0); Albumin 3.8 g/dL (3.8-4.9); Albumin/Globulin Ratio 2.11 (1.60-3.17); Anion Gap 11.4 mmol/L (10.00-18.00); BUN/Creat Ratio 20.5 Ratio (12.00-20.00); Blood Urea Nitrogen 12.3 mg/dL (9.0-27.0); Carbon Dioxide 22.6 mmol/L (20.0-27.5); Globulin 1.8 g/dL (1.6-3.3); Non-African American GFR(CKD) 95.7 (60.0-200.0); Potassium 4.3 mmol/L (3.5-5.5); Total Bilirubin 0.2 mg/dL (0.30-1.20); Total Protein 5.6 g/dL (6.2-8.2)
[2021-12-11 09:59] LABS: Chol/HDL Ratio 2.48 Ratio; LDL Cholesterol,Calculated 35.8 mg/dL (0.0-131.0)
--- NOTE | 2021-12-11 10:04 | P.STRESS ---
- Stress Test Note Stress Test Results/Findings: Exam Performed: NM stress lexiscan cardiolite Exam Date: 12/11/21 Reason for Exam: TACHYCARDIA Height: 5 ft 6 in Weight: 87.09 kg Protocol: LEXISCAN Stage: NA Duration of Exercise: 5 MINUTE INFUSION Resting Heart Rate: 84 Resting Blood Pressure: 146/76 Maximum Achieved Heart Rate: 137 Maximum Achieved Blood Pressure: 174/84 85% PMHR: 132 100% PMHR: 155 METS: NA Technologist Comment: Stress Test Results/Findings: This is a 66-year-old female with history of hypertension, diabetes and hyper cholesterolemia being evaluated for cardiac status. Stress data: Baseline EKG showed sinus rhythm with normal NM interval and QRS duration. Blood pressure at rest is 146/76 with pulse rate of 84. A standard dose of Lexiscan was infused. EKGs taken during and after infusion did not reveal any significant changes from the baseline. Patient developed headache which was relieved with IV Aminophyllin. Final impression: #1. Negative Lexiscan stress test #2. Report on the nuclear images to be provided by the radiologist.
[2021-12-11 10:05] LABS: Basophils # (A) 0.06 X 10*3/uL (0.00-0.10); Basophils % (A) 0.7 %; Eosinophils # (A) 0.28 X 10*3/uL (0.04-0.35); Eosinophils % (A) 3.3 %; HCT 36.7 % (37.2-46.3); HGB 11.9 g/dL (12.0-15.0); Immature Grans, Automated 0.4 %; Lymphocytes # (A) 2.58 X 10*3/uL (0.90-5.00); Lymphocytes % (A) 30.5 %; MCH 29.8 pg (27.0-32.0); MCHC 32.4 g/dL (32.0-37.0); Mean Platelet Volume 8.8 fL (9.5-12.2); Monocytes # (A) 0.62 X 10*3/uL (0.20-1.00); Monocytes % (A) 7.3 %; NRBC Per 100 WBC 0 /100 WBCS (0.0-0.0); Neutrophils # (A) 4.89 X 10*3/uL (1.80-7.70); Neutrophils % (A) 57.8 %; Platelet Count 349 X 10*3/uL (140-440); RBC 3.99 X 10*6/uL (4.10-5.20); RDW 12.8 % (11.5-14.5); WBC 8.46 X 10*3/uL (4.50-10.00)
--- NOTE | 2021-12-11 11:52 | ECHOF ---
Referral Reason:Sinus tachycardia MEASUREMENTS -------- HEIGHT: 167.6 cm WEIGHT: 87.1 kg BP: RVIDd: 2.5 cm (< 3.3) IVSd: 0.9 cm (0.6 - 1.1) LVIDd: 4.6 cm (3.9 - 5.3) LVPWd: 1.0 cm (0.6 - 1.1) IVSs: 1.4 cm LVIDs: 2.3 cm LVPWs: 1.7 cm Ao Diam: 3.2 cm (2.0 - 3.7) AV Cusp: 2.0 cm (1.5 - 2.6) LA Diam: 2.5 cm (2.7 - 3.8) MV EXCURSION: 13.883 mm (> 18.000) MV EF SLOPE: 130 mm/s (70 - 150) EPSS: 0.6 cm MV E Bennie: 0.63 m/s MV DecT: 125 ms MV A Bennie: 0.85 m/s MV E/A Ratio: 0.74 RAP: 5.00 mmHg RVSP: 10.57 mmHg FINDINGS -------- This was a technically adequate study. The left ventricular size is normal. Left ventricular wall thickness is normal. Overall left vent ricular systolic function is normal with, an EF between 55 - 60 %. The right ventricle is normal in size. The left atrial size is normal. The right atrial size is normal. The aortic valve is trileaflet and appears structurally normal. The mitral valve is normal. Mild mitral regurgitation is present. The tricuspid valve appears structurally normal. Mild tricuspid regurgitation present. Right vent ricular systolic pressure is normal at < 35 mmHg. There is no pulmonic regurgitation present. The aortic root size is normal. Normal inferior vena cava with normal inspiratory collapse consistent with estimated right atrial pre ssure of 5 mmHg. There is no pericardial effusion. CONCLUSIONS -------- 1. The left ventricular size is normal. 2. Left ventricular wall thickness is normal. 3. Overall left ventricular systolic function is normal with, an EF between 55 - 60 %. 4. Mild mitral regurgitation is present. 5. Mild tricuspid regurgitation present. 6. There is no pericardial effusion. GAS DISPENSER: Josie Swanson RDCS
[2021-12-11] MEDS: metFORMIN 500 MG TAB PO SCH (11:56)
[2021-12-11] MEDS: METOPROLOL TARTRATE 25 MG TAB PO SCH ×2 (11:56→21:16)
[2021-12-11] MEDS: LINAGLIPTIN 5 MG TABLET PO SCH (11:57)
[2021-12-11] MEDS: HEPARIN SODIUM,PORCINE/PF 5,000 UNIT/0.5 ML SYRINGE SQ SCH ×3 (11:57→23:29)
--- NOTE | 2021-12-11 12:44 | NM ---
EXAMINATION TYPE: NM stress lexiscan cardiolite DATE OF EXAM: 12/11/2021 COMPARISON: NONE HISTORY: Chest pain TECHNIQUE: After the intravenous administration of 9.8 mCi Tc 99m Sestamibi - Cardiolite resting SPE CT images acquired 55 minutes post injection. The patient received 0.4mg Lexiscan, 25.5 mCi Tc 99m Sestamibi - Stress images obtained [address] injection FINDINGS: Review of stress and rest SPECT images demonstrates some decreased activity along the anterior wall l eft ventricle and into the apex on stress as compared to rest images. Gated analysis shows normal wa ll motion with an estimated left ventricular ejection fraction of 71 %. IMPRESSION: Pharmacologically induced left ventricular myocardial ischemia. Consider echocardiographic correlatio n for elevated ejection fraction
--- NOTE | 2021-12-11 13:40 | P.PN ---
Subjective Progress Note Date: 12/11/21 Hospital course: Patient is a very pleasant 66-year-old female with a past medical history of [id number] diabetes mellitus, asthma, and hypertension. She presented to the emergency department with a chief complaint of thoracic back pain. Patient reported in addition to this back pain between her shoulder blades she also experienced approximately one week ago and episode of palpitations and tachycardia and was evaluated for this at that time with no significant abnormalities found. Patient states the pain in her back is described as just a generalized discomfort and denies anything making better or worse and denied any radiation of this pain states it's just a gnawing pain between her shoulder blades. She was seen and fully evaluated. She underwent cardiac workup with troponins trended all negative at less than 0.012. Chest x- ray was completed negative for acute cardiopulmonary process. D-dimer was negative. TSH normal findings. EKG revealed sinus tachycardia at 105 bpm with no noted T-wave or ST abnormalities showing no signs of acute ischemia. Patient underwent an echocardiogram which revealed normal EF between 55 and 60% with no significant valvular abnormalities. Patient underwent Lexiscan stress test which was positive for pharmacologically induced left ventricular myocardial ischemia. Plan is for patient to undergo cardiac cath tomorrow morning. Physical exam: Patient seen and fully evaluated at bedside upon return from [facility]. Patient was updated on Lexiscan results and plans for cardiology to take patient for cardiac cath tomorrow morning. Patient and her verbalized understanding and denied having any questions at this time. Patient currently reports complete resolution of this back pain but reports it has been waxing and waning throughout the day with last time being felt approximately a few hours ago. Patient remains on continuous telemetry monitoring and vital signs stable. Patient denies having any headache, lightheadedness, dizziness, shortness of breath, nausea, vomiting, neck pain, shoulder pain, chest pain, palpitations, or experiencing any numbness/tingling/weakness in her extremities. Vital signs reviewed and stable. General: Nontoxic, no distress and appears stated age. Derm: Skin warm and dry, normal coloration for ethnicity. Head: Atraumatic, normocephalic and symmetric. Eyes: EOMs intact, no lid lag, and anicteric sclera Mouth: no lip lesions, mucus membranes moist Cardiovascular: regular rate and rhythm with normal S1S2, no murmur, positive posterior tibial pulses bilaterally, and cap refill < 2 seconds. Lungs: Respirations even, regular, and unlabored on room air. Lungs CTA bilaterally, no rhonchi, no rales, no wheezing, and no accessory muscle usage. Abdominal: soft, nontender to palpation, no guarding, no appreciable organomegaly Ext: ROM intact. No gross muscle atrophy, no edema, no contractures Neuro: Speech clear, face symmetrical and CN II-XII grossly intact with no noted focal neuro deficits Psych: Alert and oriented to person, place, time, and situation. Appropriate and pleasant affect. Assessment and Plan of Care: Chest pain, rule out acute coronary event -Cardiology following, plans for cardiac cath tomorrow morning -Telemetry monitoring -Troponins negative -EKG showing sinus tachycardia at 105 bpm. -Echocardiogram which revealed normal EF between 55 and 60% with no significant valvular abnormalities. -Lexiscan stress test which was positive for pharmacologically induced left ventricular myocardial ischemia. -Cardiac diet, NPO at midnight -Aspirin, atorvastatin, and metoprolol -Continue heparin infusion. -Lipid profile pending. Hypertension -Monitor vital signs and continue daily medication regimen. Cny-sgrxeli-ioiuixcij diabetes mellitus Hold oral hypoglycemic medications in place patient on glycemic protocol with NovoLog sliding scale. Hyperlipidemia -Continue daily medication regimen. CODE STATUS: Full code DVT prophylaxis: Heparin Discussed with: Patient, patient's , and RN Anticipated discharge date: Clinical course to determine, likely 1-2 days pending results of cardiac cath tomorrow morning Anticipated discharge place: Home A total of 37 minutes was spent on the care of this complex patient more than 50% of the time was spent in counseling and care coordination. Russell Ferrari NP rendered care for this patient independently, reviewed the findings and plan as documented in the note above. I did not physically speak with or examine the patient on this date. Objective - Vital Signs Vital signs: Vital Signs Temp 97.5 F L 12/11/21 07:00 Pulse 78 12/11/21 07:00 Resp 16 12/11/21 07:00 BP 127/74 12/11/21 07:00 Pulse Ox 97 12/11/21 07:00 Intake & Output 12/10/21 12/11/21 12/11/21 18:59 06:59 18:59 Intake Total 118 Balance 118 Weight 87.09 kg Intake: Oral 118 Other: # Voids 1 1 # Bowel Movements 1 - Labs CBC & Chem 7: 12/11/21 05:15 12/11/21 05:15 Labs: Abnormal Lab Results - Last 24 Hours (Table) 12/11/21 12/11/21 12/11/21 Range/Units 05:15 05:15 05:15 RBC 3.99 L (4.10-5.20) X 10*6/uL Hgb 11.9 L (12.0-15.0) g/dL Hct 36.7 L (37.2-46.3) % MPV 8.8 L (9.5-12.2) fL BUN/Creatinine Ratio 20.50 H (12.00-20.00) Ratio Total Bilirubin 0.20 L (0.30-1.20) mg/dL Total Protein 5.6 L (6.2-8.2) g/dL Triglycerides 242.00 H (0.00-149.00) mg/dL VLDL Cholesterol, Calc 48.40 H (5.00-40.00) mg/dL
[2021-12-11 17:20] LABS: Glucose,Whole Blood 106 mg/dL (75-99)
[2021-12-11] MEDS: INSULIN ASPART (NovoLOG) 100 UNIT/ML VIAL SQ SCH ×2 (17:20→20:33)
[2021-12-11 20:07] LABS: Glucose,Whole Blood 128 mg/dL (75-99)
[2021-12-11] MEDS: ATORVASTATIN 10 MG TAB PO SCH (21:16)
[2021-12-11] MEDS: LORATADINE 10 MG TAB PO SCH (21:16)
[2021-12-11] MEDS: MONTELUKAST 10 MG TAB PO SCH (21:16)
[2021-12-11] MEDS: EZETIMIBE 10 MG TAB PO SCH (21:16)
[2021-12-12] MEDS: SODIUM CHLORIDE 0.9% 1,000 ML IV SCH (02:54)
[2021-12-12] MEDS: LEVOTHYROXINE 137 MCG TAB PO SCH (05:30)
[2021-12-12 05:31] LABS: Glucose,Whole Blood 112 mg/dL (75-99)
[2021-12-12] MEDS: ASPIRIN 81 MG PO SCH (05:31)
[2021-12-12] MEDS: METOPROLOL TARTRATE 25 MG TAB PO SCH (05:31)
[2021-12-12] MEDS: MULTIVITAMINS, THERA 1 EACH TAB PO SCH (05:31)
[2021-12-12] MEDS ORDERED: ASPIRIN 81 MG PO ONE (06:00)
[2021-12-12] MEDS ORDERED: ATORVASTATIN 80 MG TAB PO ONE (06:00)
[2021-12-12 06:13] LABS: Basophils # (A) 0.1 k/uL (0-0.2); Basophils % (A) 1 %; Eosinophils # (A) 0.3 k/uL (0-0.7); Eosinophils % (A) 3 %; HCT 44.5 % (34.0-46.0); HGB 14.2 gm/dL (11.4-16.0); Lymphocytes # (A) 2.8 k/uL (1.0-4.8); Lymphocytes % (A) 35 %; MCH 29.5 pg (25.0-35.0); MCHC 31.8 g/dL (31.0-37.0); MCV 92.7 fL (80.0-100.0); Mean Platelet Volume 6.6; Monocytes # (A) 0.4 k/uL (0-1.0); Monocytes % (A) 5 %; Neutrophils # (A) 4.3 k/uL (1.3-7.7); Neutrophils % (A) 54 %; Platelet Count 420 k/uL (150-450); RBC 4.81 m/uL (3.80-5.40); RDW 12.8 % (11.5-15.5); WBC 7.9 k/uL (3.8-10.6)
[2021-12-12 06:29] LABS: African American GFR (CKD) >90 (>60 ml/min/1.73 sqM); Anion Gap 6 mmol/L; Blood Urea Nitrogen 14 mg/dL (7-17); Calcium 10.2 mg/dL (8.4-10.2); Carbon Dioxide 26 mmol/L (22-30); Chloride 103 mmol/L (98-107); Glucose 103 mg/dL (74-99); Non-African American GFR(CKD) >90 (>60 ml/min/1.73 sqM); Potassium 4.3 mmol/L (3.5-5.1); Sodium 135 mmol/L (137-145)
[2021-12-12] MEDS ORDERED: HEPARIN SODIUM,PORCINE 2,500 UNIT in SODIUM CHLORIDE 0.9% 250 ML IRRIGATION PRN (07:00)
[2021-12-12] MEDS ORDERED: HEPARIN SODIUM,PORCINE 10,000 UNIT in SODIUM CHLORIDE 0.9% 1,000 ML IRRIGATION PRN (07:00)
[2021-12-12 07:22] VITALS: TEMP 98.3
[2021-12-12 07:31] LABS: Glucose,Whole Blood 116 mg/dL (75-99)
[2021-12-12] MEDS: SYMBICORT 80-4.5 MCG INHALER INHALATION SCH (08:56)
[2021-12-12] MEDS: LISINOPRIL-HCTZ 20-25 MG 1 EACH TAB PO SCH (09:22)
[2021-12-12] MEDS: INSULIN ASPART (NovoLOG) 100 UNIT/ML VIAL SQ SCH ×2 (09:22→14:39)
[2021-12-12] MEDS: COLESEVELAM 625 MG TAB PO SCH (09:22)
[2021-12-12] MEDS: HEPARIN SODIUM,PORCINE/PF 5,000 UNIT/0.5 ML SYRINGE SQ SCH ×2 (09:22→16:55)
[2021-12-12] MEDS ORDERED: LIDOCAINE 1% INJ 10MG/ML (20 ML MDV) ONE (10:06)
[2021-12-12] MEDS ORDERED: VERAPAMIL 2.5 MG/ML 2 ML AMP ONE (10:06)
[2021-12-12] MEDS ORDERED: SODIUM CHLORIDE 0.9% 1,000 ML IV ONE (10:22)
[2021-12-12] MEDS ORDERED: MIDAZOLAM 2 MG/2 ML VIAL IVP ONE (10:59)
[2021-12-12] MEDS ORDERED: LIDOCAINE 1% INJ 10MG/ML (20 ML MDV) SQ ONE (11:03)
[2021-12-12] MEDS ORDERED: HEPARIN SODIUM 1,000 UN/ML (10ML VL) ONE (11:05)
[2021-12-12] MEDS ORDERED: VERAPAMIL SYRINGE (5 MG/10 ML) INTRAARTER ONE (11:07)
[2021-12-12] MEDS ORDERED: HEPARIN SODIUM 1,000 UN/ML (10ML VL) IVP ONE (11:08)
[2021-12-12] MEDS ORDERED: IOPAMIDOL-370 100ML BTL INJ ONE (11:20)
[2021-12-12] MEDS ORDERED: SODIUM CHLORIDE 0.9% 1,000 ML IV SCH (11:45)
[2021-12-12 11:48] LABS: Glucose,Whole Blood 104 mg/dL (75-99)
--- NOTE | 2021-12-12 12:26 | CC ---
CARDIAC CATHETERIZATION REPORT DATE OF SERVICE: 12/12/2021 PROCEDURE: Left heart catheterization and coronary angiography. PERFORMED BY: Dr. Margarito Ty. Moderate conscious sedation time was 19 minutes. Patient was administered Versed. Oxygen saturation, hemodynamics and EKG were monitored closely. CLINICAL INFORMATION: Maura Dillon is a 66-year-old lady with diabetes, hypertension and hyperlipidemia who came into the hospital with episode of chest pain, had a stress test which revealed possible ischemia in the anterior wall, and therefore advised cardiac catheterization after due discussion regarding risks, benefits and options. PROCEDURE NOTE: Under strict aseptic precautions and local anesthesia, a 6-Wolof introducer was placed in the right radial artery. Using JL3.5 and JR4 catheters I performed coronary angiography, and the same right catheter was used to check LV pressures. Patient tolerated procedure well without complication. The sheath was taken out and TR band applied as per protocol, with the saturation in the fingers of the right hand of more than 95%. Patient tolerated the procedure well. There were no complications. CARDIAC CATHETERIZATION FINDINGS: The left ventricular end-diastolic pressure was 12 mmHg without any gradient across aortic valve. CORONARY ANGIOGRAPHY FINDINGS: RIGHT CORONARY ARTERY: Large dominant vessel. No significant disease. Distally it bifurcates into smaller PDA, larger PLV. Minor irregularities. No significant disease. LEFT MAIN CORONARY ARTERY: Long patent disease-free vessel that bifurcates into LAD and circumflex. Left main itself is free of significant disease. LEFT ANTERIOR DESCENDING CORONARY ARTERY: Good-caliber vessel extends along the anterior wall, gives off two diagonal branches in the proximal portion, several small septal branches, and another diagonal branch in the mid portion. Then the distal LAD curves over the apex to supply the inferoapical portion of left ventricle. No significant disease in the LAD system. LEFT POSTERIOR CIRCUMFLEX CORONARY ARTERY: Technically a nondominant vessel, it gives off a high obtuse marginal, almost like a ramus, has no significant disease. Second obtuse marginal is free of significant disease, and continuation of circumflex is small in caliber. Nondominant circumflex, fair distribution, high first obtuse marginal; almost looks like a ramus. No significant disease. Minor irregularities. LEFT VENTRICULOGRAM: Left ventriculogram was not performed. FINAL IMPRESSION: This patient has a right-dominant system, normal filling pressures, no gradient. No significant CAD. Findings were discussed with the patient and her family. She will be discharged later on today and we will pursue medical therapy, including increase in atorvastatin from 10 to 20 mg daily. I will see her in the office later on this week on Saturday. Discharge instructions regarding activity, diet and medications were given. She will follow up with her PCP, Dr. Vidal, in one week. JIN / GION: [id number] /
[2021-12-12 13:42] VITALS: BP 126/81; PULSE 77; RESP 18
--- NOTE | 2021-12-12 16:45 | P.DS ---
Providers Date of admission: 12/11/21 14:56 Expected date of discharge: 12/12/21 Attending physician: Steffanie Cooper MD Consults: 12/09/21 21:01 Consult Physician Urgent Consulting Provider: [facility] Consult Reason/Comments: Tachycardia, anginal equivalent Do you want consulting provider notified?: Yes Primary care physician: Jorge Fritz [facility] Hospital Course: Discharge Diagnosis: Chest pain, acute coronary event ruled out Hypertension Mqw-yrvstfi-ojmduqvhr diabetes mellitus Hyperlipidemia, triglycerides 242 and VLDL 48.40 daily medication and atorvastatin dose increased to 20 mg nightly. Hospital Course: Patient is a very pleasant 66-year-old female with a past medical history of swj-[id number] diabetes mellitus, asthma, and hypertension. She presented to the emergency department with a chief complaint of thoracic back pain. Patient reported in addition to this back pain between her shoulder blades she also experienced approximately one week ago and episode of palpitations and tachycardia and was evaluated for this at that time with no significant abnormalities found. Patient states the pain in her back is described as just a generalized discomfort and denies anything making better or worse and denied any radiation of this pain states it's just a gnawing pain between her shoulder blades. She was seen and fully evaluated. She underwent cardiac workup with troponins trended all negative at less than 0.012. Chest x- ray was completed negative for acute cardiopulmonary process. D-dimer was negative. TSH normal findings. EKG revealed sinus tachycardia at 105 bpm with no noted T-wave or ST abnormalities showing no signs of acute ischemia. Patient underwent an echocardiogram which revealed normal EF between 55 and 60% with no significant valvular abnormalities. Patient underwent Lexiscan stress test which was positive for pharmacologically induced left ventricular myocardial ischemia. Patient was again monitored overnight and continued to have complete resolution of chest pain/back pain. Lipid profile revealed elevated trigl ycerides of 242 and VLDL of 48.40, atorvastatin dose increased to 20 mg nightly. She underwent cardiac catheterization which revealed patient had right sided dominant system with normal filling pressures and no significant coronary artery disease. Cardiology recommending patient follow-up outpatient in the office and added metoprolol 25 mg twice a day to daily home medication regimen. Patient is medically stable for discharge at this time. Cardiac cath right wrist site intact with no signs of redness, hematoma, bruising, bleeding, or drainage. Patient given post cardiac cath instructions and all questions answered. Patient is medically stable for discharge at this time and to follow up outpatient with her PCP and cardiology. Physical examination: Vital signs reviewed and stable. General: Nontoxic, no distress and appears stated age. Derm: Skin warm and dry, normal coloration for ethnicity. Head: Atraumatic, normocephalic and symmetric. Eyes: EOMs intact, no lid lag, and anicteric sclera Mouth: no lip lesions, mucus membranes moist Cardiovascular: regular rate and rhythm with normal S1S2, no murmur, positive posterior tibial pulses bilaterally, and cap refill < 2 seconds. Lungs: Respirations even, regular, and unlabored on room air. Lungs CTA bilaterally, no rhonchi, no rales, no wheezing, and no accessory muscle usage. Abdominal: soft, nontender to palpation, no guarding, no appreciable organomegaly Ext: ROM intact. No gross muscle atrophy, no edema, no contractures Neuro: Speech clear, face symmetrical and CN II-XII grossly intact with no noted focal neuro deficits Psych: Alert and oriented to person, place, time, and situation. Appropriate and pleasant affect. A total of 40 minutes of time were spent preparing this complex discharge summary. Pt was discharged on 12/12/21 at 4:47 PM. Patient Condition at Discharge: Stable Plan - Discharge Summary New Discharge Prescriptions: New Metoprolol Tartrate [Lopressor] 25 mg PO BID 60 Days #120 tab Atorvastatin [Lipitor] 20 mg PO HS 90 Days #90 tab Continue Montelukast [Singulair] 10 mg PO HS ALPRAZolam [Xanax] 0.25 mg PO DAILY PRN PRN Reason: Anxiety Budesonide/Formoterol Fumarate [Symbicort 80-4.5 Mcg Inhaler] 2 puff INHALATION RT-BID Levothyroxine Sodium [Synthroid] 137 mcg PO DAILY Colesevelam [Welchol] 1,875 mg PO BID Lisinopril-Hctz 20-25 mg [Zestoretic 20-25] 1 tab PO DAILY sitaGLIPtin [Januvia] 100 mg PO DAILY metFORMIN HCL [Glucophage] 1,000 mg PO BID Albuterol Sulfate [Proair Hfa] 2 puff INHALATION RT-Q4H PRN PRN Reason: Wheezing [place]-3 Fatty Acids/Fish Oil [Fish Oil 1,000 mg Softgel] 2 cap PO BID Aspirin [Adult Low Dose Aspirin EC] 81 mg PO HS Ascorbic Acid [Vitamin C] 500 mg PO HS Ezetimibe [Zetia] 10 mg PO HS Albuterol Nebulized [Ventolin Nebulized] 2.5 mg INHALATION RT-Q6H PRN PRN Reason: Shortness Of Breath Fluticasone Nasal [place] [Flonase Nasal [place]] 1 spray EA NOSTRIL DAILY PRN PRN Reason: Allergy Symptoms Levocetirizine Dihydrochloride [Xyzal] 5 mg PO HS Multivitamins, Thera [Multivitamin (formulary)] 1 tab PO DAILY Discontinued Atorvastatin [Lipitor] 10 mg PO HS Discharge Medication List ALPRAZolam [Xanax] 0.25 mg PO DAILY PRN 12/13/17 [History] Albuterol Sulfate [Proair Hfa] 2 puff INHALATION RT-Q4H PRN 12/13/17 [History] Aspirin [Adult Low Dose Aspirin EC] 81 mg PO HS 12/13/17 [History] Budesonide/Formoterol Fumarate [Symbicort 80-4.5 Mcg Inhaler] 2 puff INHALATION RT-BID 12/13/17 [History] Colesevelam [Welchol] 1,875 mg PO BID 12/13/17 [History] Levothyroxine Sodium [Synthroid] 137 mcg PO DAILY 12/13/17 [History] Lisinopril-Hctz 20-25 mg [Zestoretic 20-25] 1 tab PO DAILY 12/13/17 [History] Montelukast [Singulair] 10 mg PO HS 12/13/17 [History] [place]-3 Fatty Acids/Fish Oil [Fish Oil 1,000 mg Softgel] 2 cap PO BID 12/13/17 [History] metFORMIN HCL [Glucophage] 1,000 mg PO BID 12/13/17 [History] sitaGLIPtin [Januvia] 100 mg PO DAILY 12/13/17 [History] Albuterol Nebulized [Ventolin Nebulized] 2.5 mg INHALATION RT-Q6H PRN 12/04/21 [History] Ascorbic Acid [Vitamin C] 500 mg PO HS 12/04/21 [History] Ezetimibe [Zetia] 10 mg PO HS 12/04/21 [History] Fluticasone Nasal [place] [Flonase Nasal [place]] 1 spray EA NOSTRIL DAILY PRN 12/04/21 [History] Levocetirizine Dihydrochloride [Xyzal] 5 mg PO HS 12/04/21 [History] Multivitamins, Thera [Multivitamin (formulary)] 1 tab PO DAILY 12/04/21 [History] Atorvastatin [Lipitor] 20 mg PO HS 90 Days #90 tab 12/12/21 [Rx] Metoprolol Tartrate [Lopressor] 25 mg PO BID 60 Days #120 tab 12/12/21 [Rx] Follow up Appointment(s)/Referral(s): Jonatan Ty MD [STAFF PHYSICIAN] - 1 Week (Office will call with appointment time and date.) Jorge Vidal III, MD [Primary Care Provider] - 1-2 days Patient Instructions/Handouts: Metoprolol (By mouth), After Radial Heart Catheterization (GEN) Activity/Diet/Wound Care/Special Instructions: Activity: As tolerated. Take breaks as needed. Diet: Heart healthy and carb consistent diet. Avoid salts, or foods with hidden salts such as canned or boxed foods and frozen dinners. Extra salt makes your heart work harder and traps the fluid in your body for longer. Special Instructions: Take all of your medications as directed and remember to keep all of your doctor's appointments and follow-up as needed. Thank you for allowing us to participate in your care, it was truly a pleasure having you for our patient!!! Discharge Disposition: HOME SELF-CARE
--- NOTE | 2021-12-13 08:36 | ECHOS ---
Stress Test Results/Findings: Exam Performed: NM stress lexiscan cardiolite Exam Date: 12/11/21 Reason for Exam: TACHYCARDIA Height: 5 ft 6 in Weight: 87.09 kg Protocol: LEXISCAN Stage: NA Duration of Exercise: 5 MINUTE INFUSION Resting Heart Rate: 84 Resting Blood Pressure: 146/76 Maximum Achieved Heart Rate: 137 Maximum Achieved Blood Pressure: 174/84 85% PMHR: 132 100% PMHR: 155 METS: NA Technologist Comment: Stress Test Results/Findings: This is a 66-year-old female with history of hypertension, diabetes and hypercholesterolemia being evaluated for cardiac status. Stress data: Baseline EKG showed sinus rhythm with normal NM interval and QRS duration. Blood pressure at rest is 146/76 with pulse rate of 84. A standard dose of Lexiscan was infused. EKGs taken during and after infusion did not reveal any significant changes from the baseline. Patient developed headache which was relieved with IV Aminophyllin. Final impression: #1. Negative Lexiscan stress test #2. Report on the nuclear images to be provided by the radiologist. ESEQUIEL
[2021-12-13] MEDS ORDERED: ASPIRIN 81 MG PO SCH (09:00)
[2021-12-13] MEDS ORDERED: ATORVASTATIN 10 MG TAB PO SCH (21:00)
[2021-12-13] MEDS ORDERED: ATORVASTATIN 20 MG TAB PO SCH (21:00)
== END 2021-12-12 18:01 | disposition home or self-care (01) | DRG 287 ==
LOC: EC 19:27 → 6NMEDSUR 21:01 → OBSVTOIN 12-11 14:56
PROVIDERS: ADMIT Internal Medicine; ATTEND Internal Medicine
PROC: B2111ZZ Fluoroscopy of Multiple Coronary Arteries using Low Osmolar Contrast (ICD-10-PCS; 2021-12-12)
PROC: 4A023N7 Measurement of Cardiac Sampling and Pressure, Left Heart, Percutaneous Approach (ICD-10-PCS; principal; 2021-12-12 12:00)
DX: R07.9 Chest pain, unspecified (principal); E11.9 Type 2 diabetes mellitus without complications; E78.5 Hyperlipidemia, unspecified; E78.1 Pure hyperglyceridemia; R00.0 Tachycardia, unspecified; E83.52 Hypercalcemia; I08.1 Rheumatic disorders of both mitral and tricuspid valves; F41.9 Anxiety disorder, unspecified; M54.6 Pain in thoracic spine; I10 Essential (primary) hypertension; J45.909 Unspecified asthma, uncomplicated; Z79.51 Long term (current) use of inhaled steroids; Z79.82 Long term (current) use of aspirin; Z79.84 Long term (current) use of oral hypoglycemic drugs; Z79.890 Hormone replacement therapy; Z79.899 Other long term (current) drug therapy; Z82.0 Family history of epilepsy and other diseases of the nervous system; Z82.3 Family history of stroke; Z83.3 Family history of diabetes mellitus; Z90.710 Acquired absence of both cervix and uterus; Z96.653 Presence of artificial knee joint, bilateral; Z88.8 Allergy status to other drugs, medicaments and biological substances; Z91.018 Allergy to other foods; Z87.19 Personal history of other diseases of the digestive system
CPT/HCPCS: 36415; 71046; 71275; 78452; 80048; 80053; 80061; 83735; 84443; 84484; 85025; 85379; 85610; 85730; 93005; 93017; 93306; 93458; 94640; 96360; 99285

== ENCOUNTER → 2022-05-28 | Outpatient (CLI) | payer MEDICARE, BC ==
--- NOTE | 2022-05-28 13:29 | MM ---
Reason for Exam: Screening (asymptomatic). Last mammogram was performed 1 year(s) and 1 month(s) ago. Patient History: Menarche at age 14. First Full-Term at age 25. Left ovary removed at age 52. Right ovary removed at age 52. Hysterectomy at age 52. Postmenopausal. Paternal grandmother had breast cancer, age 70. Maternal aunt had breast cancer, age 40. Risk Values: [place] 5 year model risk: 1.5%. NCI Lifetime model risk: 5.6%. Prior Study Comparison: 04/03/2019 Bilateral Screening Mammogram, [facility]. 05/03/2020 Bilateral Screening Mammogram, [facility]. 05/25/2021 Bilateral Screening Mammogram, [facility]. Tissue Density: There are scattered fibroglandular densities. Findings: Analyzed By CAD. Benign-appearing bilateral axillary lymph nodes are redemonstrated. Occasional scattered tiny benign appearing round calcifications bilaterally redemonstrated. There is no suspicious group of microcalcifications or new suspicious mass in either breast. Overall Assessment: Benign, BI-RAD 2 Management: Screening Mammogram of both breasts in 1 year. A clinical breast exam by your physician is recommended on an annual basis and results should be correlated with mammographic findings. Electronically signed and approved by: Alex Schuster M.D.
== END | disposition home or self-care (01) ==
LOC: RADMAMWWP 11:11
PROVIDERS: ATTEND Family Medicine
DX: Z12.31 Encounter for screening mammogram for malignant neoplasm of breast (principal); Z78.0 Asymptomatic menopausal state; Z80.3 Family history of malignant neoplasm of breast
CPT/HCPCS: 77063; 77067

== ENCOUNTER → 2022-11-12 | Outpatient (CLI) | payer MEDICARE, BC ==
[2022-11-12 18:19] LABS: Basophils # (A) 0.05 X 10*3/uL (0.00-0.10); Basophils % (A) 0.5 %; HCT 42.5 % (37.2-46.3); HGB 13.4 g/dL (12.0-15.0); Immature Grans, Automated 0.3 %; Lymphocytes # (A) 1.33 X 10*3/uL (0.90-5.00); Lymphocytes % (A) 13.4 %; MCH 28.7 pg (27.0-32.0); MCHC 31.5 g/dL (32.0-37.0); Mean Platelet Volume 8.7 fL (9.5-12.2); Monocytes # (A) 0.63 X 10*3/uL (0.20-1.00); Monocytes % (A) 6.4 %; NRBC Per 100 WBC 0 /100 WBCS (0.0-0.0); Neutrophils # (A) 7.67 X 10*3/uL (1.80-7.70); Neutrophils % (A) 77.4 %; Platelet Count 379 X 10*3/uL (140-440); RBC 4.67 X 10*6/uL (4.10-5.20); RDW 12.6 % (11.5-14.5); WBC 9.91 X 10*3/uL (4.50-10.00)
[2022-11-12 19:15] LABS: ALT 38 U/L (8-44); AST 24 U/L (13-35); African American GFR (CKD) 102.3 (60.0-200.0); Albumin 4.2 g/dL (3.8-4.9); Albumin/Globulin Ratio 1.87 (1.60-3.17); Alkaline Phosphatase 83 U/L (41-126); BUN/Creat Ratio 17.25 Ratio (12.00-20.00); Blood Urea Nitrogen 12.3 mg/dL (9.0-27.0); Calcium 10.5 mg/dL (8.7-10.3); Carbon Dioxide 25.7 mmol/L (20.0-27.5); Chloride 102 mmol/L (96-109); Chol/HDL Ratio 2.13 Ratio; Globulin 2.3 g/dL (1.6-3.3); Glucose 111 mg/dL (70-110); LDL Cholesterol,Calculated 42.7 mg/dL (0.0-131.0); Non-African American GFR(CKD) 88.3 (60.0-200.0); Potassium 4.1 mmol/L (3.5-5.5); Sodium 139 mmol/L (135-145); Total Protein 6.5 g/dL (6.2-8.2)
== END | disposition home or self-care (01) ==
LOC: LABWHC1 10:38
PROVIDERS: ATTEND Family Medicine
DX: E11.9 Type 2 diabetes mellitus without complications (principal); E55.9 Vitamin D deficiency, unspecified; R00.0 Tachycardia, unspecified
CPT/HCPCS: 36415; 80053; 80061; 82306; 83036; 84443; 85025

== ENCOUNTER → 2022-11-28 | Outpatient (CLI) | payer MEDICARE, BC ==
--- NOTE | 2022-11-28 19:19 | CT ---
EXAMINATION TYPE: CT abdomen pelvis wo con CT DLP: 915.2 mGycm, Automated exposure control for dose reduction was used. DATE OF EXAM: 11/28/2022 4:39 PM COMPARISON: CT abdomen pelvis most recent from 2018. CLINICAL INDICATION:Female, 67 years old with history of R50.9, M54.59, R31.9; bilateral flank pain x 2 weeks. TECHNIQUE: Axial CT of the abdomen and pelvis. Sagittal and coronal reformats were created on a [employer] workstation. Contrast used: None. Oral contrast used: without Oral Contrast FINDINGS: LOWER CHEST: Unremarkable ABDOMEN LIVER: Unremarkable GALLBLADDER AND BILE DUCTS: Unremarkable. PANCREAS: Unremarkable. SPLEEN: Within normal limits for size. ADRENAL GLANDS: Stable left adenomatous hypertrophy changes of the adrenal gland. Right adrenal gland is unremarkable. KIDNEYS AND URETERS: No evidence of hydronephrosis or renal calculus. There is a duplicated left mauro ecting system. No perinephric fluid collections. Perinephric fat stranding is unchanged from prior in 2018. PELVIS BLADDER: Unremarkable REPRODUCTIVE: The uterus is surgically absent. ABDOMEN & PELVIS STOMACH AND BOWEL: No evidence of bowel obstruction. Appendix is normal. Scattered colonic diverticul a appear. PERITONEUM/RETROPERITONEUM: No evidence of pneumoperitoneum or free fluid. VASCULATURE: No evidence of aortic aneurysm. MUSCULOSKELETAL: No acute osseous abnormalities LYMPH NODES: No gross evidence for lymphadenopathy. SOFT TISSUE/ABDOMINAL WALL: Unremarkable IMPRESSION: 1. 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 No obstructive u ropathy or renal calculus. 2. No evidence for acute abdominal process. 3. Colonic diverticulosis. 4. No perinephric fluid
== END | disposition home or self-care (01) ==
LOC: RADCTMAIN 16:20
PROVIDERS: ATTEND Family Medicine
DX: K57.30 Diverticulosis of large intestine without perforation or abscess without bleeding (principal); R50.9 Fever, unspecified; M54.59 Other low back pain; R31.9 Hematuria, unspecified
CPT/HCPCS: 74176

== ENCOUNTER → 2023-02-14 | Outpatient (CLI) | payer MEDICARE, BC | END | disposition home or self-care (01) | LOC: LABWHC1 08:48 | PROVIDERS: ATTEND Family Medicine | DX: E11.9 Type 2 diabetes mellitus without complications (principal); E55.9 Vitamin D deficiency, unspecified | CPT/HCPCS: 36415; 82306; 83036 ==

== ENCOUNTER 2023-05-15 09:19 | Day surgery (SDC) | payer MEDICARE, BC ==
[2023-05-10 15:56] VITALS: BMI 31.4
[~2023-05-15 09:19] MED LIST: LACTATED RINGERS 1,000 ML IV SCH; LIDOCAINE 1% (10MG/ML) FOR IV START INTRADERMA PRN
[2023-05-15 10:14] VITALS: TEMP 98
[2023-05-15 10:16] LABS: Glucose,Whole Blood 136 mg/dL (70-110)
[2023-05-15] MEDS ORDERED: PROPOFOL 10 MG/ML 20 ML VIAL IV ONE (10:32)
--- NOTE | 2023-05-15 10:48 | P.PCN ---
Date of Procedure: 05/15/23 Procedure(s) Performed: BRIEF HISTORY: Patient is a 67-year-old pleasant white female scheduled for an elective colonoscopy as a part of screening for colon cancer. PROCEDURE PERFORMED: Colonoscopy. PREOPERATIVE DIAGNOSIS: Screening for colon cancer. IV sedation per Anesthesia. PROCEDURE: After informed consent was obtained, the patient, was brought into the endoscopy unit. IV sedation was administered by Anesthesia under continuous monitoring. Digital rectal examination was normal. Initially the Olympus CF-160 flexible video colonoscope was then inserted in the rectum, gradually advanced into the cecum without any difficulty. Careful examination was performed as the scope was gradually being withdrawn. Ileocecal valve and the appendiceal orifice were visualized and appeared normal. Prep was excellent. Mucosa of the cecum, ascending colon, transverse colon, descending colon, sigmoid colon, and rectum appeared normal. Scattered sigmoid diverticulosis but Retroflexion was performed in the rectum and no lesions were seen. The patient tolerated the procedure well. IMPRESSION: Normal-appearing colon from rectum to cecum with no evidence of colorectal neoplasia Scattered sigmoid diverticulosis . RECOMMENDATIONS: Findings of this examination were discussed with the patient as well as a family. She was advised to have a repeat screening colonoscopy in 10 years.
[2023-05-15 13:15] VITALS: BP 178/78; PULSE 71; RESP 18
== END 2023-05-15 11:30 | disposition home or self-care (01) ==
LOC: ORWHC2ENDO 09:19
PROVIDERS: ATTEND Internal Medicine Gastroenterology
DX: Z12.11 Encounter for screening for malignant neoplasm of colon (principal); K57.30 Diverticulosis of large intestine without perforation or abscess without bleeding; I10 Essential (primary) hypertension; E78.5 Hyperlipidemia, unspecified; J45.909 Unspecified asthma, uncomplicated; E07.9 Disorder of thyroid, unspecified; E11.9 Type 2 diabetes mellitus without complications; F41.9 Anxiety disorder, unspecified; Z79.890 Hormone replacement therapy; Z88.9 Allergy status to unspecified drugs, medicaments and biological substances; Z91.048 Other nonmedicinal substance allergy status; Z79.52 Long term (current) use of systemic steroids; Z79.51 Long term (current) use of inhaled steroids; Z79.899 Other long term (current) drug therapy
CPT/HCPCS: J2704; G0121

== ENCOUNTER → 2023-05-29 | Outpatient (CLI) | payer MEDICARE, BC ==
--- NOTE | 2023-05-30 20:39 | MM ---
Reason for Exam: Screening (asymptomatic). Last screening mammogram was performed 12 month(s) ago. Patient History: Menarche at age 14. First Full-Term at age 25. Left ovary removed at age 52. Right ovary removed at age 52. Hysterectomy at age 52. Postmenopausal. Paternal grandmother had breast cancer, age 70. Maternal aunt had breast cancer, age 40. Risk Values: Haleigh 5 year model risk: 1.5%. NCI Lifetime model risk: 5.4%. Prior Study Comparison: 05/03/2020 Bilateral Screening Mammogram, [facility]. 05/25/2021 Bilateral Screening Mammogram, [facility]. 05/28/2022 Bilateral MG 3D screening mammo w/cad, [facility]. Tissue Density: There are scattered fibroglandular densities. Findings: Analyzed By CAD. There is no suspicious group of microcalcifications or new suspicious mass in either breast. Overall Assessment: Negative, BI-RAD 1 Management: Screening Mammogram of both breasts in 1 year. . Patient should continue monthly self-breast exams. A clinical breast exam by your physician is recommended on an annual basis. This exam should not preclude additional follow-up of suspicious palpable abnormalities. Note on Haleigh scores and lifetime risk: 1. A Haleigh score greater than 3% is considered moderate risk. If this is the case, consider specialist referral to assess eligibility for a risk reducing agent. 2. If overall lifetime risk for the development of breast cancer is 20% or higher, the patient may qualify for future screening with alternating mammogram and breast MRI. Electronically signed and approved by: Sajan Chen M.D. Radiologist
== END | disposition home or self-care (01) ==
LOC: RADMAMWWP 12:54
PROVIDERS: ATTEND Family Medicine
DX: Z12.31 Encounter for screening mammogram for malignant neoplasm of breast (principal); Z78.0 Asymptomatic menopausal state; Z80.3 Family history of malignant neoplasm of breast
CPT/HCPCS: 77063; 77067

== ENCOUNTER → 2023-08-13 | Outpatient (CLI) | payer MEDICARE, BC ==
--- NOTE | 2023-08-13 17:16 | US ---
EXAMINATION TYPE: US kidneys/renal and bladder DATE OF EXAM: 08/13/2023 COMPARISON: CT 11/28/2022 CLINICAL INDICATION: Female, 68 years old with history of R10.9 ABDOMINAL PAIN; Pt states right flank pain on/off x 8 months EXAM MEASUREMENTS: Right Kidney: 10.4 x 5.1 x 4.7 cm Left Kidney: 11.4 x 4.5 x 4.3 cm No hydronephrosis seen on either side. Right Kidney: Echogenic lesion lateral/lower pole ?angiomyolipoma= 0.8 x 0.6 x 0.7 cm Left Kidney: Lobulated contour Bladder: wnl Bilateral Jets seen: Yes Incidental echogenic appearance to the liver parenchyma. IMPRESSION: 1. No hydronephrosis. 2. An indeterminate echogenic cortical lesion lower pole right kidney measuring 8 mm. No correlate wa s seen on the patient's 11/28/2022 CT. 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 Recommend 6 month follow-up ultrasound to reassess. 3. At least moderate hepatic steatosis incidentally seen. Appropriate clinical management advised.
== END | disposition home or self-care (01) ==
LOC: RADUSWWP 15:33
PROVIDERS: ATTEND Family Medicine
DX: R10.9 Unspecified abdominal pain (principal)
CPT/HCPCS: 76770

== ENCOUNTER → 2023-08-16 | Outpatient (CLI) | payer MEDICARE, BC ==
--- NOTE | 2023-08-16 10:11 | US ---
EXAMINATION TYPE: US gallbladder DATE OF EXAM: 08/16/2023 COMPARISON: 11/28/2022 CLINICAL INDICATION: Female, 68 years old with history of R10.9 AB PAIN WITH RADIATION TO BACK; and a nd back pain, recent UTI's TECHNIQUE: Multiple sonographic images of the right upper quadrant are obtained. FINDINGS: EXAM MEASUREMENTS: Liver Length: 18.7 cm Gallbladder Wall: 0.2 cm CBD: 0.6 cm Right Kidney: 9.5 x 3.8 x 4.6 cm Pancreas: wnl Liver: wnl Gallbladder: wnl Evidence for sonographic Arcos's sign: no CBD: wnl Right Kidney: 1.0 x 0.9 x 0.8cm hyperechoic focus without correlate on prior CT 11/28/2022 IMPRESSION: 1. No evidence for obstructive uropathy. 2. Right renal cortical calcification 3.
== END | disposition home or self-care (01) ==
LOC: RADUSWWP 08:57
PROVIDERS: ATTEND Family Medicine
DX: N28.89 Other specified disorders of kidney and ureter (principal); R10.9 Unspecified abdominal pain
CPT/HCPCS: 76705

== ENCOUNTER → 2023-08-23 | Outpatient (CLI) | payer MEDICARE, BC | END | disposition home or self-care (01) | LOC: LABWHC1 10:38 | PROVIDERS: ATTEND Family Medicine | DX: E11.9 Type 2 diabetes mellitus without complications (principal) | CPT/HCPCS: 36415; 83036 ==

== ENCOUNTER → 2023-09-12 | Outpatient (CLI) | payer MEDICARE, BC ==
[2023-09-12 11:32] LABS: African American GFR (CKD) >90 (>60 ml/min/1.73 sqM); Blood Urea Nitrogen 16 mg/dL (7-17); Non-African American GFR(CKD) 88 (>60 ml/min/1.73 sqM)
--- NOTE | 2023-09-12 12:35 | CT ---
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 TECHNIQUE: Helical acquisition of images was performed from the lung bases through the top of iliac crest to include entire abdomen. CONTRAST: Performed with Oral Contrast and without and with IV Contrast, patient injected with 100 ml mL of Iso delvin 300. FINDINGS: LUNG BASES: No significant abnormality is appreciated. LIVER/GB: No significant abnormality is appreciated. PANCREAS: No significant abnormality is seen. SPLEEN: No significant abnormality is seen. ADRENALS: Asymmetric thickening to left adrenal gland. KIDNEYS: No renal stones seen bilaterally. Postcontrast images show symmetric cortical medullary upta ke and excretion without hydronephrosis. No suspicious solid or cystic renal mass identified on this study. BOWEL: The oral contrast does not reach colonic level. No abnormal small or large bowel dilatation. LYMPH NODES: No significant abnormality is seen. OSSEOUS STRUCTURES: No significant abnormality is seen. FREE AIR: No free air is visualized. OTHER: None IMPRESSION: No concerning mass or adenopathy. No acute findings present.
== END | disposition home or self-care (01) ==
LOC: RADCTMAIN 10:44
PROVIDERS: ATTEND Urology
DX: D41.01 Neoplasm of uncertain behavior of right kidney (principal)
CPT/HCPCS: 82565; 84520; 74170; 36415; Q9967

== ENCOUNTER → 2023-11-19 | Outpatient (CLI) | payer MEDICARE, BC ==
[2023-11-19 15:40] LABS: Basophils # (A) 0.06 X 10*3/uL (0.00-0.10); Basophils % (A) 0.8 %; Eosinophils # (A) 0.19 X 10*3/uL (0.04-0.35); Eosinophils % (A) 2.7 %; HCT 43.7 % (37.2-46.3); HGB 14.2 g/dL (12.0-15.0); Lymphocytes # (A) 1.96 X 10*3/uL (0.90-5.00); Lymphocytes % (A) 27.5 %; MCHC 32.5 g/dL (32.0-37.0); MCV 92.4 FL (80.0-97.0); Mean Platelet Volume 9.1 FL (9.5-12.2); Monocytes # (A) 0.43 X 10*3/uL (0.20-1.00); NRBC Per 100 WBC 0 X 10*3/uL (0.00-0.01); Neutrophils # (A) 4.46 X 10*3/uL (1.80-7.70); Neutrophils % (A) 62.7 %; Platelet Count 434 X 10*3/uL (140-440); RBC 4.73 X 10*6/uL (4.10-5.20); RDW 12.8 % (11.5-14.5); WBC 7.12 X 10*3/uL (4.50-10.00)
[2023-11-19 16:34] LABS: Chol/HDL Ratio 2.48 Ratio; LDL Cholesterol,Calculated 60.9 mg/dL (0.0-131.0)
[2023-11-19 16:35] LABS: ALT 22 U/L (8-44); AST 21 U/L (13-35); Albumin 4.3 g/dL (3.8-4.9); Albumin/Globulin Ratio 1.72 Ratio (1.60-3.17); Alkaline Phosphatase 86 U/L (41-126); BUN/Creat Ratio 16.75 Ratio (12.00-20.00); Blood Urea Nitrogen 13.4 mg/dL (9.0-27.0); Calcium 10.7 mg/dL (8.7-10.3); Carbon Dioxide 25.7 mmol/L (21.6-31.8); Chloride 102 mmol/L (96-109); Globulin 2.5 g/dL (1.6-3.3); Glucose 115 mg/dL (70-110); Potassium 4.4 mmol/L (3.5-5.5); Sodium 140 mmol/L (135-145); Total Bilirubin 0.3 mg/dL (0.3-1.2); Total Protein 6.8 g/dL (6.2-8.2)
== END | disposition home or self-care (01) ==
LOC: LABWHC1 09:46
PROVIDERS: ATTEND Nurse Practitioner
DX: Z00.00 Encounter for general adult medical examination without abnormal findings (principal); E11.9 Type 2 diabetes mellitus without complications; Z68.31 Body mass index [BMI] 31.0-31.9, adult; E78.00 Pure hypercholesterolemia, unspecified; E03.9 Hypothyroidism, unspecified; E55.9 Vitamin D deficiency, unspecified
CPT/HCPCS: 36415; 80053; 80061; 82306; 83036; 84443; 85025

== ENCOUNTER → 2024-05-29 | Outpatient (CLI) | payer MEDICARE, BC ==
[2024-05-29 15:43] LABS: ALT 27 U/L (8-44); AST 21 U/L (13-35); Alkaline Phosphatase 83 U/L (41-126); BUN/Creat Ratio 22.29 Ratio (12.00-20.00); Blood Urea Nitrogen 15.6 mg/dL (9.0-27.0); Calcium 10.2 mg/dL (8.7-10.3); Carbon Dioxide 23.2 mmol/L (21.6-31.8); Chloride 103 mmol/L (96-109); Chol/HDL Ratio 2.77 Ratio; Globulin 2.1 g/dL (1.6-3.3); Glucose 119 mg/dL (70-110); Sodium 138 mmol/L (135-145); Total Bilirubin 0.4 mg/dL (0.3-1.2); Total Protein 6.1 g/dL (6.2-8.2)
[2024-05-29 18:10] LABS: Microalbumin Creatinine Ratio <13 mg/g Cr (0-30); Urine Creatinine 95.5 mg/dL (28.0-217.0)
== END | disposition home or self-care (01) ==
LOC: LABWHC1 10:01
PROVIDERS: ATTEND Family Medicine
DX: E11.9 Type 2 diabetes mellitus without complications (principal); J45.901 Unspecified asthma with (acute) exacerbation; F41.9 Anxiety disorder, unspecified
CPT/HCPCS: 36415; 80053; 80061; 82043; 82570; 83036; 84443

== ENCOUNTER → 2024-06-01 | Outpatient (CLI) | payer MEDICARE, BC ==
--- NOTE | 2024-06-02 19:52 | MM ---
Reason for Exam: Screening (asymptomatic). Last screening mammogram was performed 12 month(s) ago. Patient History: Menarche at age 14. First Full-Term at age 25. Left ovary removed at age 52. Right ovary removed at age 52. Hysterectomy at age 52. Postmenopausal. Patient has history of breast feeding. Paternal grandmother had breast cancer, age 70. Maternal aunt had breast cancer, age 40. Risk Values: Haleigh 5 year model risk: 1.5%. NCI Lifetime model risk: 5.2%. Prior Study Comparison: 05/25/2021 Bilateral Screening Mammogram, [facility]. 05/28/2022 Bilateral MG 3D screening mammo w/cad, [facility]. 05/29/2023 Bilateral MG 3D screening mammo w/cad, [facility]. Tissue Density: There are scattered areas of fibroglandular density. Findings: Analyzed By CAD. Punctate grouped calcifications on the left are unchanged. There is no suspicious group of microcalcifications or new suspicious mass in either breast. Overall Assessment: Benign, BI-RAD 2 Management: Screening Mammogram of both breasts in 1 year. Patient should continue monthly self-breast exams. A clinical breast exam by your physician is recommended on an annual basis. This exam should not preclude additional follow-up of suspicious palpable abnormalities. Note on Haleigh scores and lifetime risk: 1. A Haleigh score greater than 3% is considered moderate risk. If this is the case, consider specialist referral to assess eligibility for a risk reducing agent. 2. If overall lifetime risk for the development of breast cancer is 20% or higher, the patient may qualify for future screening with alternating mammogram and breast MRI. [facility], , 06/02/2024 7:32 PM. Electronically signed and approved by: Sajan Chen M.D. Radiologist
== END | disposition home or self-care (01) ==
LOC: RADMAMWWP 11:41
PROVIDERS: ATTEND Family Medicine
CPT/HCPCS: 77063; 77067

== ENCOUNTER → 2024-09-02 | Outpatient (CLI) | payer MEDICARE, BC ==
[2024-09-02 14:59] LABS: Basophils # (A) 0.03 X 10*3/uL (0.00-0.10); Basophils % (A) 0.2 %; Eosinophils # (A) 0.09 X 10*3/uL (0.04-0.35); Eosinophils % (A) 0.7 %; HCT 46.3 % (37.2-46.3); HGB 15.5 g/dL (12.0-15.0); Lymphocytes # (A) 3.67 X 10*3/uL (0.90-5.00); Lymphocytes % (A) 30.5 %; MCH 29.7 pg (27.0-32.0); MCHC 33.5 g/dL (32.0-37.0); MCV 88.7 FL (80.0-97.0); Mean Platelet Volume 8.6 FL (9.5-12.2); Monocytes # (A) 0.85 X 10*3/uL (0.20-1.00); Monocytes % (A) 7.1 %; NRBC Per 100 WBC 0 X 10*3/uL (0.00-0.01); Neutrophils # (A) 7.36 X 10*3/uL (1.80-7.70); Neutrophils % (A) 61.1 %; Platelet Count 437 X 10*3/uL (140-440); RBC 5.22 X 10*6/uL (4.10-5.20); RDW 12.4 % (11.5-14.5); WBC 12.05 X 10*3/uL (4.50-10.00)
[2024-09-02 16:46] LABS: ALT 26 U/L (8-44); AST 16 U/L (13-35); Albumin 4.3 g/dL (3.8-4.9); Albumin/Globulin Ratio 1.65 Ratio (1.60-3.17); Alkaline Phosphatase 108 U/L (41-126); BUN/Creat Ratio 26.14 Ratio (12.00-20.00); Blood Urea Nitrogen 18.3 mg/dL (9.0-27.0); Carbon Dioxide 23.5 mmol/L (21.6-31.8); Chloride 102 mmol/L (96-109); Chol/HDL Ratio 2.16 Ratio; Globulin 2.6 g/dL (1.6-3.3); Glucose 66 mg/dL (70-110); LDL Cholesterol,Calculated 64.1 mg/dL (0.0-131.0); Potassium 4.1 mmol/L (3.5-5.5); Sodium 140 mmol/L (135-145); Total Bilirubin 0.4 mg/dL (0.3-1.2); Total Protein 6.9 g/dL (6.2-8.2)
== END | disposition home or self-care (01) ==
LOC: LABWHC1 11:22
PROVIDERS: ATTEND Family Medicine
DX: E03.9 Hypothyroidism, unspecified (principal); E78.2 Mixed hyperlipidemia; E11.69 Type 2 diabetes mellitus with other specified complication
CPT/HCPCS: 36415; 80053; 80061; 83036; 84443; 85025

== ENCOUNTER → 2024-12-03 | Outpatient (CLI) | payer MEDICARE, BC ==
[2024-12-03 15:17] LABS: Basophils # (A) 0.06 X 10*3/uL (0.00-0.10); Eosinophils % (A) 1.6 %; HCT 41.8 % (37.2-46.3); HGB 13.9 g/dL (12.0-15.0); Lymphocytes # (A) 1.65 X 10*3/uL (0.90-5.00); Lymphocytes % (A) 26.9 %; MCHC 33.3 g/dL (32.0-37.0); MCV 90.1 FL (80.0-97.0); Mean Platelet Volume 9.1 FL (9.5-12.2); Monocytes % (A) 8.1 %; NRBC Per 100 WBC 0 X 10*3/uL (0.00-0.01); Neutrophils # (A) 3.81 X 10*3/uL (1.80-7.70); Neutrophils % (A) 62.1 %; Platelet Count 370 X 10*3/uL (140-440); RBC 4.64 X 10*6/uL (4.10-5.20); RDW 12.3 % (11.5-14.5); WBC 6.14 X 10*3/uL (4.50-10.00)
[2024-12-03 15:42] LABS: ALT 26 U/L (8-44); AST 23 U/L (13-35); Albumin 4.2 g/dL (3.8-4.9); Albumin/Globulin Ratio 1.91 Ratio (1.60-3.17); Alkaline Phosphatase 97 U/L (41-126); BUN/Creat Ratio 23.17 Ratio (12.00-20.00); Blood Urea Nitrogen 13.9 mg/dL (9.0-27.0); Calcium 10.8 mg/dL (8.7-10.3); Carbon Dioxide 25.7 mmol/L (21.6-31.8); Chloride 103 mmol/L (96-109); Chol/HDL Ratio 2.52 Ratio; Globulin 2.2 g/dL (1.6-3.3); Glucose 142 mg/dL (70-110); LDL Cholesterol,Calculated 65.8 mg/dL (0.0-131.0); Potassium 4.3 mmol/L (3.5-5.5); Sodium 139 mmol/L (135-145); Total Bilirubin 0.4 mg/dL (0.3-1.2); Total Protein 6.4 g/dL (6.2-8.2)
== END | disposition home or self-care (01) ==
LOC: LABWHC1 11:14
PROVIDERS: ATTEND Nurse Practitioner Family
DX: E11.69 Type 2 diabetes mellitus with other specified complication (principal); E78.2 Mixed hyperlipidemia; R35.0 Frequency of micturition
CPT/HCPCS: 36415; 80053; 80061; 83036; 84443; 85025

== ENCOUNTER → 2024-12-25 | Outpatient (CLI) | payer MEDICARE, BC ==
[2024-12-25 18:50] LABS: Ferritin 29.2 ng/mL (10.0-291.0); T4, Free (Free Thyroxine) 1.26 ng/dL (0.80-1.80)
== END | disposition home or self-care (01) ==
LOC: LABWHC1 12:36
PROVIDERS: ATTEND Nurse Practitioner Family
DX: E03.9 Hypothyroidism, unspecified (principal); E55.9 Vitamin D deficiency, unspecified; E11.69 Type 2 diabetes mellitus with other specified complication; F41.9 Anxiety disorder, unspecified
CPT/HCPCS: 36415; 82306; 82728; 84439; 84443